=== PATIENT | male | born 1940 | race Caucasian/White ===

== ENCOUNTER 2019-09-11 11:31 | Outpatient (CLI) | payer MEDICARE, SELFPAY ==
[2019-09-11 12:34] LABS: Basophils Percent Auto 0.3 % (0.2-1.2); Eosinophils Absolute Auto 0.2 K/mm3 (0-0.3); Eosinophils Percent Auto 2.6 % (0-4.4); Hematocrit 42.4 % (42.0-52.0); Hemoglobin 13.8 g/dL (14.0-18.0); Immature Granulocyte Absolute 0.03 K/mm3 (0.00-0.031); Immature Granulocyte Percent A 0.4 % (0-0.5); Lymphocytes Absolute Auto 1.42 K/mm3 (0.9-3.2); Lymphocytes Percent Auto 18.8 % (18.3-44.2); Mean Corpuscular HGB Conc 32.5 g/dl (32-36); Mean Corpuscular Hemoglobin 29.9 pg (26-34); Mean Platelet Volume 11.1 fl (7.4-10.4); Monocytes Absolute Auto 1.2 K/mm3 (0.1-0.6); Monocytes Percent Auto 16.1 % (2.6-8.5); Neutrophils Absolute Auto 4.7 K/mm3 (1.3-6.7); Neutrophils Percent Auto 61.8 % (45.5-73.1); Platelet Count Result 278 k/mm3 (150-375); Red Blood Count 4.61 M/mm3 (4.6-6.20); Red Cell Distribution Width 13.3 % (11.5-14.5); White Blood Count 7.6 K/mm3 (4.5-10.0)
[2019-09-11 12:42] LABS: Uric Acid 7.8 mg/dL (3.5-8.5)
== END 2019-09-11 11:32 | disposition home or self-care (01) ==
PROVIDERS: PCP Family Medicine; Visit Provider Physician Assistant
DX: M25.9 Joint disorder, unspecified (principal)
CPT/HCPCS: 36415; 84550; 85025

== ENCOUNTER 2019-09-23 14:27 | Outpatient (CLI) | payer MEDICARE, SELFPAY ==
--- NOTE | ~2019-09-23 | XR_ITS ---
EXAMINATION: XR abdomen/kub 1V DATE: 09/23/2019 14:48 INDICATION: Abdominal pain and right mid flank pain TECHNIQUE: A supine view of the abdomen on 2 radiographs was obtained. COMPARISON: CT dated 11/27/2018 FINDINGS: Small bowel anastomotic suture line in the right abdomen. Phlebolith in the left hemipelvis. Atherosc lerotic calcific a cyst in the right hemipelvis. No calcifications suspicious for urolithiasis. No di lated loops of gas-filled bowel to suggest obstruction. Severe lower lumbar facet osteoarthritis. Vis ualized portions of the lung bases are clear. IMPRESSION: 1. Normal bowel gas pattern with small bowel anastomotic suture line in the right abdomen. Reviewed, dictated and finalized at location A. ICATION TECHNICIAN IMPRESSION: 1. Normal bowel gas pattern with small bowel anastomotic suture line in the rig ht abdomen.
[2019-09-23 15:36] LABS: Basophils Absolute Auto 0.1 K/mm3 (0.0-0.1); Basophils Percent Auto 0.5 % (0.2-1.2); Eosinophils Absolute Auto 0.2 K/mm3 (0-0.3); Eosinophils Percent Auto 2.2 % (0-4.4); Hematocrit 41.9 % (42.0-52.0); Hemoglobin 13.7 g/dL (14.0-18.0); Immature Granulocyte Absolute 0.03 K/mm3 (0.00-0.031); Immature Granulocyte Percent A 0.3 % (0-0.5); Lymphocytes Percent Auto 15.4 % (18.3-44.2); Mean Corpuscular HGB Conc 32.7 g/dl (32-36); Mean Corpuscular Hemoglobin 30.3 pg (26-34); Mean Corpuscular Volume 92.7 fl (80-100); Mean Platelet Volume 10.5 fl (7.4-10.4); Monocytes Absolute Auto 1.3 K/mm3 (0.1-0.6); Monocytes Percent Auto 14.4 % (2.6-8.5); Neutrophils Absolute Auto 6.1 K/mm3 (1.3-6.7); Neutrophils Percent Auto 67.2 % (45.5-73.1); Platelet Count Result 275 k/mm3 (150-375); Red Blood Count 4.52 M/mm3 (4.6-6.20); Red Cell Distribution Width 13.3 % (11.5-14.5); White Blood Count 9.1 K/mm3 (4.5-10.0)
[2019-09-23 15:49] LABS: Alanine Aminotransferase 17 U/L (4-50); Alkaline Phosphatase 59 U/L (38-126); Amylase 98 U/L (30-110); Aspartate Amino Transferase 21 U/L (17-59); Bilirubin,Total 0.5 mg/dL (0.2-1.3); Blood Urea Nitrogen 31 mg/dL (9-20); Carbon Dioxide 29 mmol/L (22-30); Chloride 98 mmol/L (98-107); Estimated Glomerular Filt Rate 49; Glucose 98 mg/dL (75-110); Lipase 71 U/L (23-300); Potassium 4.4 mmol/L (3.4-5.0); Sodium 136 mmol/L (137-145)
== END 2019-09-23 14:28 | disposition home or self-care (01) ==
LOC: ANHIMG 14:31
PROVIDERS: PCP Family Medicine; Visit Provider Physician Assistant
DX: R10.9 Unspecified abdominal pain (principal)
CPT/HCPCS: 36415; 74018; 80053; 82150; 83690; 85025

== ENCOUNTER 2019-09-24 09:19 | Outpatient (CLI) | payer MEDICARE, SELFPAY ==
--- NOTE | ~2019-09-24 | CT_ITS ---
EXAMINATION: CT abdomen pelvis wo con DATE: 09/24/2019 09:40 INDICATION: Abdominal pain. TECHNIQUE: Computed tomography (CT) of the abdomen and pelvis was performed without intravenous contr ast. Automated exposure control and iterative reconstruction technique were employed. The dose-length product was 578.32 mGy-cm. COMPARISON: CT abdomen and pelvis 11/27/2018 FINDINGS: The visualized portions of the lung bases are clear without pneumonia or pleural effusion. The heart size is normal. There are coronary artery calcifications. No pericardial effusion. There ar e cysts in the liver measuring up to 1.9 cm. The gallbladder is normal in size. Dense material in the gallbladder may be sludge or stones. The pancreas, spleen, adrenal glands, and left kidney are mar l. There is a 1.9 cm cyst in right kidney. The prostate is severely enlarged. There is diverticulosis of the colon without evidence of diverticulitis. There is a bowel anastomosis in right abdomen. Ther e is new fat stranding near the anastomosis. There are no dilated loops of bowel. The appendix is nor mal. There are no pathologically enlarged lymph nodes. There is no free intraperitoneal fluid. There is moderate lumbar spondylosis. IMPRESSION: 1. New fat stranding in right abdomen near the bowel anastomosis, likely fat necrosis. Reviewed, dictated and finalized at location A. S OFFICE ASSISTANT IMPRESSION: 1. New fat stranding in right abdomen near the bowel anastomosis, likely fat ne crosis.
== END 2019-09-24 09:20 | disposition home or self-care (01) ==
LOC: ANHIMG 09:22
PROVIDERS: PCP Family Medicine; Visit Provider Physician Assistant
DX: R10.9 Unspecified abdominal pain (principal); Z87.19 Personal history of other diseases of the digestive system
CPT/HCPCS: 74176

== ENCOUNTER 2019-09-25 09:25 | Outpatient (CLI) | payer MEDICARE, SELFPAY ==
[2019-09-25 10:04] LABS: Basophils Percent Auto 0.3 % (0.2-1.2); Eosinophils Absolute Auto 0.1 K/mm3 (0-0.3); Eosinophils Percent Auto 1.6 % (0-4.4); Immature Granulocyte Absolute 0.01 K/mm3 (0.00-0.031); Immature Granulocyte Percent A 0.1 % (0-0.5); Lymphocytes Absolute Auto 1.11 K/mm3 (0.9-3.2); Lymphocytes Percent Auto 15.7 % (18.3-44.2); Mean Corpuscular HGB Conc 32.6 g/dl (32-36); Mean Corpuscular Hemoglobin 29.6 pg (26-34); Mean Corpuscular Volume 90.9 fl (80-100); Mean Platelet Volume 10.1 fl (7.4-10.4); Monocytes Absolute Auto 1.1 K/mm3 (0.1-0.6); Monocytes Percent Auto 15.8 % (2.6-8.5); Neutrophils Absolute Auto 4.7 K/mm3 (1.3-6.7); Neutrophils Percent Auto 66.5 % (45.5-73.1); Platelet Count Result 274 k/mm3 (150-375); Red Blood Count 4.73 M/mm3 (4.6-6.20); White Blood Count 7.1 K/mm3 (4.5-10.0)
== END 2019-09-25 09:26 | disposition home or self-care (01) ==
PROVIDERS: PCP Family Medicine; Visit Provider Physician Assistant
DX: R10.9 Unspecified abdominal pain (principal)
CPT/HCPCS: 36415; 85025

== ENCOUNTER 2019-10-15 09:17 | Outpatient (CLI) | payer MEDICARE, SELFPAY ==
[2019-10-15 10:47] LABS: CRP < 0.5 mg/dL (<1.0); Uric Acid 8.3 mg/dL (3.5-8.5)
[2019-10-15 10:52] LABS: Erythrocyte Sedimentation Rate 27 mm/hr (0-20)
[2019-10-15 10:54] LABS: Rheumatoid Factor < 8.6 IU/ML (<12)
[2019-10-19 11:26] LABS: Anti Cyclic Citrullinated Pept <16 Units (<20)
== END 2019-10-15 09:18 | disposition home or self-care (01) ==
PROVIDERS: PCP Family Medicine
DX: M13.0 Polyarthritis, unspecified (principal)
CPT/HCPCS: 36415; 84550; 85652; 86140; 86200; 86430

== ENCOUNTER 2021-04-21 06:59 | Outpatient (CLI) | payer MEDICARE, SELFPAY ==
[2021-04-21 08:04] LABS: Hematocrit 42.9 % (42.0-52.0); Mean Corpuscular HGB Conc 32.6 g/dl (32-36); Mean Corpuscular Hemoglobin 31.3 pg (26-34); Mean Platelet Volume 10.8 fl (7.4-10.4); Platelet Count Result 226 k/mm3 (150-375); Red Blood Count 4.47 M/mm3 (4.6-6.20); Red Cell Distribution Width 13.2 % (11.5-14.5); White Blood Count 5.2 K/mm3 (4.5-10.0)
[2021-04-21 08:09] LABS: Alanine Aminotransferase 19 U/L (4-50); Albumin Level 4.3 g/dL (3.5-5.1); Alkaline Phosphatase 57 U/L (38-126); Anion Gap 8 mmol/L (8-16); Aspartate Amino Transferase 26 U/L (17-59); Bilirubin,Total 0.9 mg/dL (0.2-1.3); Blood Urea Nitrogen 23 mg/dL (9-20); Calcium 9.3 mg/dL (8.4-10.2); Carbon Dioxide 26 mmol/L (22-30); Chloride 104 mmol/L (98-107); Cholesterol 143 mg/dL (0-200); Estimated Glomerular Filt Rate 53; Glucose 102 mg/dL (65-110); HDL Direct 38 mg/dL; Potassium 4.4 mmol/L (3.4-5.0); Sodium 138 mmol/L (137-145); Triglycerides 241 mg/dL (<150)
[2021-04-21 08:15] LABS: Add Urine Microscopic? YES; Appearance Urine Clear (Clear); Bilirubin Urine Negative (Negative); Blood Urine Negative (Negative); Color Urine Yellow (Yellow); Glucose Urine UA Negative (Negative); Ketones Urine Negative (Negative); Leukocyte Esterase Ur Negative LEU/UL (NEGATIVE); Mucus Urine Rare /lpf; Nitrate Urine Negative (Negative); Protein Urine 1+ mg/dL (Negative); RBC Urine 0-2 /hpf (0-2); Specific Grav Ur 1.017 (1.001-1.035); Squamous Epithelial Cell Urine Rare /hpf (Few); Urobilinogen Urine Negative mg/dL (<2.0); WBC Urine 0-3 /hpf (0-3)
[2021-04-21 08:21] LABS: LDL Cholesterol Direct 50 mg/dL
== END 2021-04-21 07:00 | disposition home or self-care (01) ==
PROVIDERS: PCP Family Medicine; Visit Provider Family Medicine
DX: Z00.00 Encounter for general adult medical examination without abnormal findings (principal); I13.10 Hypertensive heart and chronic kidney disease without heart failure, with stage 1 through stage 4 chronic kidney disease, or unspecified chronic kidney disease; N18.30 Chronic kidney disease, stage 3 unspecified; I25.10 Atherosclerotic heart disease of native coronary artery without angina pectoris; E78.2 Mixed hyperlipidemia; Z87.19 Personal history of other diseases of the digestive system
CPT/HCPCS: 36415; 80053; 80061; 81001; 84443; 85027

== ENCOUNTER → 2021-08-02 09:36 | Outpatient (CLI) | payer MEDICARE, SELFPAY ==
[2021-08-03 12:30] LABS: Influenza Control Positive
[2021-08-03 19:39] LABS: SARS-CoV-2 RNA PCR Negative
== END ==
PROVIDERS: PCP Family Medicine; Visit Provider Physician Assistant
DX: R05.9 Cough, unspecified (principal); R68.89 Other general symptoms and signs; Z20.822 Contact with and (suspected) exposure to COVID-19
CPT/HCPCS: 87804; C9803; U0003; U0005

== ENCOUNTER 2021-09-02 13:14 | Outpatient (CLI) | payer MEDICARE, SELFPAY | END 2021-09-02 13:15 | disposition home or self-care (01) | PROVIDERS: PCP Family Medicine; Visit Provider Otolaryngology | DX: H90.3 Sensorineural hearing loss, bilateral (principal) | CPT/HCPCS: 92557; 92567 ==

== ENCOUNTER 2021-09-23 11:30 | Outpatient (RCR) | payer MEDICARE, SELFPAY | END 2021-09-23 23:59 | disposition home or self-care (01) | LOC: ANHAUDIO 11:30 | PROVIDERS: PCP Family Medicine; Visit Provider Family Medicine | DX: Z46.1 Encounter for fitting and adjustment of hearing aid (principal) | CPT/HCPCS: 92593; V5014 ==

== ENCOUNTER 2022-04-27 07:09 | Outpatient (CLI) | payer MEDICARE, SELFPAY ==
[2022-04-27 08:22] LABS: Hematocrit 42.2 % (42.0-52.0); Mean Corpuscular HGB Conc 33.2 g/dl (32-36); Mean Corpuscular Hemoglobin 30.8 pg (26-34); Mean Corpuscular Volume 92.7 fl (80-100); Mean Platelet Volume 10.8 fl (7.4-10.4); Platelet Count Result 264 k/mm3 (150-375); Red Blood Count 4.55 M/mm3 (4.6-6.20); Red Cell Distribution Width 13.1 % (11.5-14.5); White Blood Count 6.4 K/mm3 (4.5-10.0)
[2022-04-27 08:33] LABS: Appearance Urine Clear (Clear); Bilirubin Urine Negative (Negative); Blood Urine Negative (Negative); Color Urine Yellow (Yellow); Glucose Urine UA Negative (Negative); Ketones Urine Negative (Negative); Leukocyte Esterase Ur Negative LEU/UL (NEGATIVE); Nitrate Urine Negative (Negative); Protein Urine Negative (Negative); Urobilinogen Urine 0.2 mg/dL (<2.0); pH Urine 5.5 (5.0-9.0)
[2022-04-27 08:44] LABS: Add Urine Microscopic? NO
[2022-04-27 10:22] LABS: Alanine Aminotransferase 27 U/L (6-50); Albumin Level 4.5 g/dL (3.5-5.1); Alkaline Phosphatase 64 U/L (38-126); Anion Gap 12 mmol/L (8-16); Aspartate Amino Transferase 29 U/L (17-59); Bilirubin,Total 0.8 mg/dL (0.2-1.3); Blood Urea Nitrogen 27 mg/dL (9-20); Calcium 9.3 mg/dL (8.4-10.2); Carbon Dioxide 24 mmol/L (22-30); Chloride 104 mmol/L (98-107); Cholesterol 142 mg/dL (0-200); Estimated Glomerular Filt Rate 45; Glucose 106 mg/dL (65-110); HDL Direct 32 mg/dL; Potassium 4.5 mmol/L (3.4-5.0); Sodium 140 mmol/L (137-145); Triglycerides 321 mg/dL (<150)
[2022-04-27 10:35] LABS: LDL Cholesterol Direct 42 mg/dL
== END 2022-04-27 07:10 | disposition home or self-care (01) ==
LOC: ANHLAB 07:12
PROVIDERS: PCP Family Medicine; Visit Provider Family Medicine
DX: E78.2 Mixed hyperlipidemia (principal); Z87.19 Personal history of other diseases of the digestive system; I13.10 Hypertensive heart and chronic kidney disease without heart failure, with stage 1 through stage 4 chronic kidney disease, or unspecified chronic kidney disease; N18.30 Chronic kidney disease, stage 3 unspecified; I25.10 Atherosclerotic heart disease of native coronary artery without angina pectoris; Z00.00 Encounter for general adult medical examination without abnormal findings
CPT/HCPCS: 36415; 80053; 80061; 81003; 84443; 85027

== ENCOUNTER 2022-05-18 11:39 | Outpatient (CLI) | payer MEDICARE, SELFPAY ==
--- NOTE | ~2022-05-18 | CT_ITS ---
EXAMINATION: CT brain wo con DATE: 05/18/2022 12:00 INDICATION: Headache. Loss of balance. TECHNIQUE: Computed tomography (CT) of the head was performed without intravenous contrast. The mA wa s adjusted according to patient size. Iterative reconstruction technique was employed. The dose-lengt h product was 605.33 mGy-cm. 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 There is no intracranial hemorrhage or abno rmal intracranial mass lesion. The ventricles are normal in size. The paranasal sinuses are clear. Th e mastoid air cells are normal. The orbits are normal. IMPRESSION: 1. 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 Reviewed, dictated and finalized at location A.
== END 2022-05-18 11:40 | disposition home or self-care (01) ==
PROVIDERS: PCP Family Medicine; Visit Provider Nurse Practitioner Family
DX: R51.9 Headache, unspecified (principal); I63.9 Cerebral infarction, unspecified
CPT/HCPCS: 70450

== ENCOUNTER 2022-05-25 13:08 | Outpatient (CLI) | payer MEDICARE, SELFPAY ==
--- NOTE | ~2022-05-25 | CT_ITS ---
EXAMINATION: CT brain wo/w & sinus wo con DATE: 05/25/2022 14:12 INDICATION: Eye pain. TECHNIQUE: Computed tomography (CT) of the head was performed without and with 100 mL Omnipaque [address] of the paranasal sinuses was performed without contrast. The mA was adjusted according to patient size. Iterative reconstruction technique was employed. The dose-length product w as 1513.33 mGy-cm. COMPARISON: Head CT 05/18/2022 FINDINGS: CT HEAD: There is a small old infarct in the right parietal lobe. There is no intracranial hemorrhag e, acute infarction, or abnormal intracranial mass lesion. The ventricles are normal in size. The mas toid air cells are normal. The orbits are normal. CT SINUSES: There is mild mucosal thickening in the frontal recesses and ethmoid sinuses. The sphenoi d and maxillary sinuses are clear. The ostiomeatal units are patent. The nasal septum is at midline. IMPRESSION: 1. 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 2. Mild mucosal thickening in the paranasal sinuses. Reviewed, dictated and finalized at location A.
== END 2022-05-25 13:09 | disposition home or self-care (01) ==
PROVIDERS: PCP Family Medicine; Visit Provider Specialist
DX: H57.11 Ocular pain, right eye (principal); R93.0 Abnormal findings on diagnostic imaging of skull and head, not elsewhere classified
CPT/HCPCS: 70470; 70486

== ENCOUNTER 2022-09-04 07:53 | Outpatient (CLI) | payer MEDICARE, SELFPAY | END 2022-09-04 07:54 | disposition home or self-care (01) | LOC: ANHAUDIO 07:55 | PROVIDERS: PCP Family Medicine; Visit Provider Nurse Practitioner Family | DX: H90.3 Sensorineural hearing loss, bilateral (principal) | CPT/HCPCS: 92557; 92567 ==

== ENCOUNTER 2022-09-21 13:00 | Outpatient (RCR) | payer MEDICARE, SELFPAY | END 2022-09-21 23:59 | disposition home or self-care (01) | LOC: ANHAUDIO 13:00 | PROVIDERS: PCP Family Medicine; Visit Provider Family Medicine | DX: Z46.1 Encounter for fitting and adjustment of hearing aid (principal); H91.92 Unspecified hearing loss, left ear | CPT/HCPCS: 99199; V5261 ==

== ENCOUNTER 2022-10-31 09:08 | Outpatient (CLI) | payer MEDICARE, SELFPAY ==
[2022-10-31 10:35] LABS: Alanine Aminotransferase 24 U/L (6-50); Albumin Level 4.3 g/dL (3.5-5.1); Alkaline Phosphatase 67 U/L (38-126); Anion Gap 6 mmol/L (8-16); Aspartate Amino Transferase 26 U/L (17-59); Bilirubin,Total 0.7 mg/dL (0.2-1.3); Blood Urea Nitrogen 35 mg/dL (9-20); Calcium 8.9 mg/dL (8.4-10.2); Carbon Dioxide 29 mmol/L (22-30); Chloride 104 mmol/L (98-107); Estimated Glomerular Filt Rate 53; Glucose 91 mg/dL (65-110); Potassium 5.1 mmol/L (3.4-5.0); Sodium 139 mmol/L (137-145)
== END 2022-10-31 09:09 | disposition home or self-care (01) ==
PROVIDERS: PCP Family Medicine; Visit Provider Family Medicine
DX: I13.10 Hypertensive heart and chronic kidney disease without heart failure, with stage 1 through stage 4 chronic kidney disease, or unspecified chronic kidney disease (principal)
CPT/HCPCS: 36415; 80053

== ENCOUNTER 2023-10-31 09:10 | Outpatient (CLI) | payer MEDICARE, SELFPAY ==
--- NOTE | ~2023-10-31 | XR_ITS ---
EXAMINATION:XR_CERV2-3V_CR DATE: 10/31/2023 09:53 INDICATION: Neck pain TECHNIQUE: AP, lateral, and odontoid views of the cervical spine are provided. COMPARISON: None FINDINGS: There are 3 mm of anterolisthesis of C4 on C5. The odontoid process is intact. No fracture is identified. The vertebral body heights are maintained. There is moderate loss of intervertebral di sc space height from C4-5 through C6-7. Prevertebral soft tissues are normal. Small degenerative oste ophytes project from the anterior endplates of multiple vertebral bodies. There is multilevel moderat e facet and uncovertebral joint osteoarthritis. IMPRESSION: 1. Moderate cervical spondylosis without acute findings. Reviewed, dictated and finalized at location F.
[2023-10-31 10:07] LABS: Alanine Aminotransferase 24 U/L (6-50); Albumin Level 4.1 g/dL (3.5-5.1); Alkaline Phosphatase 62 U/L (38-126); Anion Gap 6 mmol/L (8-16); Aspartate Amino Transferase 26 U/L (17-59); Bilirubin,Total 0.7 mg/dL (0.2-1.3); Blood Urea Nitrogen 32 mg/dL (9-20); Calcium 9.1 mg/dL (8.4-10.2); Carbon Dioxide 26 mmol/L (22-30); Chloride 104 mmol/L (98-107); Estimated Glomerular Filt Rate 52; Glucose 98 mg/dL (65-110); Potassium 4.7 mmol/L (3.4-5.0); Sodium 136 mmol/L (137-145)
== END 2023-10-31 09:11 | disposition home or self-care (01) ==
PROVIDERS: PCP Family Medicine; Visit Provider Family Medicine
DX: I13.10 Hypertensive heart and chronic kidney disease without heart failure, with stage 1 through stage 4 chronic kidney disease, or unspecified chronic kidney disease (principal); M54.2 Cervicalgia; M47.892 Other spondylosis, cervical region
CPT/HCPCS: 36415; 72040; 80053

== ENCOUNTER 2024-05-01 07:13 | Outpatient (CLI) | payer MEDICARE, SELFPAY ==
[2024-05-01 08:38] LABS: Hematocrit 41.8 % (42.0-52.0); Hemoglobin 13.7 g/dL (14.0-18.0); Mean Corpuscular HGB Conc 32.8 g/dl (32-36); Mean Corpuscular Hemoglobin 30.3 pg (26-34); Mean Corpuscular Volume 92.5 fl (80-100); Mean Platelet Volume 10.9 fl (7.4-10.4); Platelet Count Result 299 k/mm3 (150-375); Red Blood Count 4.52 M/mm3 (4.6-6.20); Red Cell Distribution Width 13.6 % (11.5-14.5); White Blood Count 8.9 K/mm3 (4.5-10.0)
[2024-05-01 08:53] LABS: Carbon Dioxide 25 mmol/L (22-30); Chloride 101 mmol/L (98-107); Potassium 4.4 mmol/L (3.4-5.0); Sodium 137 mmol/L (137-145)
[2024-05-01 08:54] LABS: Alanine Aminotransferase 21 U/L (6-50); Albumin Level 4.5 g/dL (3.5-5.1); Alkaline Phosphatase 51 U/L (38-126); Anion Gap 11 mmol/L (4-12); Aspartate Amino Transferase 24 U/L (17-59); Bilirubin,Total 0.9 mg/dL (0.2-1.3); Blood Urea Nitrogen 33 mg/dL (9-20); Calcium 9.2 mg/dL (8.4-10.2); Cholesterol 112 mg/dL (0-200); Estimated Glomerular Filt Rate 48; Glucose 88 mg/dL (65-110); HDL Direct 34 mg/dL; Triglycerides 131 mg/dL (<150)
[2024-05-01 08:58] LABS: Add Urine Microscopic? YES; Appearance Urine Clear (Clear); Bacteria Urine None Seen /hpf; Bilirubin Urine Negative (Negative); Blood Urine Negative (Negative); Color Urine Yellow (Yellow); Glucose Urine UA Negative (Negative); Ketones Urine Negative (Negative); Leukocyte Esterase Ur Negative LEU/UL (Negative); Nitrate Urine Negative (Negative); Non Pathogenic Casts 0-2; Protein Urine Trace mg/dL (Negative); RBC Urine 0-2 /hpf (0-2); Specific Grav Ur 1.015 (1.001-1.035); Squamous Epithelial Cell Urine None Seen /hpf (Few); Urobilinogen Urine 0.2 mg/dL (<2.0); WBC Urine 0-5 /hpf (0-3)
[2024-05-01 09:04] LABS: LDL Cholesterol Direct 48 mg/dL
== END 2024-05-01 07:14 | disposition home or self-care (01) ==
LOC: ANHLAB 07:16
PROVIDERS: PCP Family Medicine; Visit Provider Physician Assistant Medical
DX: E78.2 Mixed hyperlipidemia (principal); I13.10 Hypertensive heart and chronic kidney disease without heart failure, with stage 1 through stage 4 chronic kidney disease, or unspecified chronic kidney disease; I25.10 Atherosclerotic heart disease of native coronary artery without angina pectoris; I48.0 Paroxysmal atrial fibrillation; N18.30 Chronic kidney disease, stage 3 unspecified; N40.1 Benign prostatic hyperplasia with lower urinary tract symptoms; R97.20 Elevated prostate specific antigen [PSA]; Z87.19 Personal history of other diseases of the digestive system
CPT/HCPCS: 36415; 80053; 80061; 81001; 84443; 85027

== ENCOUNTER 2024-05-05 10:37 | Outpatient (CLI) | payer MEDICARE, SELFPAY ==
[2024-05-05 12:19] LABS: Prostate Specific Antigen 4.6 ng/mL (< OR = 4.0)
[2024-05-05 12:24] LABS: Vitamin D 25 Hydroxy 52.8 ng/mL
[2024-05-05 13:02] LABS: Folic Acid > 20.0 ng/mL (2.76->20)
== END 2024-05-05 10:38 | disposition home or self-care (01) ==
LOC: ANHLAB 10:45
PROVIDERS: PCP Family Medicine; Visit Provider Family Medicine
DX: E55.9 Vitamin D deficiency, unspecified (principal); R53.83 Other fatigue; R97.20 Elevated prostate specific antigen [PSA]; Z12.5 Encounter for screening for malignant neoplasm of prostate
CPT/HCPCS: 36415; 82306; 82607; 82746; 84153

== ENCOUNTER 2024-05-05 11:07 | Outpatient (CLI) | payer MEDICARE, SELFPAY ==
--- NOTE | ~2024-05-05 | XR_ITS ---
Clinical Indication: Cough PA and lateral views of the chest: Comparison: 04/10/2019 Findings: The lungs are clear, without evidence of focal consolidation or pleural effusion. Cardiome diastinal silhouette is within normal limits. Bones and soft tissues are unremarkable. Impression: Normal chest. Reviewed, dictated and finalized at [facility]. Impression: Normal chest.
== END 2024-05-05 11:08 | disposition home or self-care (01) ==
PROVIDERS: PCP Family Medicine; Visit Provider Family Medicine
DX: R05.9 Cough, unspecified (principal)
CPT/HCPCS: 71046

== ENCOUNTER 2024-05-19 06:39 | Inpatient (IN) | payer MEDICARE, SELFPAY ==
[2024-05-19] VITALS (24 sets, daily range): BP systolic 113–147; BP diastolic 43–78; PULSE 72–90; RESP 14–21; TEMP 36.2–36.9; O2SAT 97–100; BMI 25.4
--- NOTE | 2024-05-19 07:11 | ECG_ITS ---
Test Date: 2024-05-19 08:34:55 Measurements Intervals Victor Rate: 80 P: 0 GA: 0 QRS: -29 QRSD: 134 T: 109 QT: 393 QTc: 456 Interpretive Statements ATRIAL FLUTTER/TACHYCARDIA LEFT BUNDLE BRANCH BLOCK [120+ ms QRS DURATION, 80+ ms Q/S IN V1/V2, 85+ ms R IN I/aVL/V5/V6] ABNORMAL ECG No previous ECG available for comparison Electronically Signed On 05-19-2024 14:33:57 CDT by Eduardo Villagomez M.D.
--- NOTE | 2024-05-19 07:26 | ED.GENADULT ---
HPI - General Adult General Chief complaint: Dizziness Stated complaint: light headed Time Seen by Provider: 05/19/24 07:01 History of Present Illness HPI narrative: 83-year-old male presenting to the emergency department for evaluation for lightheaded dizziness. Patient did have a dental extraction last Sunday. Patient has been taking penicillin but states this does bother his stomach. Patient states he has had stomach irritation since starting the penicillin. Patient is also reports associated lightheaded dizziness. Patient did have a black soft tarry stool this morning. Patient is on Xarelto. Patient denies any prior history of GI bleed. Patient had stopped his Xarelto for the to the extraction but did restart after the extraction. Related Data Home Medications Medication Instructions Recorded Confirmed ascorbic acid (vitamin C) 500 mg 500 mg PO DAILY 06/14/19 05/19/24 tablet (Vitamin C) rivaroxaban 20 mg tablet (Xarelto) 20 mg PO DAILY 06/14/19 05/19/24 mtlzxxizeqof-bqrukkjg-xceskw tablet 1 tablet PO DAILY 05/19/24 05/19/24 penicillin V potassium 500 mg 500 mg PO DAILY 05/19/24 05/19/24 tablet Allergies Allergy/AdvReac Type Severity Reaction Status Date / Time lincomycin Allergy Intermediate RASH Verified 05/19/24 06:50 Cephalosporins Allergy Unknown Unknown Verified 05/19/24 06:50 Sulfa (Sulfonamide Allergy Unknown Unknown Verified 05/19/24 06:50 Antibiotics) Tetracyclines Allergy Unknown Unknown Verified 05/19/24 06:50 Review of Systems Review of Systems: All systems reviewed & are unremarkable except as noted in HPI and below PMFSH Past Medical History Medical History Atrial fibrillation CAD (coronary artery disease) CKD (chronic kidney disease), stage III Elevated PSA Hearing loss Hiatal hernia Hypertension Surgical History Surgical History History of lumbar surgery S/P coronary artery stent placement S/P small bowel resection Family History Family History Sibling Hypertension Carcinoma of colon Family history of coronary artery disease Mother Cerebrovascular accident Father Cerebral aneurysm Social History Social History (Updated 05/19/24 @ 16:45 by Debby Huerta APRN) Social History: 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 He spent 20 of his years living in [place], [place] before returning to [place]. He has a son, Timothy. He quit drinking alcohol 1 year ago but was never a heavy drinker. He is a former smoker. He denies illicit drug use. Smoking packs per day: 1 Smoking cigarettes per day: 20.0 Years smoked: 30 Smoking pack-years: 30.00 Smoking status: Never smoker Tobacco type: cigarettes Second hand tobacco smoke exposure: No Smoking end date: 08/13/87 Alcohol intake: never Drinks per week: 7 Substance use: never Substance use type: does not use Do You Feel Safe in your Home?: Yes Lack of Transportation: No Lack of Food: Never True Current Housing: I Have Housing Concerned About Future Housing: No Difficulty Paying Gas/Electric Bills: No Difficulty Paying for Meds: No Currently Unemployed: No Education: Master's Degree or Higher Difficulty w/ Childcare or Family Care: No Living arrangements: with family Occupation/Education: retired Gender identity (if verbalized by the patient): Male Spiritual care concerns: No Exam Narrative: APPEARANCE: Well appearing, no pain, no distress, well-nourished. HEAD: normocephalic, atraumatic. EYES: PERRLA/EOMI, conjunctivae clear. NOSE: Normal no drainage EARS:TMS clear with good light reflex. THROAT: Pharynx clear, no exudate. NECK: Supple. No adenopathy, no masses. RESPIRATORY: Airway patent, respirations nonlabored. Clear to auscultation bilaterally, no r
[2024-05-19 08:11] LABS: Add Urine Microscopic? NO; Appearance Urine Clear (Clear); Bilirubin Urine Negative (Negative); Blood Urine Negative (Negative); Color Urine Yellow (Yellow); Glucose Urine UA Negative (Negative); Ketones Urine Trace mg/dL (Negative); Leukocyte Esterase Ur Negative LEU/UL (Negative); Nitrate Urine Negative (Negative); Protein Urine Negative (Negative); Specific Grav Ur 1.019 (1.001-1.035); Urobilinogen Urine 0.2 mg/dL (<2.0)
--- NOTE | 2024-05-19 08:11 | PC.NURSE ---
Pt denies h/a, syncope or chest pain. Ortho statics completed, labs drawn.
[2024-05-19 08:14] LABS: Basophils Percent Auto 0.2 % (0.2-1.2); Eosinophils Percent Auto 0.2 % (0-4.4); Hematocrit 31.1 % (42.0-52.0); Hemoglobin 9.9 g/dL (14.0-18.0); Immature Granulocyte Absolute 0.02 K/mm3 (0.00-0.031); Immature Granulocyte Percent A 0.2 % (0-0.5); Lymphocytes Absolute Auto 0.84 K/mm3 (0.9-3.2); Lymphocytes Percent Auto 10.1 % (18.3-44.2); Mean Corpuscular HGB Conc 31.8 g/dl (32-36); Mean Corpuscular Volume 94.2 fl (80-100); Mean Platelet Volume 11.2 fl (7.4-10.4); Monocytes Absolute Auto 0.7 K/mm3 (0.1-0.6); Neutrophils Absolute Auto 6.7 K/mm3 (1.3-6.7); Neutrophils Percent Auto 81.3 % (45.5-73.1); Platelet Count Result 268 k/mm3 (150-375); Red Cell Distribution Width 13.4 % (11.5-14.5); White Blood Count 8.3 K/mm3 (4.5-10.0)
[2024-05-19 08:20] LABS: Alanine Aminotransferase 18 U/L (6-50); Albumin Level 3.6 g/dL (3.5-5.1); Alkaline Phosphatase 38 U/L (38-126); Anion Gap 10 mmol/L (4-12); Aspartate Amino Transferase 20 U/L (17-59); Bilirubin,Total 0.3 mg/dL (0.2-1.3); Blood Urea Nitrogen 77 mg/dL (9-20); Calcium 8.6 mg/dL (8.4-10.2); Carbon Dioxide 20 mmol/L (22-30); Chloride 108 mmol/L (98-107); Estimated CRCL calculation 38 ml/min; Estimated Glomerular Filt Rate 52; Glucose 118 mg/dL (65-110); Potassium 4.9 mmol/L (3.4-5.0); Sodium 138 mmol/L (137-145)
[2024-05-19 08:22] LABS: INR 1.7; Prothrombin Time 20.8 Seconds (11.1-14.7)
[2024-05-19 08:23] LABS: Partial Thromboplastin Time 34.6 Seconds (22.3-36.8)
[2024-05-19] MEDS: PANTOPRAZOLE SODIUM IV 40 MG VIAL IV PUSH ×2 (08:54→20:17)
[2024-05-19] MEDS: FAMOTIDINE 20 MG/2 ML VIAL IV PUSH (08:55)
--- NOTE | 2024-05-19 09:00 | PC.NURSE ---
Pt assisted standing to void, became fair, increase dizziness & feeling of syncope. Pt assisted back to bed. Instructed to call for help when needing to get up.
[2024-05-19 10:03] LABS: Iron 89 ug/dL (49-181)
[2024-05-19 10:13] LABS: Percent Iron Saturation 32 % (20-50)
--- NOTE | 2024-05-19 11:37 | ADMGEN ---
This patient, Mian Hartman, was admitted to 3 [facility] Surg Room 307-02. Patient/family oriented to hospital policies and general routines including ID bracelet, bed and alarms, visiting hours, pain management, procedures, bathroom and other care routines, personal items, smoking policy, room service/diet, and visiting hours. Information on how to activate the Rapid Response Team has been discussed. Patient/Family are encouraged to report perceived risks to care and to ask questions if they do not understand what they are told or what they should do.
--- NOTE | 2024-05-19 12:00 | PC.NURSE ---
On 05/19/24, the student, [Sanotsh Gutierrez ], provided care and completed [facility] documentation on this patient. I have reviewed the student's documentation and agree with the findings.
[2024-05-19] MEDS: ONDANSETRON INJ 4 MG/2 ML VIAL IV PUSH (13:10)
--- NOTE | 2024-05-19 13:39 | PM.IMHP ---
H&P: HPI History of Present Illness Date/Time: 05/19/24 13:39 Chief Complaint: Dizziness Narrative: This is an 83-year-old gentleman with a past medical history significant for CKD stage 3, hypertension, atrial fibrillation on Xarelto, hiatal hernia, osteoarthritis, and CAD with coronary artery stent who presented to the emergency room with complaints of dizziness. The patient provides the following history. Last week on Sunday he had a tooth extraction and was given oral penicillin for 7 days. After taking a couple of doses he was having diarrhea and decided to take an Imodium with good result. This morning around 0400 he had a dark black and tarry bowel movement with a second black stool occurring at 0500. At this time he had significant dizziness, became pale, and diaphoretic with near fainting. He called 911 and was transported to [place] ED for evaluation. He states he has never had an episode like this before. On exam he appears comfortable resting in bed. He reports he was able to urinate at the side of the bed without recurrent dizziness. He denies headache, sore throat, runny nose, fever, chills, chest pain, shortness of breath, nausea, vomiting, diarrhea, or open wounds/sores. He did have an episode of mid-lower abdominal pain prior to his EGD which he attributed to hunger pains . This pain has since resolved. In the emergency room, labs were significant for hemoglobin 9.9 adult of 13.7, MCHC 31.8, neutrophils anxiety, PT 28 currently chloride 108, CO2 20, BUN 77, creatinine 1.30, and glucose 118. Urinalysis showed clear yellow urine with trace ketones 80s. EKG on admission showed atrial flutter with a rate of 80 and a left bundle-branch block. No previous study for comparison. Orthostatic vital signs were normal. Vitals on arrival were blood pressure 132/75 mmHg, heart rate 72, RR 20, 100% room air, and 97.6. The patient was admitted with GI consult for emergent EGD for suspected upper GI bleed. Review of Systems Review of Systems: All systems reviewed & are unremarkable except as noted in HPI and below PMFSH Past Medical History Medical History Atrial fibrillation CAD (coronary artery disease) CKD (chronic kidney disease), stage III Elevated PSA Hearing loss Hiatal hernia Hypertension Surgical History Surgical History History of lumbar surgery S/P coronary artery stent placement S/P small bowel resection Family History Family History Sibling Hypertension Carcinoma of colon Family history of coronary artery disease Mother Cerebrovascular accident Father Cerebral aneurysm Social History Social History (Updated 05/19/24 @ 16:45 by Debby Huerta APRN) Social History: 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 He spent 20 of his years living in [place], [place] before returning to [place]. He has a son, Timothy. He quit drinking alcohol 1 year ago but was never a heavy drinker. He is a former smoker. He denies illicit drug use. Smoking packs per day: 1 Smoking cigarettes per day: 20.0 Years smoked: 30 Smoking pack-years: 30.00 Smoking status: Never smoker Tobacco type: cigarettes Second hand tobacco smoke exposure: No Smoking end date: 08/13/87 Alcohol intake: never Drinks per week: 7 Substance use: never Substance use type: does not use Do You Feel Safe in your Home?: Yes Lack of Transportation: No Lack of Food: Never True Current Housing: I Have Housing Concerned About Future Housing: No Difficulty Paying Gas/Electric Bills: No Difficulty Paying for Meds: No Currently Unemployed: No Education: Master's Degree or Higher Difficulty w/ Childcare or Family Care: No Living arrangements: with family Occupation/Education: retired Gender identity (if verbal
[2024-05-19] MEDS: LACTATED RINGERS 1,000 ML 150 ML IV CONT (13:45)
--- NOTE | 2024-05-19 13:54 | WPDANESEPPF ---
Anes - Initial Pre Proc Eval Procedure: Operation Date: 05/19/24 15:00 Proposed Procedures p Esophagogastroduodenoscopy - Marvin Anguiano MD Date/Time: 05/19/24 13:54 Surgeon: India Barnes MD Pre Op Diagnosis: upper gi bleed,anemia,lightheaded Patient Data Age: 83 Gender: M Height: 1.78 m Weight: 80.6 kg Last Vital Signs Temp 36.2 C L 05/19/24 13:35 Pulse 83 05/19/24 13:35 Resp 16 05/19/24 13:35 BP 123/59 L 05/19/24 13:35 Pulse Ox 100 05/19/24 13:35 O2 Del Method Room Air 05/19/24 13:35 Allergies Allergy/AdvReac Type Severity Reaction Status Date / Time lincomycin Allergy Intermediate RASH Verified 05/19/24 06:50 Cephalosporins Allergy Unknown Unknown Verified 05/19/24 06:50 Sulfa (Sulfonamide Allergy Unknown Unknown Verified 05/19/24 06:50 Antibiotics) Tetracyclines Allergy Unknown Unknown Verified 05/19/24 06:50 Home Medications Medication Instructions Recorded Confirmed Type ascorbic acid (vitamin C) 500 mg 500 mg PO DAILY 06/14/19 05/19/24 History tablet (Vitamin C) rivaroxaban 20 mg tablet (Xarelto) 20 mg PO DAILY 06/14/19 05/19/24 History albuterol sulfate 90 mcg/actuation 1 inh inhalation Q4H PRN shortness 03/28/23 05/19/24 Rx aerosol inhaler of breath or wheezing #6.7 grams irbesartan 150 1 tablet PO DAILY #90 tabs 02/11/24 05/19/24 Rx mg-hydrochlorothiazide 12.5 mg tablet tramadol 50 mg tablet 50 mg PO BID PRN severe pain 03/25/24 05/19/24 Rx (scale score 7-10) #30 tabs silodosin 4 mg capsule See Rx Instructions .Route 03/31/24 05/19/24 Rx .COMPLEX #90 caps finasteride 5 mg tablet 5 mg PO DAILY #30 tabs 05/05/24 05/19/24 Rx simvastatin 20 mg tablet 20 mg PO DAILY #90 tabs 05/09/24 05/19/24 Rx abidlyfrkzas-holzfoqy-qrugvy tablet 1 tablet PO DAILY 05/19/24 05/19/24 History penicillin V potassium 500 mg 500 mg PO DAILY 05/19/24 05/19/24 History tablet Laboratory Tests 05/19/24 08:01 WBC 8.3 K/mm3 (4.5-10.0) RBC 3.30 L M/mm3 (4.6-6.20) Hgb 9.9 L D g/dL (14.0-18.0) Hct 31.1 L % (42.0-52.0) MCV 94.2 fl (80-100) MCH 30.0 pg (26-34) MCHC 31.8 L g/dl (32-36) RDW 13.4 % (11.5-14.5) Plt Count 268 k/mm3 (150-375) MPV 11.2 H fl (7.4-10.4) Immature Gran % (Auto) 0.2 % (0-0.5) Neut % (Auto) 81.3 H % (45.5-73.1) Lymph % (Auto) 10.1 L % (18.3-44.2) Cobb % (Auto) 8.0 % (2.6-8.5) Eos % (Auto) 0.2 % (0-4.4) Baso % (Auto) 0.2 % (0.2-1.2) Lymph # (Auto) 0.84 L K/mm3 (0.9-3.2) Cobb # (Auto) 0.7 H K/mm3 (0.1-0.6) Eos # (Auto) 0.0 K/mm3 (0-0.3) Baso # (Auto) 0.0 K/mm3 (0.0-0.1) Abs Immat Gran (auto) 0.02 K/mm3 (0.00-0.031) Absolute Neuts (auto) 6.7 K/mm3 (1.3-6.7) Absolute Nucleated RBC 0.000 K/mm3 (0.0-0.012) Nucleated RBC % 0.0 % (0.0-0.2) PT 20.8 H Seconds (11.1-14.7) INR 1.7 APTT 34.6 Seconds (22.3-36.8) Sodium 138 mmol/L (137-145) Potassium 4.9 mmol/L (3.4-5.0) Chloride 108 H mmol/L (98-107) Carbon Dioxide 20 L mmol/L (22-30) Anion Gap 10 mmol/L (4-12) BUN 77 H D mg/dL (9-20) Creatinine 1.30 mg/dL (0.7-1.3) Estim Creat Clear Calc 38 ml/min Estimated GFR 52 L (59 - ) Glucose 118 H mg/dL (65-110) Calcium 8.6 mg/dL (8.4-10.2) Iron 89 ug/dL (49-181) TIBC 282 ug/dL (265-497) % Saturation 32 % (20-50) Total Bilirubin 0.3 mg/dL (0.2-1.3) AST 20 U/L (17-59) ALT 18 U/L (6-50) Alkaline Phosphatase 38 U/L (38-126) Total Protein 6.0 L g/dL (6.3-8.2) Albumin 3.6 g/dL (3.5-5.1) Urine Color Yellow (Yellow) Urine Appearance Clear (Clear) Urine pH 5.0 (5.0-9.0) Ur Specific [place] 1.019 (1.001-1.035) Urine Protein Negative mg/dL (Negative) Urine Glucose (UA) Negative mg/dL (Negative) Urine Ketones Trace H mg/dL (Negative) U
--- NOTE | 2024-05-19 14:15 | WPDGICN ---
Assessment and Plan Assessment and plan (1) Anemia: Code(s): D64.9 - Anemia, unspecified Status: Acute (2) Light-headed: Code(s): R42 - Dizziness and giddiness Status: Acute (3) Acute upper GI bleed: Code(s): K92.2 - Gastrointestinal hemorrhage, unspecified Status: Acute (4) S/P coronary artery stent placement: Code(s): Z95.5 - Presence of coronary angioplasty implant and graft Status: Acute (5) Melena: Code(s): K92.1 - Melena Status: Acute Plan Patient is currently anticoagulated and presented with melena, presyncopal symptoms and anemia. Will proceed with EGD and will decide further management upon findings. GI Consult Note Consult date/time: 05/19/24 14:15 Reason for consult: Melena and anemia HPI: 83-year-old male presenting to the emergency department for evaluation for lightheaded dizziness. P Patient states he has had stomach irritation since starting the penicillin. Patient is also reports associated lightheaded dizziness. Patient did have a black soft tarry stool this morning. Patient is on Xarelto and has a history of coronary artery disease, status post stent placement. He denies NSAIDS. Never had GI bleeding of history of ulcers. Review of Systems Review of Systems: All systems reviewed & are unremarkable except as noted in HPI and below PMFSH Past Medical History Medical History CKD (chronic kidney disease), stage III Elevated PSA Hearing loss Hypertension Surgical History Surgical History History of lumbar surgery S/P coronary artery stent placement S/P small bowel resection Family History Family History Sibling Hypertension Carcinoma of colon Family history of coronary artery disease Mother Cerebrovascular accident Father Cerebral aneurysm Social History Social History Smoking packs per day: 1 Smoking cigarettes per day: 20.0 Years smoked: 30 Smoking pack-years: 30.00 Smoking status: Never smoker Tobacco type: cigarettes Second hand tobacco smoke exposure: No Smoking end date: 08/13/87 Alcohol intake: never Drinks per week: 7 Substance use: never Substance use type: does not use Do You Feel Safe in your Home?: Yes Lack of Transportation: No Lack of Food: Never True Current Housing: I Have Housing Concerned About Future Housing: No Difficulty Paying Gas/Electric Bills: No Difficulty Paying for Meds: No Currently Unemployed: No Education: Master's Degree or Higher Difficulty w/ Childcare or Family Care: No Living arrangements: with family Occupation/Education: retired Gender identity (if verbalized by the patient): Male Spiritual care concerns: No Meds Home Medications and Allergies Home Medications Medication Instructions Recorded Confirmed Type ascorbic acid (vitamin C) 500 mg 500 mg PO DAILY 06/14/19 05/19/24 History tablet (Vitamin C) rivaroxaban 20 mg tablet (Xarelto) 20 mg PO DAILY 06/14/19 05/19/24 History albuterol sulfate 90 mcg/actuation 1 inh inhalation Q4H PRN shortness 03/28/23 05/19/24 Rx aerosol inhaler of breath or wheezing #6.7 grams irbesartan 150 1 tablet PO DAILY #90 tabs 02/11/24 05/19/24 Rx mg-hydrochlorothiazide 12.5 mg tablet tramadol 50 mg tablet 50 mg PO BID PRN severe pain 03/25/24 05/19/24 Rx (scale score 7-10) #30 tabs silodosin 4 mg capsule See Rx Instructions .Route 03/31/24 05/19/24 Rx .COMPLEX #90 caps finasteride 5 mg tablet 5 mg PO DAILY #30 tabs 05/05/24 05/19/24 Rx simvastatin 20 mg tablet 20 mg PO DAILY #90 tabs 05/09/24 05/19/24 Rx hqkouamllebo-ygreqlxd-oxtyen tablet 1 tablet PO DAILY 05/19/24 05/19/24 History penicillin V potassium 500 mg 500 mg PO DAILY 05/19/24 05/19/24 Hist
[2024-05-19] MEDS: EPINEPHrine INJ 1 MG/10 ML SYRINGE XX (14:44)
--- NOTE | 2024-05-19 16:07 | WPDGIPROGNO ---
Progress Note: A&P Assessment and Plan (1) Melena: Code(s): K92.1 - Melena Status: Acute Plan Considering the patient's age, status of anticoagulation, and presentation with hemodynamic instability, I suggest he should be monitored in the IMU. In addition, his be kept NPO for at least 24 hours in case he needs to be re-endoscoped. Pantoprazole every 12 hours should be continued and Xarelto discontinued for now. Please check hemoglobin and hematocrit every 8 hours. Will continue to follow. Subjective Date/time seen: 05/19/24 16:07 Interval history: See EGD report. Pyloric channel ulcer active bleeding, controlled with combination of epinephrine injection and gold probe cauterization. The patient remained hemodynamically stable. Review of Systems Review of Systems: All systems reviewed & are unremarkable except as noted in HPI and below Objective Data Vital Signs Vital Signs: Vital Signs - 24 hr 05/19/24 06:39 05/19/24 06:48 05/19/24 07:26 Temperature 98.5 F Pulse Rate 84 84 85 Respiratory Rate 15 Blood Pressure 132/75 126/64 Pulse Oximetry 99 Oxygen Delivery Room Air 05/19/24 07:26 05/19/24 07:26 05/19/24 09:02 Temperature Pulse Rate 90 90 83 Respiratory Rate 16 Blood Pressure 131/64 126/63 147/66 H Pulse Oximetry 100 Oxygen Delivery 05/19/24 06:47 05/19/24 07:01 05/19/24 07:31 Temperature Pulse Rate 84 85 83 Respiratory Rate 14 19 19 Blood Pressure 132/75 131/66 136/64 Pulse Oximetry 100 98 98 Oxygen Delivery 05/19/24 07:46 05/19/24 07:52 05/19/24 08:31 Temperature 98.2 F Pulse Rate 83 84 73 Respiratory Rate 20 16 20 Blood Pressure 126/64 131/64 118/60 Pulse Oximetry 100 98 Oxygen Delivery 05/19/24 10:03 05/19/24 10:39 05/19/24 12:00 Temperature 98.2 F 97.6 F Pulse Rate 75 84 76 Respiratory Rate 16 Blood Pressure 133/68 139/61 Pulse Oximetry 99 99 Oxygen Delivery 05/19/24 13:35 05/19/24 15:05 05/19/24 15:15 Temperature 97.2 F L Pulse Rate 83 75 76 Respiratory Rate 16 20 21 H Blood Pressure 123/59 L 113/43 L 137/56 L Pulse Oximetry 100 100 97 Oxygen Delivery Room Air Room Air Room Air 05/19/24 15:25 05/19/24 16:06 Temperature 97.6 F Pulse Rate 80 72 Respiratory Rate 16 20 Blood Pressure 131/65 122/54 L Pulse Oximetry 100 100 Oxygen Delivery Room Air Intake/Output Intake/Output: Intake & Output 05/16/24 05/17/24 05/18/24 05/19/24 23:59 23:59 23:59 23:59 Intake Total 0 Output Total 400 Balance -400 Meds/Results Medications: Active Medications Generic Name Dose Route Start Last Admin Trade Name Freq PRN Reason Stop Dose Admin Albuterol 1 puff 05/19/24 12:19 Albuterol Sulfate (*Sp) Aerosol 1 Puff INHALATION Q4HRT PRN shortness of breath or wheezing Multivitamins/Minerals 1 tablet 05/19/24 12:25 Opti-Gen Tab PO DAILY [facility] Ondansetron HCl 4 mg 05/19/24 09:20 05/19/24 13:10 Ondansetron Inj 4 Mg/2 Ml Vial IV PUSH 4 mg Q4H PRN Administration Nausea Pantoprazole Sodium 40 mg 05/19/24 21:00 Pantoprazole Sodium Iv 40 Mg Vial IV PUSH Q12HR [facility] Penicillin V Potassium 500 mg 05/19/24 21:00 Penicillin V Potassium 250 Mg Tablet PO DAILY [facility] Simvastatin 20 mg 05/19/24 12:25 Simvastatin 20 Mg Tablet PO DAILY [facility] Tramadol HCl 50 mg 05/19/24 12:19 Tramadol Hcl (*Crx) 50 Mg Tablet PO BID PRN severe pain (scale score 7-10) Labs Labs: Laboratory Results - last 24 hr 05/19/24 08:01 WBC 8.3 RBC 3.30 L Hgb 9.9 L D Hct 31.1 L MCV 94.2 MCH 30.0 MCHC 31.8 L RDW 13.4 Plt Count 268 MPV 11.2 H Immature Gran % (Auto) 0.2 Neut % (Auto) 81.3 H Lymph % (Auto) 10.1 L [place] % (Auto) 8.0 Eos % (Auto) 0.2 Baso % (Auto) 0.2 Lymph # (Auto) 0.84 L [place] # (Auto) 0.7 H Eos # (Auto) 0.0 Baso # (Auto) 0.0 Abs Immat Gran (auto) 0.02 Absolute Neuts (auto) 6.7 Absolute Nuc
--- NOTE | 2024-05-19 16:10 | WPDGIPROGNO ---
Subjective Date/time seen: 05/19/24 16:10 Objective Data Vital Signs Vital Signs: Vital Signs - 24 hr 05/19/24 06:39 05/19/24 06:48 05/19/24 07:26 Temperature 98.5 F Pulse Rate 84 84 85 Respiratory Rate 15 Blood Pressure 132/75 126/64 Pulse Oximetry 99 Oxygen Delivery Room Air 05/19/24 07:26 05/19/24 07:26 05/19/24 09:02 Temperature Pulse Rate 90 90 83 Respiratory Rate 16 Blood Pressure 131/64 126/63 147/66 H Pulse Oximetry 100 Oxygen Delivery 05/19/24 06:47 05/19/24 07:01 05/19/24 07:31 Temperature Pulse Rate 84 85 83 Respiratory Rate 14 19 19 Blood Pressure 132/75 131/66 136/64 Pulse Oximetry 100 98 98 Oxygen Delivery 05/19/24 07:46 05/19/24 07:52 05/19/24 08:31 Temperature 98.2 F Pulse Rate 83 84 73 Respiratory Rate 20 16 20 Blood Pressure 126/64 131/64 118/60 Pulse Oximetry 100 98 Oxygen Delivery 05/19/24 10:03 05/19/24 10:39 05/19/24 12:00 Temperature 98.2 F 97.6 F Pulse Rate 75 84 76 Respiratory Rate 16 Blood Pressure 133/68 139/61 Pulse Oximetry 99 99 Oxygen Delivery 05/19/24 13:35 05/19/24 15:05 05/19/24 15:15 Temperature 97.2 F L Pulse Rate 83 75 76 Respiratory Rate 16 20 21 H Blood Pressure 123/59 L 113/43 L 137/56 L Pulse Oximetry 100 100 97 Oxygen Delivery Room Air Room Air Room Air 05/19/24 15:25 05/19/24 16:06 Temperature 97.6 F Pulse Rate 80 72 Respiratory Rate 16 20 Blood Pressure 131/65 122/54 L Pulse Oximetry 100 100 Oxygen Delivery Room Air Intake/Output Intake/Output: Intake & Output 05/16/24 05/17/24 05/18/24 05/19/24 23:59 23:59 23:59 23:59 Intake Total 0 Output Total 400 Balance -400 Meds/Results Medications: Active Medications Generic Name Dose Route Start Last Admin Trade Name Freq PRN Reason Stop Dose Admin Albuterol 1 puff 05/19/24 12:19 Albuterol Sulfate (*Sp) Aerosol 1 Puff INHALATION Q4HRT PRN shortness of breath or wheezing Multivitamins/Minerals 1 tablet 05/19/24 12:25 Opti-Gen Tab PO DAILY [facility] Ondansetron HCl 4 mg 05/19/24 09:20 05/19/24 13:10 Ondansetron Inj 4 Mg/2 Ml Vial IV PUSH 4 mg Q4H PRN Administration Nausea Pantoprazole Sodium 40 mg 05/19/24 21:00 Pantoprazole Sodium Iv 40 Mg Vial IV PUSH Q12HR [facility] Penicillin V Potassium 500 mg 05/19/24 21:00 Penicillin V Potassium 250 Mg Tablet PO DAILY [facility] Simvastatin 20 mg 05/19/24 12:25 Simvastatin 20 Mg Tablet PO DAILY [facility] Tramadol HCl 50 mg 05/19/24 12:19 Tramadol Hcl (*Crx) 50 Mg Tablet PO BID PRN severe pain (scale score 7-10) Labs Labs: Laboratory Results - last 24 hr 05/19/24 08:01 WBC 8.3 RBC 3.30 L Hgb 9.9 L D Hct 31.1 L MCV 94.2 MCH 30.0 MCHC 31.8 L RDW 13.4 Plt Count 268 MPV 11.2 H Immature Gran % (Auto) 0.2 Neut % (Auto) 81.3 H Lymph % (Auto) 10.1 L [place] % (Auto) 8.0 Eos % (Auto) 0.2 Baso % (Auto) 0.2 Lymph # (Auto) 0.84 L [place] # (Auto) 0.7 H Eos # (Auto) 0.0 Baso # (Auto) 0.0 Abs Immat Gran (auto) 0.02 Absolute Neuts (auto) 6.7 Absolute Nucleated RBC 0.000 Nucleated RBC % 0.0 PT 20.8 H INR 1.7 APTT 34.6 Sodium 138 Potassium 4.9 Chloride 108 H Carbon Dioxide 20 L Anion Gap 10 BUN 77 H D Creatinine 1.30 Estim Creat Clear Calc 38 Estimated GFR 52 L Glucose 118 H Calcium 8.6 Iron 89 TIBC 282 % Saturation 32 Total Bilirubin 0.3 AST 20 ALT 18 Alkaline Phosphatase 38 Total Protein 6.0 L Albumin 3.6 Urine Color Yellow Urine Appearance Clear Urine pH 5.0 Ur Specific [place] 1.019 Urine Protein Negative Urine Glucose (UA) Negative Urine Ketones Trace H Ur Blood (Man) Negative Urine Nitrate Negative Urine Bilirubin Negative Urine Urobilinogen 0.2 Leukocyte Esterase Rfl Negative Blood Type A Positive Antibody Screen Negative
--- NOTE | 2024-05-19 16:14 | PC.NURSE ---
This patient, Mian Hartman, was transferred to IMU on 05/19/24 at 1600. Personal belongings sent with patient. Report given to MICK Knott. Appropriate documentation sent with patient.
[2024-05-19 17:16] LABS: Hematocrit 28.9 % (42.0-52.0); Hemoglobin 9.5 g/dL (14.0-18.0)
[2024-05-19 17:38] LABS: Troponin I < 0.012 ng/mL (0.000-0.034)
--- NOTE | 2024-05-19 20:59 | WPDGIPROGNO ---
Subjective Date/time seen: 05/19/24 20:59 Objective Data Vital Signs Vital Signs: Vital Signs - 24 hr 05/19/24 06:39 05/19/24 06:48 05/19/24 07:26 Temperature 98.5 F Pulse Rate 84 84 85 Respiratory Rate 15 Blood Pressure 132/75 126/64 Pulse Oximetry 99 Oxygen Delivery Room Air 05/19/24 07:26 05/19/24 07:26 05/19/24 09:02 Temperature Pulse Rate 90 90 83 Respiratory Rate 16 Blood Pressure 131/64 126/63 147/66 H Pulse Oximetry 100 Oxygen Delivery 05/19/24 06:47 05/19/24 07:01 05/19/24 07:31 Temperature Pulse Rate 84 85 83 Respiratory Rate 14 19 19 Blood Pressure 132/75 131/66 136/64 Pulse Oximetry 100 98 98 Oxygen Delivery 05/19/24 07:46 05/19/24 07:52 05/19/24 08:31 Temperature 98.2 F Pulse Rate 83 84 73 Respiratory Rate 20 16 20 Blood Pressure 126/64 131/64 118/60 Pulse Oximetry 100 98 Oxygen Delivery 05/19/24 10:03 05/19/24 10:39 05/19/24 12:00 Temperature 98.2 F 97.6 F Pulse Rate 75 84 76 Respiratory Rate 16 Blood Pressure 133/68 139/61 Pulse Oximetry 99 99 Oxygen Delivery 05/19/24 13:35 05/19/24 15:05 05/19/24 15:15 Temperature 97.2 F L Pulse Rate 83 75 76 Respiratory Rate 16 20 21 H Blood Pressure 123/59 L 113/43 L 137/56 L Pulse Oximetry 100 100 97 Oxygen Delivery Room Air Room Air Room Air 05/19/24 15:25 05/19/24 16:06 05/19/24 16:00 Temperature 97.6 F Pulse Rate 80 72 81 Respiratory Rate 16 20 Blood Pressure 131/65 122/54 L Pulse Oximetry 100 100 Oxygen Delivery Room Air 05/19/24 17:58 05/19/24 20:14 Temperature 98.4 F Pulse Rate 78 85 Respiratory Rate 20 Blood Pressure 129/60 Pulse Oximetry 100 Oxygen Delivery Intake/Output Intake/Output: Intake & Output 05/16/24 05/17/24 05/18/24 05/19/24 23:59 23:59 23:59 23:59 Intake Total 0 Output Total 400 Balance -400 Meds/Results Medications: Active Medications Generic Name Dose Route Start Last Admin Trade Name Freq PRN Reason Stop Dose Admin Albuterol 1 puff 05/19/24 12:19 Albuterol Sulfate (*Sp) Aerosol 1 Puff INHALATION Q4HRT PRN shortness of breath or wheezing Multivitamins/Minerals 1 tablet 05/19/24 12:25 05/19/24 16:34 Opti-Gen Tab PO Not Given DAILY [facility] Ondansetron HCl 4 mg 05/19/24 09:20 05/19/24 13:10 Ondansetron Inj 4 Mg/2 Ml Vial IV PUSH 4 mg Q4H PRN Administration Nausea Pantoprazole Sodium 40 mg 05/19/24 21:00 05/19/24 20:17 Pantoprazole Sodium Iv 40 Mg Vial IV PUSH 40 mg Q12HR [facility] Administration Simvastatin 20 mg 05/19/24 12:25 05/19/24 16:34 Simvastatin 20 Mg Tablet PO Not Given DAILY [facility] Tramadol HCl 50 mg 05/19/24 12:19 Tramadol Hcl (*Crx) 50 Mg Tablet PO BID PRN severe pain (scale score 7-10) Labs Labs: Laboratory Results - last 24 hr 05/19/24 05/19/24 08:01 17:09 WBC 8.3 RBC 3.30 L Hgb 9.9 L D 9.5 L Hct 31.1 L 28.9 L MCV 94.2 MCH 30.0 MCHC 31.8 L RDW 13.4 Plt Count 268 MPV 11.2 H Immature Gran % (Auto) 0.2 Neut % (Auto) 81.3 H Lymph % (Auto) 10.1 L [place] % (Auto) 8.0 Eos % (Auto) 0.2 Baso % (Auto) 0.2 Lymph # (Auto) 0.84 L [place] # (Auto) 0.7 H Eos # (Auto) 0.0 Baso # (Auto) 0.0 Abs Immat Gran (auto) 0.02 Absolute Neuts (auto) 6.7 Absolute Nucleated RBC 0.000 Nucleated RBC % 0.0 PT 20.8 H INR 1.7 APTT 34.6 Sodium 138 Potassium 4.9 Chloride 108 H Carbon Dioxide 20 L Anion Gap 10 BUN 77 H D Creatinine 1.30 Estim Creat Clear Calc 38 Estimated GFR 52 L Glucose 118 H Calcium 8.6 Iron 89 TIBC 282 % Saturation 32 Total Bilirubin 0.3 AST 20 ALT 18 Alkaline Phosphatase 38 Troponin I < 0.012 Total Protein 6.0 L Albumin 3.6 Urine Color Yellow Urine Appearance Clear Urine pH 5.0 Ur Specific [place] 1.019 Urine Protein Negative Urine Glucose (UA) Negative Urine Ketones Trace H Ur Blood
[2024-05-19 22:50] LABS: Hematocrit 26.3 % (42.0-52.0); Hemoglobin 8.7 g/dL (14.0-18.0)
[2024-05-20] VITALS (16 sets, daily range): BP systolic 110–123; BP diastolic 46–59; PULSE 63–90; RESP 18–20; TEMP 36.7–37.1; O2SAT 97–100
[2024-05-20] MEDS: traMADol HCL (*CRX) 50 MG TABLET PO (00:41)
[2024-05-20 05:34] LABS: Basophils Percent Auto 0.2 % (0.2-1.2); Eosinophils Percent Auto 0.5 % (0-4.4); Hematocrit 26.1 % (42.0-52.0); Hematocrit 26.2 % (42.0-52.0); Hemoglobin 8.3 g/dL (14.0-18.0); Hemoglobin 8.4 g/dL (14.0-18.0); Immature Granulocyte Absolute 0.01 K/mm3 (0.00-0.031); Immature Granulocyte Percent A 0.1 % (0-0.5); Lymphocytes Absolute Auto 1.22 K/mm3 (0.9-3.2); Lymphocytes Percent Auto 13.8 % (18.3-44.2); Mean Corpuscular HGB Conc 31.8 g/dl (32-36); Mean Corpuscular Hemoglobin 29.6 pg (26-34); Mean Corpuscular Volume 93.2 fl (80-100); Mean Platelet Volume 11.2 fl (7.4-10.4); Monocytes Absolute Auto 0.9 K/mm3 (0.1-0.6); Monocytes Percent Auto 9.9 % (2.6-8.5); Neutrophils Absolute Auto 6.7 K/mm3 (1.3-6.7); Neutrophils Percent Auto 75.5 % (45.5-73.1); Platelet Count Result 262 k/mm3 (150-375); Red Cell Distribution Width 13.8 % (11.5-14.5); White Blood Count 8.9 K/mm3 (4.5-10.0)
[2024-05-20 05:42] LABS: Alanine Aminotransferase 16 U/L (6-50); Albumin Level 3.3 g/dL (3.5-5.1); Alkaline Phosphatase 37 U/L (38-126); Anion Gap 7 mmol/L (4-12); Aspartate Amino Transferase 19 U/L (17-59); Bilirubin,Total 0.4 mg/dL (0.2-1.3); Blood Urea Nitrogen 74 mg/dL (9-20); Calcium 8.5 mg/dL (8.4-10.2); Carbon Dioxide 22 mmol/L (22-30); Chloride 111 mmol/L (98-107); Estimated CRCL calculation 36 ml/min; Estimated Glomerular Filt Rate 48; Glucose 112 mg/dL (65-110); Potassium 4.3 mmol/L (3.4-5.0); Sodium 140 mmol/L (137-145)
[2024-05-20] MEDS: OPTI-GEN TAB 1 TABLET PO (07:59)
[2024-05-20] MEDS: PANTOPRAZOLE SODIUM IV 40 MG VIAL IV PUSH ×2 (07:59→20:43)
[2024-05-20] MEDS: SIMVASTATIN 20 MG TABLET PO (07:59)
[2024-05-20 10:16] LABS: Hematocrit 26.3 % (42.0-52.0); Hemoglobin 8.3 g/dL (14.0-18.0)
--- NOTE | 2024-05-20 18:02 | PM.IMPN ---
Progress Note: A&P Assessment and Plan (1) Acute upper GI bleed: Code(s): K92.2 - Gastrointestinal hemorrhage, unspecified Status: Acute Assessment and Plan: Patient reports dizziness and episode of dark black stool. S/P EGD with active bleeding gastric ulcer. Hemoglobin 9.9 g/dl with delta 13.7 g/dl Protonix 40 mg IVP BID Transfuse less than 7.0 g/dl Hold Xarelto. No NSAIDs NPO for 24 hours. Tolerated clear liquids today. Hemoglobin has been stable. Advanced to regular diet. GI consulted, recs appreciated (2) Light-headed: Code(s): R42 - Dizziness and giddiness Status: Acute Assessment and Plan: Likely secondary to 1 Hold blood pressure medications fall precautions PT, OT ? (3) CKD (chronic kidney disease), stage III: Code(s): N18.30 - Chronic kidney disease, stage 3 unspecified Status: Acute Assessment and Plan: Stage III chronic kidney disease Cr 1.30 at baseline renally dose medications avoid nephrotoxic agents Keep MAP greater than 65 mmHg (4) S/P coronary artery stent placement: Code(s): Z95.5 - Presence of coronary angioplasty implant and graft Status: Acute Assessment and Plan: History of CAD with stent. Patient has no chest pain or shortness of breath. EKG in ED showed LBBB, a-flutter rate of 80. No previous EKG to compare. Troponin normal (5) Paroxysmal atrial fibrillation: Code(s): I48.0 - Paroxysmal atrial fibrillation Status: Acute Assessment and Plan: EKG showed a-flutter, rate controlled. Does not appear to be on rate control agent. On Xarelto. Hold Xarelto given active GI bleed Telemetry monitoring Plan Patient did not want to continue his PCN antibiotic. He received a total of 5 days. Subjective Date/time seen: 05/20/24 18:02 Interval history: No acute events overnight. His dizziness has resolved. He is tolerating a clear liquid diet without nausea vomiting or abdominal pain. He has been having bowel movements, still with dark stools. Review of Systems Review of Systems: All systems reviewed & are unremarkable except as noted in HPI and below Exam Narrative: General: appears comfortable, in no acute distress Respiratory: breathing is unlabored with even chest rise/fall, lungs are clear without wheezing, rhonchi, and crackles Cardiovascular: Rate and rhythm irregular, normal s1s2, no murmur Abdomen: Soft, round, non-tender, active bowel sounds Extremities: No cyanosis, edema, clubbing. Pulses 2/2 Neuro: A&O x 4 Skin: Warm, dry, intact. Flushed. Objective Data Vital Signs Vital Signs: Vital Signs - 24 hr 05/19/24 20:14 05/19/24 23:54 05/19/24 20:00 Temperature 98.4 F 97.8 F Pulse Rate 85 77 85 Respiratory Rate 20 20 Blood Pressure 129/60 132/78 Pulse Oximetry 100 100 Oxygen Delivery 05/19/24 22:00 05/20/24 00:00 05/20/24 02:00 Temperature Pulse Rate 86 83 79 Respiratory Rate Blood Pressure Pulse Oximetry Oxygen Delivery 05/20/24 04:34 05/20/24 04:00 05/20/24 05:59 Temperature 98.2 F Pulse Rate 71 68 65 Respiratory Rate 20 Blood Pressure 118/46 L Pulse Oximetry 99 Oxygen Delivery 05/20/24 08:49 05/20/24 08:00 05/20/24 09:40 Temperature 98.0 F Pulse Rate 67 67 71 Respiratory Rate 20 Blood Pressure 120/59 L Pulse Oximetry 100 Oxygen Delivery 05/20/24 09:42 05/20/24 08:00 05/20/24 11:46 Temperature 98.7 F Pulse Rate 83 Respiratory Rate 18 Blood Pressure 110/50 L Pulse Oximetry 97 100 Oxygen Delivery Room Air Room Air 05/20/24 12:00 05/20/24 12:00 05/20/24 13:58 Temperature Pulse Rate 84 74 Respiratory Rate Blood Pressure Pulse Oximetry Oxygen Delivery Room Air 05/20/24 16:00 05/20/24 16:00 Temperature 98.1 F Pulse Rate 76 63 Respiratory Rate 20 Blood Pressure 123/53 L Pulse Oximetry 98 Oxygen Delivery Intake
--- NOTE | 2024-05-20 21:11 | WPDGIPROGNO ---
Subjective Date/time seen: 05/20/24 21:11 Interval history: patient is hemodynamically stable, tolerating oral intake. Residual melena as expected for a significant UGI bleed. Exam Narrative: No changes from baseline Objective Data Vital Signs Vital Signs: Vital Signs - 24 hr 05/19/24 23:54 05/19/24 22:00 05/20/24 00:00 Temperature 97.8 F Pulse Rate 77 86 83 Respiratory Rate 20 Blood Pressure 132/78 Pulse Oximetry 100 Oxygen Delivery 05/20/24 02:00 05/20/24 04:34 05/20/24 04:00 Temperature 98.2 F Pulse Rate 79 71 68 Respiratory Rate 20 Blood Pressure 118/46 L Pulse Oximetry 99 Oxygen Delivery 05/20/24 05:59 05/20/24 08:49 05/20/24 08:00 Temperature 98.0 F Pulse Rate 65 67 67 Respiratory Rate 20 Blood Pressure 120/59 L Pulse Oximetry 100 Oxygen Delivery 05/20/24 09:40 05/20/24 09:42 05/20/24 08:00 Temperature Pulse Rate 71 Respiratory Rate Blood Pressure Pulse Oximetry 97 Oxygen Delivery Room Air Room Air 05/20/24 11:46 05/20/24 12:00 05/20/24 12:00 Temperature 98.7 F Pulse Rate 83 84 Respiratory Rate 18 Blood Pressure 110/50 L Pulse Oximetry 100 Oxygen Delivery Room Air 05/20/24 13:58 05/20/24 16:00 05/20/24 16:00 Temperature 98.1 F Pulse Rate 74 76 63 Respiratory Rate 20 Blood Pressure 123/53 L Pulse Oximetry 98 Oxygen Delivery 05/20/24 19:54 Temperature Pulse Rate 63 Respiratory Rate Blood Pressure Pulse Oximetry Oxygen Delivery Intake/Output Intake/Output: Intake & Output 05/17/24 05/18/24 05/19/24 05/20/24 23:59 23:59 23:59 23:59 Intake Total 0 1120 Output Total 400 200 Balance -400 920 Meds/Results Medications: Active Medications Generic Name Dose Route Start Last Admin Trade Name Freq PRN Reason Stop Dose Admin Albuterol 1 puff 05/19/24 12:19 Albuterol Sulfate (*Sp) Aerosol 1 Puff INHALATION Q4HRT PRN shortness of breath or wheezing Multivitamins/Minerals 1 tablet 05/19/24 12:25 05/20/24 07:59 Opti-Gen Tab PO 1 tablet DAILY [facility] Administration Ondansetron HCl 4 mg 05/19/24 09:20 05/19/24 13:10 Ondansetron Inj 4 Mg/2 Ml Vial IV PUSH 4 mg Q4H PRN Administration Nausea Pantoprazole Sodium 40 mg 05/19/24 21:00 05/20/24 20:43 Pantoprazole Sodium Iv 40 Mg Vial IV PUSH 40 mg Q12HR [facility] Administration Simvastatin 20 mg 05/19/24 12:25 05/20/24 07:59 Simvastatin 20 Mg Tablet PO 20 mg DAILY [facility] Administration Tramadol HCl 50 mg 05/19/24 12:19 05/20/24 00:41 Tramadol Hcl (*Crx) 50 Mg Tablet PO 50 mg BID PRN Administration severe pain (scale score 7-10) Labs Labs: Laboratory Results - last 24 hr 05/19/24 05/20/24 05/20/24 22:41 05:02 05:02 WBC 8.9 RBC 2.80 L Hgb 8.7 L 8.4 L 8.3 L Hct 26.3 L 26.2 L MCV MCH MCHC RDW Plt Count MPV Immature Gran % (Auto) Neut % (Auto) Lymph % (Auto) [place] % (Auto) Eos % (Auto) Baso % (Auto) Lymph # (Auto) [place] # (Auto) Eos # (Auto) Baso # (Auto) Abs Immat Gran (auto) Absolute Neuts (auto) Absolute Nucleated RBC Nucleated RBC % Sodium Potassium Chloride Carbon Dioxide Anion Gap BUN Creatinine Estim Creat Clear Calc Estimated GFR Glucose Calcium Magnesium Total Bilirubin AST ALT Alkaline Phosphatase Total Protein Albumin 05/20/24 05/20/24 05:02 10:06 WBC RBC Hgb 8.3 L Hct 26.1 L 26.3 L MCV 93.2 MCH 29.6 MCHC 31.8 L RDW 13.8 Plt Count 262 MPV 11.2 H Immature Gran % (Auto) 0.1 Neut % (Auto) 75.5 H Lymph % (Auto) 13.8 L [place] % (Auto) 9.9 H Eos % (Auto) 0.5 Baso % (Auto) 0.2 Lymph # (Auto) 1.22 [place] # (Auto) 0.9 H Eos # (Auto) 0.0 Baso # (Auto) 0.0 Abs Immat Gran (auto) 0.01 Absolute Neuts (auto) 6.7 Absolute Nucleated RBC 0.00
--- NOTE | 2024-05-20 21:15 | WPDGIPROGNO ---
Progress Note: A&P Assessment and Plan (1) Melena: Code(s): K92.1 - Melena Status: Acute (2) Acute upper GI bleed: Code(s): K92.2 - Gastrointestinal hemorrhage, unspecified Status: Acute (3) Pyloric channel ulcer: Code(s): K25.9 - Gastric ulcer, unspecified as acute or chronic, without hemorrhage or perforation Status: Acute Plan patient recovering successfully from a pyloric channel ulcer bleeding, status post endoscopic hemostasis with epinephrine + bipolar cautery (gold probe). Currently on Pantoprazole 40 mg IV biD which should continue one more day, it can be switched to 40 mg PO biD tomorrow . Bx for H pylori taken during EGD still pending. Consider IV iron therapy for rapid replacement of iron stores lost during bleeding. Hold Xarelto until day 5 post EGD (notice his INR when he arrived was high, consider consulting cardiology. Will get back to you for anti H pylori regimen if positive. Subjective Date/time seen: 05/20/24 21:15 Interval history: Patient remains hemodynamically stable. Residual melena as expected for UGI bleeding. Objective Data Vital Signs Vital Signs: Vital Signs - 24 hr 05/19/24 23:54 05/19/24 22:00 05/20/24 00:00 Temperature 97.8 F Pulse Rate 77 86 83 Respiratory Rate 20 Blood Pressure 132/78 Pulse Oximetry 100 Oxygen Delivery 05/20/24 02:00 05/20/24 04:34 05/20/24 04:00 Temperature 98.2 F Pulse Rate 79 71 68 Respiratory Rate 20 Blood Pressure 118/46 L Pulse Oximetry 99 Oxygen Delivery 05/20/24 05:59 05/20/24 08:49 05/20/24 08:00 Temperature 98.0 F Pulse Rate 65 67 67 Respiratory Rate 20 Blood Pressure 120/59 L Pulse Oximetry 100 Oxygen Delivery 05/20/24 09:40 05/20/24 09:42 05/20/24 08:00 Temperature Pulse Rate 71 Respiratory Rate Blood Pressure Pulse Oximetry 97 Oxygen Delivery Room Air Room Air 05/20/24 11:46 05/20/24 12:00 05/20/24 12:00 Temperature 98.7 F Pulse Rate 83 84 Respiratory Rate 18 Blood Pressure 110/50 L Pulse Oximetry 100 Oxygen Delivery Room Air 05/20/24 13:58 05/20/24 16:00 05/20/24 16:00 Temperature 98.1 F Pulse Rate 74 76 63 Respiratory Rate 20 Blood Pressure 123/53 L Pulse Oximetry 98 Oxygen Delivery 05/20/24 19:54 Temperature Pulse Rate 63 Respiratory Rate Blood Pressure Pulse Oximetry Oxygen Delivery Intake/Output Intake/Output: Intake & Output 05/17/24 05/18/24 05/19/24 05/20/24 23:59 23:59 23:59 23:59 Intake Total 0 1120 Output Total 400 200 Balance -400 920 Meds/Results Medications: Active Medications Generic Name Dose Route Start Last Admin Trade Name Freq PRN Reason Stop Dose Admin Albuterol 1 puff 05/19/24 12:19 Albuterol Sulfate (*Sp) Aerosol 1 Puff INHALATION Q4HRT PRN shortness of breath or wheezing Multivitamins/Minerals 1 tablet 05/19/24 12:25 05/20/24 07:59 Opti-Gen Tab PO 1 tablet DAILY [facility] Administration Ondansetron HCl 4 mg 05/19/24 09:20 05/19/24 13:10 Ondansetron Inj 4 Mg/2 Ml Vial IV PUSH 4 mg Q4H PRN Administration Nausea Pantoprazole Sodium 40 mg 05/19/24 21:00 05/20/24 20:43 Pantoprazole Sodium Iv 40 Mg Vial IV PUSH 40 mg Q12HR [facility] Administration Simvastatin 20 mg 05/19/24 12:25 05/20/24 07:59 Simvastatin 20 Mg Tablet PO 20 mg DAILY [facility] Administration Tramadol HCl 50 mg 05/19/24 12:19 05/20/24 00:41 Tramadol Hcl (*Crx) 50 Mg Tablet PO 50 mg BID PRN Administration severe pain (scale score 7-10) Labs Labs: Laboratory Results - last 24 hr 05/19/24 05/20/24 05/20/24 22:41 05:02 05:02 WBC 8.9 RBC 2.80 L Hgb 8.7 L 8.4 L 8.3 L Hct 26.3 L 26.2 L MCV MCH MCHC RDW Plt Count MPV Immature Gran % (Auto) Neut % (Auto) Lymph % (Auto) [place] % (Auto) Eos % (Auto) Baso % (Auto) Lymph # (Auto) [place] # (Auto)
[2024-05-21] VITALS (11 sets, daily range): BP systolic 110–141; BP diastolic 47–58; PULSE 53–86; RESP 16–18; TEMP 36.4–36.8; O2SAT 71–100
[2024-05-21 05:23] LABS: Basophils Percent Auto 0.1 % (0.2-1.2); Eosinophils Percent Auto 0.3 % (0-4.4); Hematocrit 24.7 % (42.0-52.0); Immature Granulocyte Absolute 0.05 K/mm3 (0.00-0.031); Immature Granulocyte Percent A 0.6 % (0-0.5); Lymphocytes Absolute Auto 0.67 K/mm3 (0.9-3.2); Lymphocytes Percent Auto 7.4 % (18.3-44.2); Mean Corpuscular HGB Conc 32.4 g/dl (32-36); Mean Corpuscular Hemoglobin 30.5 pg (26-34); Mean Corpuscular Volume 94.3 fl (80-100); Mean Platelet Volume 11.3 fl (7.4-10.4); Monocytes Absolute Auto 0.8 K/mm3 (0.1-0.6); Monocytes Percent Auto 8.8 % (2.6-8.5); Neutrophils Absolute Auto 7.5 K/mm3 (1.3-6.7); Neutrophils Percent Auto 82.8 % (45.5-73.1); Platelet Count Result 261 k/mm3 (150-375); Red Blood Count 2.62 M/mm3 (4.6-6.20); Red Cell Distribution Width 14.2 % (11.5-14.5); White Blood Count 9.1 K/mm3 (4.5-10.0)
[2024-05-21 05:31] LABS: Alanine Aminotransferase 17 U/L (6-50); Albumin Level 3.4 g/dL (3.5-5.1); Alkaline Phosphatase 40 U/L (38-126); Anion Gap 8 mmol/L (4-12); Aspartate Amino Transferase 20 U/L (17-59); Bilirubin,Total 0.5 mg/dL (0.2-1.3); Blood Urea Nitrogen 60 mg/dL (9-20); Calcium 8.7 mg/dL (8.4-10.2); Carbon Dioxide 23 mmol/L (22-30); Chloride 110 mmol/L (98-107); Estimated CRCL calculation 34 ml/min; Estimated Glomerular Filt Rate 44; Glucose 123 mg/dL (65-110); Magnesium 2.1 mg/dL (1.6-2.3); Potassium 4.7 mmol/L (3.4-5.0); Sodium 141 mmol/L (137-145)
[2024-05-21] MEDS: PANTOPRAZOLE SODIUM IV 40 MG VIAL IV PUSH (08:49)
[2024-05-21] MEDS: SIMVASTATIN 20 MG TABLET PO (10:44)
--- NOTE | 2024-05-21 12:18 | PM.IMPN ---
Progress Note: A&P Assessment and Plan (1) Acute upper GI bleed: Code(s): K92.2 - Gastrointestinal hemorrhage, unspecified Status: Acute Assessment and Plan: Patient reports dizziness and episode of dark black stool. S/P EGD with active bleeding gastric ulcer. Hemoglobin 8.0 g/dl with hematocrit 24.7 g/dl Protonix 40 mg BID changed to PO. GI ordered IV Venofer 500 mg ivpb x1. Transfuse less than 7.0 g/dl Hold Xarelto. No NSAIDs Tolerated regular diet today. Hemoglobin has been stable. Advanced to regular diet. GI consulted, recs appreciated Cardiology consulted, recs appreciated. (2) Light-headed: Code(s): R42 - Dizziness and giddiness Status: Acute Assessment and Plan: Likely secondary to 1 Hold blood pressure medications fall precautions PT, OT ? (3) CKD (chronic kidney disease), stage III: Code(s): N18.30 - Chronic kidney disease, stage 3 unspecified Status: Acute Assessment and Plan: Stage III chronic kidney disease Cr 1.30 at baseline, Creatinine 1.50 today. renally dose medications avoid nephrotoxic agents Keep MAP greater than 65 mmHg (4) S/P coronary artery stent placement: Code(s): Z95.5 - Presence of coronary angioplasty implant and graft Status: Acute Assessment and Plan: History of CAD with stent. Patient has no chest pain or shortness of breath. EKG in ED showed LBBB, a-flutter rate of 80. No previous EKG to compare. Troponin normal (5) Paroxysmal atrial fibrillation: Code(s): I48.0 - Paroxysmal atrial fibrillation Status: Acute Assessment and Plan: EKG showed a-flutter, rate controlled. Does not appear to be on rate control agent. On Xarelto. Hold Xarelto given active GI bleed, must hold for 5 days after EGD. Telemetry monitoring Plan Patient did not want to continue his PCN antibiotic. He received a total of 5 days. Subjective Date/time seen: 05/21/24 12:18 Interval history: Patient reports episode of dark stool yesterday evening. Patient reports having nausea with vomiting due to taking in his clear liquids too quickly. Patient reports tolerating a regular diet this morning and eating it slowly. Denies nausea or vomiting at the present. Denies pain. Review of Systems Review of Systems: All systems reviewed & are unremarkable except as noted in HPI and below Exam Const: General: comfortable and no acute distress Eyes: Sclera: sclerae normal Neck: Neck: supple Resp: Effort & Inspection: normal respiratory effort Auscultation: clear to auscultation bilaterally Cardio: Rate: regular rate Rhythm: abnormal rhythm irregularly irregular GI: GI Palp: Yes Soft to palpation Auscultation: normal bowel sounds Skin: General skin exam: no rashes or lesions noted Neuro: Speech: normal speech Other: A&Ox4 Extrem: General: normal to inspection Objective Data Vital Signs Vital Signs: Vital Signs - 24 hr 05/20/24 13:58 05/20/24 16:00 05/20/24 16:00 Temperature 98.1 F Pulse Rate 74 76 63 Respiratory Rate 20 Blood Pressure 123/53 L Pulse Oximetry 98 Oxygen Delivery 05/20/24 19:54 05/20/24 20:00 05/20/24 23:52 Temperature Pulse Rate 63 83 90 Respiratory Rate 20 Blood Pressure Pulse Oximetry 98 Oxygen Delivery Room Air 05/21/24 00:00 05/21/24 03:46 05/21/24 07:49 Temperature 97.6 F 98 F Pulse Rate 84 72 81 Respiratory Rate 18 16 Blood Pressure 141/57 H 133/58 L Pulse Oximetry 100 100 Oxygen Delivery 05/21/24 08:00 05/21/24 08:00 Temperature Pulse Rate 81 Respiratory Rate Blood Pressure Pulse Oximetry Oxygen Delivery Room Air Intake/Output Intake/Output: Intake & Output 05/18/24 05/19/24 05/20/24 05/21/24 23:59 23:59 23:59 23:59 Intake Total 0 1120 660 Output Total 400 200 Balance -400 920 660 Meds/Results Medications: Active Medications Generic Name
--- NOTE | 2024-05-21 14:22 | WPDGIPROGNO ---
Progress Note: A&P Assessment and Plan (1) Pyloric channel ulcer: Code(s): K25.9 - Gastric ulcer, unspecified as acute or chronic, without hemorrhage or perforation Status: Acute (2) Anemia: Code(s): D64.9 - Anemia, unspecified Status: Acute (3) Acute upper GI bleed: Code(s): K92.2 - Gastrointestinal hemorrhage, unspecified Status: Acute Plan The patient had an acute upper GI bleeding from a pyloric channel ulcer 48 hours ago, successfully treated as described in the endoscopy report. We will give him a loading dose of intravenous iron 500 mg x1, will switch pantoprazole to 40 mg p.o. b.i.d. and discontinue intravenous form. We will get a CBC tomorrow morning and if all stable he can be discharged. Xarelto can be resumed in 5 days. Biopsies for H pylori still pending, if positive we will contact patient and prescribed appropriate antibiotics. Time Spent With Patient Time with patient: less than 15 minutes Subjective Date/time seen: 05/21/24 14:22 Interval history: The patient is doing very well, had a residual melena last night, no stool output today. Tolerating food well. No hemodynamic instability. Review of Systems Review of Systems: All systems reviewed & are unremarkable except as noted in HPI and below Objective Data Vital Signs Vital Signs: Vital Signs - 24 hr 05/20/24 16:00 05/20/24 16:00 05/20/24 19:54 Temperature 98.1 F Pulse Rate 76 63 63 Respiratory Rate 20 Blood Pressure 123/53 L Pulse Oximetry 98 Oxygen Delivery 05/20/24 20:00 05/20/24 23:52 05/21/24 00:00 Temperature 97.6 F Pulse Rate 83 90 84 Respiratory Rate 20 18 Blood Pressure 141/57 H Pulse Oximetry 98 100 Oxygen Delivery Room Air 05/21/24 03:46 05/21/24 07:49 05/21/24 08:00 Temperature 98 F Pulse Rate 72 81 81 Respiratory Rate 16 Blood Pressure 133/58 L Pulse Oximetry 100 Oxygen Delivery 05/21/24 08:00 Temperature Pulse Rate Respiratory Rate Blood Pressure Pulse Oximetry Oxygen Delivery Room Air Intake/Output Intake/Output: Intake & Output 05/18/24 05/19/24 05/20/24 05/21/24 23:59 23:59 23:59 23:59 Intake Total 0 1120 660 Output Total 400 200 Balance -400 920 660 Meds/Results Medications: Active Medications Generic Name Dose Route Start Last Admin Trade Name Freq PRN Reason Stop Dose Admin Albuterol 1 puff 05/19/24 12:19 Albuterol Sulfate (*Sp) Aerosol 1 Puff INHALATION Q4HRT PRN shortness of breath or wheezing Iron Sucrose 400 mg/ Iron 275 mls @ 78.571 mls/hr 05/21/24 14:00 Sucrose 100 mg/ Sodium IVPB 05/21/24 17:29 Chloride ONCE ONE Multivitamins/Minerals 1 tablet 05/19/24 12:25 05/21/24 10:47 Opti-Gen Tab PO Not Given DAILY ESTHER Ondansetron HCl 4 mg 05/19/24 09:20 05/19/24 13:10 Ondansetron Inj 4 Mg/2 Ml Vial IV PUSH 4 mg Q4H PRN Administration Nausea Pantoprazole Sodium 40 mg 05/21/24 21:00 Pantoprazole 40 Mg Tablet PO Q12HR ESTHER Simvastatin 20 mg 05/19/24 12:25 05/21/24 10:44 Simvastatin 20 Mg Tablet PO 20 mg DAILY ESTHER Administration Tramadol HCl 50 mg 05/19/24 12:19 05/20/24 00:41 Tramadol Hcl (*Crx) 50 Mg Tablet PO 50 mg BID PRN Administration severe pain (scale score 7-10) Labs Labs: Laboratory Results - last 24 hr 05/21/24 04:39 WBC 9.1 RBC 2.62 L Hgb 8.0 L Hct 24.7 L MCV 94.3 MCH 30.5 MCHC 32.4 RDW 14.2 Plt Count 261 MPV 11.3 H Immature Gran % (Auto) 0.6 H Neut % (Auto) 82.8 H Lymph % (Auto) 7.4 L [place] % (Auto) 8.8 H Eos % (Auto) 0.3 Baso % (Auto) 0.1 L Lymph # (Auto) 0.67 L [place] # (Auto) 0.8 H Eos # (Auto) 0.0 Baso # (Auto) 0.0 Abs Immat Gran (auto) 0.05 H Absolute Neuts (auto) 7.5 H Absolute Nucleated RBC 0.000 Nucleated RBC % 0.0 Sodium 141 Potassium 4.7 Chloride 110 H Carbon Dioxide 23 Anion Gap 8 BUN 60 H D Creatinine 1.50 H Estim Cr
[2024-05-21] MEDS: IRON SUCROSE COMPLEX 400 MG, IRON SUCROSE COMPLEX 100 MG in SODIUM CHLORIDE 0.9% IV 250 ML 78.57 MG IVPB (14:51)
--- NOTE | 2024-05-21 15:33 | PM.CNCAR ---
Assessment and Plan Assessment and plan (1) Atrial fibrillation: Code(s): I48.91 - Unspecified atrial fibrillation Status: Acute (2) Atherosclerotic heart disease of [place] coronary artery without angina pectoris: Code(s): I25.10 - Atherosclerotic heart disease of [place] coronary artery without angina pectoris Status: Acute Plan 1. CAD with remote hx of PCI in 1999 Stable, no angina 2. PAF/Flutter CHADSVASC 4 3. UGI Bleeding - Currently sinus - Will start him on low dose BB; metoprolol 25 mg BID - Xarelto to be restarted after 5 days as per GI recommendations. We consider switching him to Apixaban as an outpatient (depends on his insurance) if there is any recurrence of GI bleed. he has been tolerating Xarleto since the last 7-8 years - Consider starting ASA 81 mg once daily if okay with GI - Will need a repeat CBC a week after restarting anticoagulation - Continue statin at current dose History of Present Illness History of Present Illness Consult date/time: 05/21/24 15:33 Consult reason: atrial fibrillation Reason For Visit: upper gi bleed,anemia,lightheaded Narrative: This is an 83-year-old gentleman with a past medical history significant for CKD stage 3, hypertension, atrial fibrillation on Xarelto, hiatal hernia, osteoarthritis, and CAD with PCI in 1999 who was admitted with UGI bleeding secondary to an ulcer. Cardiology consulted for Afib RVR which happened yesterday. Today he is doing well. No chest pain, dyspnea or dizziness EGD shows a pyloric channel ulcer which was taken care of by GI Not on ASA or Xarelto currently. Review of Systems Review of Systems: All systems reviewed & are unremarkable except as noted in HPI and below [facility] Past Medical History Medical History Atrial fibrillation CAD (coronary artery disease) CKD (chronic kidney disease), stage III Elevated PSA Hearing loss Hiatal hernia Hypertension Surgical History Surgical History History of lumbar surgery S/P coronary artery stent placement S/P small bowel resection Family History Family History Sibling Hypertension Carcinoma of colon Family history of coronary artery disease Mother Cerebrovascular accident Father Cerebral aneurysm Social History Social History (Updated 05/19/24 @ 16:45 by Debby Huerta, WAGNER) Social History: 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 He spent 20 of his years living in [place], [place] before returning to [place]. He has a son, Timothy. He quit drinking alcohol 1 year ago but was never a heavy drinker. He is a former smoker. He denies illicit drug use. Smoking packs per day: 1 Smoking cigarettes per day: 20.0 Years smoked: 30 Smoking pack-years: 30.00 Smoking status: Never smoker Tobacco type: cigarettes Second hand tobacco smoke exposure: No Smoking end date: 08/13/87 Alcohol intake: never Drinks per week: 7 Substance use: never Substance use type: does not use Do You Feel Safe in your Home?: Yes Lack of Transportation: No Lack of Food: Never True Current Housing: I Have Housing Concerned About Future Housing: No Difficulty Paying Gas/Electric Bills: No Difficulty Paying for Meds: No Currently Unemployed: No Education: Master's Degree or Higher Difficulty w/ Childcare or Family Care: No Living arrangements: with family Occupation/Education: retired Gender identity (if verbalized by the patient): Male Spiritual care concerns: No Meds Home Medications and Allergies Home Medications Medication Instructions Recorded Confirmed Type ascorbic acid (vitamin C) 500 mg 500 mg PO DAILY 06/14/19 05/19/24 History tablet (Vitamin C) rivaroxaban 20 mg tablet (Xarelto) 20 mg PO DAILY 06/14/19 05/19/24
[2024-05-21] MEDS: METOPROLOL TARTRATE 25 MG TABLET PO (20:28)
[2024-05-21] MEDS: PANTOPRAZOLE 40 MG TABLET PO (20:29)
[2024-05-22] VITALS (12 sets, daily range): BP systolic 112–128; BP diastolic 51–84; PULSE 56–87; RESP 16; TEMP 36.4–36.8; O2SAT 100
[2024-05-22 05:26] LABS: Basophils Percent Auto 0.3 % (0.2-1.2); Eosinophils Absolute Auto 0.1 K/mm3 (0-0.3); Eosinophils Percent Auto 1.3 % (0-4.4); Hematocrit 23.4 % (42.0-52.0); Hemoglobin 7.4 g/dL (14.0-18.0); Immature Granulocyte Absolute 0.03 K/mm3 (0.00-0.031); Immature Granulocyte Percent A 0.4 % (0-0.5); Lymphocytes Absolute Auto 1.19 K/mm3 (0.9-3.2); Lymphocytes Percent Auto 14.9 % (18.3-44.2); Mean Corpuscular HGB Conc 31.6 g/dl (32-36); Mean Corpuscular Hemoglobin 30.3 pg (26-34); Mean Corpuscular Volume 95.9 fl (80-100); Mean Platelet Volume 11.5 fl (7.4-10.4); Monocytes Absolute Auto 1.2 K/mm3 (0.1-0.6); Monocytes Percent Auto 14.7 % (2.6-8.5); Neutrophils Absolute Auto 5.5 K/mm3 (1.3-6.7); Neutrophils Percent Auto 68.4 % (45.5-73.1); Platelet Count Result 258 k/mm3 (150-375); Red Blood Count 2.44 M/mm3 (4.6-6.20); Red Cell Distribution Width 14.4 % (11.5-14.5)
[2024-05-22 05:39] LABS: Alanine Aminotransferase 19 U/L (6-50); Albumin Level 3.3 g/dL (3.5-5.1); Alkaline Phosphatase 30 U/L (38-126); Anion Gap 6 mmol/L (4-12); Aspartate Amino Transferase 40 U/L (17-59); Bilirubin,Total 0.6 mg/dL (0.2-1.3); Blood Urea Nitrogen 56 mg/dL (9-20); Calcium 8.3 mg/dL (8.4-10.2); Carbon Dioxide 23 mmol/L (22-30); Chloride 112 mmol/L (98-107); Estimated CRCL calculation 38 ml/min; Estimated Glomerular Filt Rate 52; Glucose 104 mg/dL (65-110); Magnesium 2.2 mg/dL (1.6-2.3); Potassium 4.3 mmol/L (3.4-5.0); Sodium 141 mmol/L (137-145)
[2024-05-22] MEDS: OPTI-GEN TAB 1 TABLET PO (09:06)
[2024-05-22] MEDS: SIMVASTATIN 20 MG TABLET PO (09:06)
[2024-05-22] MEDS: PANTOPRAZOLE 40 MG TABLET PO ×2 (09:06→23:09)
[2024-05-22] MEDS: METOPROLOL TARTRATE 25 MG TABLET PO ×2 (09:06→21:03)
--- NOTE | 2024-05-22 10:14 | PC.NURSE ---
Alert and oriented at this time. Sitting up in bed. Denies pain or discomfort. States last BM was 05/21/24, and was a more normal BM, than it had been . Vital signs stable at this time. Discussed plan of care, including medications, and lab results. Verbalizes understanding related to current medications, stating I am familiar with them, although the Metoprolol is a new medication for me. We further discussed Metoprolol and what it is used for and side affects of the medications. Verbalizes understanding and this time and denies questions or concerns. No acute distress noted at this time. Verbalizes an understanding that I am hoping to get discharged home today .
--- NOTE | 2024-05-22 11:18 | PM.PNCARD ---
Progress Note: A&P Assessment and Plan (1) Atrial fibrillation: Code(s): I48.91 - Unspecified atrial fibrillation Status: Acute Plan 83-year-old man with: Chronic atrial fib/flutter. Admitted to the hospital with upper GI bleeding, problematic anemia requiring red cell transfusion. Xarelto has appropriately been discontinued. He is stable from my perspective for discharge. Note from yesterday indicates plan to resume Xarelto in 5 days. I told the patient that is my preference to keep him off of anticoagulation longer than that as his ulcer will not be healed in 5 days. I will see him in the office for follow-up and determine when it is desirable/prudent to resume systemic anticoagulation. Obviously while this is interrupted he does have risk for cardioembolic event however admission with bleeding ulcer requiring red cell transfusion is also not a benign event. I would not recommend aspirin given his ulcer disease and lack of evidence this is beneficial for the AFib Eduardo Villagomez MD [facility] Subjective Date/time seen: Date of service: 05/22/24 11:18 Interval history: Follow-up visit in this 83-year-old man with chronic atrial fib/flutter. Patient entered the hospital with symptomatic anemia, upper GI bleeding related to peptic ulcer disease. Endoscopy demonstrated fresh, deep ulcer with stigmata of recent bleeding. Systemic anticoagulation with Xarelto has obviously been stopped. He feels well this morning and is asymptomatic patient is hopeful of and expecting to be discharged. Exam Const: General: comfortable and no acute distress Other: Pleasant elderly man no distress HENMT: Mouth: Yes moist mucous membranes Eyes: Sclera: sclerae normal Neck: Neck: supple and no JVD Resp: Effort & Inspection: normal respiratory effort Auscultation: clear to auscultation bilaterally Cardio: Rate: regular rate Rhythm: abnormal rhythm irregularly irregular GI: GI Palp: Yes Soft to palpation Auscultation: normal bowel sounds Skin: General skin exam: normal color Neuro: Other: Alert and oriented x3 Extrem: General: normal to inspection Objective Data Vital Signs Vital Signs: Vital Signs - 24 hr 05/21/24 15:33 05/21/24 16:00 05/21/24 19:26 Temperature 36.8 C Pulse Rate 71 78 86 Respiratory Rate 18 Blood Pressure 114/47 L Pulse Oximetry 71 L Oxygen Delivery 05/21/24 19:29 05/21/24 20:28 05/21/24 21:00 Temperature Pulse Rate 86 69 58 L Respiratory Rate 18 Blood Pressure Pulse Oximetry 96 Oxygen Delivery Room Air 05/21/24 23:31 05/22/24 00:00 05/22/24 03:53 Temperature 36.6 C Pulse Rate 53 L 56 L 58 L Respiratory Rate 18 Blood Pressure 110/53 L Pulse Oximetry 99 Oxygen Delivery 05/22/24 07:51 05/22/24 09:06 05/22/24 08:00 Temperature 36.8 C Pulse Rate 79 86 79 Respiratory Rate 16 Blood Pressure 112/84 Pulse Oximetry 100 Oxygen Delivery 05/22/24 08:00 Temperature Pulse Rate 86 Respiratory Rate 16 Blood Pressure Pulse Oximetry 100 Oxygen Delivery Room Air Intake/Output Intake/Output: Intake & Output 05/19/24 05/20/24 05/21/24 05/22/24 23:59 23:59 23:59 23:59 Intake Total 0 1120 1725 570 Output Total 400 200 150 Balance -559 620 0629 420 Meds/Results Medications: Active Medications Generic Name Dose Route Start Last Admin Trade Name Freq PRN Reason Stop Dose Admin Albuterol 1 puff 05/19/24 12:19 Albuterol Sulfate (*Sp) Aerosol 1 Puff INHALATION Q4HRT PRN shortness of breath or wheezing Metoprolol Tartrate 25 mg 05/21/24 21:00 05/22/24 09:06 Metoprolol Tartrate 25 Mg Tablet PO 25 mg Q12HR ESTHER Administration Multivitamins/Minerals 1 tablet 05/19/24 12:25 05/22/24 09:06 Opti-Gen Tab PO 1 tablet DAILY ESTHER Administration Ondansetron HCl 4 mg 05/19/24 09:20 05/19/24 13:10 Ondansetron Inj 4 Mg/2 Ml Vial IV PUSH 4 mg Q4H PRN Admini
--- NOTE | 2024-05-22 11:53 | P.PNIM_ITS ---
Progress Note: A&P Assessment and Plan (1) Acute upper GI bleed: Code(s): K92.2 - Gastrointestinal hemorrhage, unspecified Status: Acute Assessment and Plan: Patient reports dizziness and episode of dark black stool. S/P EGD with active bleeding gastric ulcer. * Hemoglobin 7.4 g/dl with hematocrit 23.4 g/dl * Protonix 40 mg PO BID. * GI ordered IV Venofer 500 mg ivpb x1 yesterday. * Transfuse less than 7.0 g/dl * Hold Xarelto. No NSAIDs * Tolerated regular diet today. * Hemoglobin has been stable. Advanced to regular diet. * GI consulted, recs appreciated * Cardiology consulted, recs appreciated. * Monitor labs. (2) CKD (chronic kidney disease), stage III: Code(s): N18.30 - Chronic kidney disease, stage 3 unspecified Status: Acute Assessment and Plan: Stage III chronic kidney disease * Cr 1.30 at baseline, Creatinine 1.30 today, improved * renally dose medications * avoid nephrotoxic agents * Keep MAP greater than 65 mmHg (3) S/P coronary artery stent placement: Code(s): Z95.5 - Presence of coronary angioplasty implant and graft Status: Acute Assessment and Plan: History of CAD with stent. Patient has no chest pain or shortness of breath. * EKG in ED showed LBBB, a-flutter rate of 80. No previous EKG to compare. * Troponin normal (4) Paroxysmal atrial fibrillation: Code(s): I48.0 - Paroxysmal atrial fibrillation Status: Acute Assessment and Plan: * EKG showed a-flutter, rate controlled. SR- 85 today. * Hold Xarelto given active GI bleed, must hold for 5 days after EGD. * Started on Metoprolol 25 mg PO BID yesterday and tolerating well. * Telemetry monitoring Plan Patient did not want to continue his PCN antibiotic. He received a total of 5 days. Subjective Date/time seen: 05/22/24 11:53 Interval history: Patient denies nausea, vomiting, or shortness of breath. Patient reports tolerating food well. Patient reports a formed dark bowel movement this morning. Review of Systems Review of Systems: All systems reviewed & are unremarkable except as noted in HPI and below Exam Const: General: comfortable and no acute distress Neck: Neck: supple Cardio: Rate: regular rate Rhythm: regular rhythm Other: SR- 85 GI: GI Palp: Yes Soft to palpation Auscultation: normal bowel sounds Skin: General skin exam: no rashes or lesions noted Neuro: Speech: normal speech Other: A&Ox4. Extrem: General: normal to inspection Psych: Affect: normal affect Objective Data Vital Signs Vital Signs: Vital Signs - 24 hr 05/21/24 15:33 05/21/24 16:00 05/21/24 19:26 Temperature 98.3 F Pulse Rate 71 78 86 Respiratory Rate 18 Blood Pressure 114/47 L Pulse Oximetry 71 L Oxygen Delivery 05/21/24 19:29 05/21/24 20:28 05/21/24 21:00 Temperature Pulse Rate 86 69 58 L Respiratory Rate 18 Blood Pressure Pulse Oximetry 96 Oxygen Delivery Room Air 05/21/24 23:31 05/22/24 00:00 05/22/24 03:53 Temperature 97.8 F Pulse Rate 53 L 56 L 58 L Respiratory Rate 18 Blood Pressure 110/53 L Pulse Oximetry 99 Oxygen Delivery
--- NOTE | 2024-05-22 11:53 | PM.IMPN ---
Progress Note: A&P Assessment and Plan (1) Acute upper GI bleed: Code(s): K92.2 - Gastrointestinal hemorrhage, unspecified Status: Acute Assessment and Plan: Patient reports dizziness and episode of dark black stool. S/P EGD with active bleeding gastric ulcer. Hemoglobin 7.4 g/dl with hematocrit 23.4 g/dl Protonix 40 mg PO BID. GI ordered IV Venofer 500 mg ivpb x1 yesterday. Transfuse less than 7.0 g/dl Hold Xarelto. No NSAIDs Tolerated regular diet today. Hemoglobin has been stable. Advanced to regular diet. GI consulted, recs appreciated Cardiology consulted, recs appreciated. Monitor labs. (2) CKD (chronic kidney disease), stage III: Code(s): N18.30 - Chronic kidney disease, stage 3 unspecified Status: Acute Assessment and Plan: Stage III chronic kidney disease Cr 1.30 at baseline, Creatinine 1.30 today, improved renally dose medications avoid nephrotoxic agents Keep MAP greater than 65 mmHg (3) S/P coronary artery stent placement: Code(s): Z95.5 - Presence of coronary angioplasty implant and graft Status: Acute Assessment and Plan: History of CAD with stent. Patient has no chest pain or shortness of breath. EKG in ED showed LBBB, a-flutter rate of 80. No previous EKG to compare. Troponin normal (4) Paroxysmal atrial fibrillation: Code(s): I48.0 - Paroxysmal atrial fibrillation Status: Acute Assessment and Plan: EKG showed a-flutter, rate controlled. SR- 85 today. Hold Xarelto given active GI bleed, must hold for 5 days after EGD. Started on Metoprolol 25 mg PO BID yesterday and tolerating well. Telemetry monitoring Plan Patient did not want to continue his PCN antibiotic. He received a total of 5 days. Subjective Date/time seen: 05/22/24 11:53 Interval history: Patient denies nausea, vomiting, or shortness of breath. Patient reports tolerating food well. Patient reports a formed dark bowel movement this morning. Review of Systems Review of Systems: All systems reviewed & are unremarkable except as noted in HPI and below Exam Const: General: comfortable and no acute distress Neck: Neck: supple Cardio: Rate: regular rate Rhythm: regular rhythm Other: SR- 85 GI: GI Palp: Yes Soft to palpation Auscultation: normal bowel sounds Skin: General skin exam: no rashes or lesions noted Neuro: Speech: normal speech Other: A&Ox4. Extrem: General: normal to inspection Psych: Affect: normal affect Objective Data Vital Signs Vital Signs: Vital Signs - 24 hr 05/21/24 15:33 05/21/24 16:00 05/21/24 19:26 Temperature 98.3 F Pulse Rate 71 78 86 Respiratory Rate 18 Blood Pressure 114/47 L Pulse Oximetry 71 L Oxygen Delivery 05/21/24 19:29 05/21/24 20:28 05/21/24 21:00 Temperature Pulse Rate 86 69 58 L Respiratory Rate 18 Blood Pressure Pulse Oximetry 96 Oxygen Delivery Room Air 05/21/24 23:31 05/22/24 00:00 05/22/24 03:53 Temperature 97.8 F Pulse Rate 53 L 56 L 58 L Respiratory Rate 18 Blood Pressure 110/53 L Pulse Oximetry 99 Oxygen Delivery 05/22/24 07:51 05/22/24 09:06 05/22/24 08:00 Temperature 98.3 F Pulse Rate 79 86 79 Respiratory Rate 16 Blood Pressure 112/84 Pulse Oximetry 100 Oxygen Delivery 05/22/24 08:00 Temperature Pulse Rate 86 Respiratory Rate 16 Blood Pressure Pulse Oximetry 100 Oxygen Delivery Room Air Intake/Output Intake/Output: Intake & Output 05/19/24 05/20/24 05/21/24 05/22/24 23:59 23:59 23:59 23:59 Intake Total 0 1120 1725 570 Output Total 400 200 150 Balance -739 696 6525 420 Meds/Results Medications: Active Medications Generic Name Dose Route Start Last Admin Trade Name Freq PRN Reason Stop Dose Admin Albuterol 1 puff 05/19/24 12:19 Albuterol Sulfate (*Sp) Aerosol 1 Puff INHALATION Q4HRT PRN shortness of breath or wheezing
--- NOTE | 2024-05-22 12:21 | PC.NURSE ---
Updated pt. on plan to stay at least one more night in the hospital related to lab values. Verbalizes understanding at this time and denies further questions or concerns at this time.
[2024-05-23 04:00] VITALS: PULSE 61
[2024-05-23 06:14] LABS: Basophils Percent Auto 0.2 % (0.2-1.2); Eosinophils Absolute Auto 0.1 K/mm3 (0-0.3); Eosinophils Percent Auto 1.2 % (0-4.4); Hematocrit 25.7 % (42.0-52.0); Hemoglobin 8.1 g/dL (14.0-18.0); Immature Granulocyte Absolute 0.05 K/mm3 (0.00-0.031); Immature Granulocyte Percent A 0.4 % (0-0.5); Lymphocytes Absolute Auto 1.51 K/mm3 (0.9-3.2); Lymphocytes Percent Auto 13.4 % (18.3-44.2); Mean Corpuscular HGB Conc 31.5 g/dl (32-36); Mean Corpuscular Hemoglobin 30.3 pg (26-34); Mean Corpuscular Volume 96.3 fl (80-100); Monocytes Absolute Auto 1.3 K/mm3 (0.1-0.6); Monocytes Percent Auto 11.1 % (2.6-8.5); Neutrophils Absolute Auto 8.3 K/mm3 (1.3-6.7); Neutrophils Percent Auto 73.7 % (45.5-73.1); Platelet Count Result 320 k/mm3 (150-375); Red Blood Count 2.67 M/mm3 (4.6-6.20); Red Cell Distribution Width 14.6 % (11.5-14.5); White Blood Count 11.3 K/mm3 (4.5-10.0)
[2024-05-23 06:23] LABS: Alanine Aminotransferase 21 U/L (6-50); Albumin Level 3.8 g/dL (3.5-5.1); Alkaline Phosphatase 43 U/L (38-126); Anion Gap 9 mmol/L (4-12); Aspartate Amino Transferase 24 U/L (17-59); Bilirubin,Total 0.5 mg/dL (0.2-1.3); Blood Urea Nitrogen 47 mg/dL (9-20); Calcium 8.7 mg/dL (8.4-10.2); Carbon Dioxide 25 mmol/L (22-30); Chloride 111 mmol/L (98-107); Estimated CRCL calculation 36 ml/min; Estimated Glomerular Filt Rate 48; Glucose 109 mg/dL (65-110); Magnesium 2.2 mg/dL (1.6-2.3); Potassium 4.3 mmol/L (3.4-5.0); Sodium 145 mmol/L (137-145)
[2024-05-23 08:00] VITALS: BP 144/51; PULSE 85; RESP 18; TEMP 36.5; O2SAT 100
[2024-05-23 08:07] VITALS: PULSE 86
[2024-05-23] MEDS: OPTI-GEN TAB 1 TABLET PO (08:07)
[2024-05-23] MEDS: PANTOPRAZOLE 40 MG TABLET PO (08:07)
[2024-05-23] MEDS: SIMVASTATIN 20 MG TABLET PO (08:07)
[2024-05-23] MEDS: METOPROLOL TARTRATE 25 MG TABLET PO (08:07)
--- NOTE | 2024-05-23 09:22 | PC.NURSE ---
Alert and oriented, sitting up on the side of the bed in good spirits. Discussed plan of care including medications and lab results. Verbalizes understanding related to medications and current lab results. No acute distress noted at t this time. Denies pain or discomfort at this time. classroom monitor remains on and functioning at this time.
--- NOTE | 2024-05-23 11:19 | PM.DS ---
DS: Admitting Diagnosis Discharge Date 05/23/24 Admitting Diagnosis Dizziness DS: Discharge Diagnosis Discharge Diagnosis (1) Pyloric channel ulcer: Code(s): K25.9 - Gastric ulcer, unspecified as acute or chronic, without hemorrhage or perforation Status: Acute (2) Atrial fibrillation: Code(s): I48.91 - Unspecified atrial fibrillation Status: Acute (3) CKD (chronic kidney disease), stage III: Code(s): N18.30 - Chronic kidney disease, stage 3 unspecified Status: Acute DS: Summary Hospital Course Hospital Course: EGD showed active bleeding gastric ulcer. Patient was given IV Protonix 40 mg ivpb q 12. Patient received Venofer 500 mg ivpb x1. Xarelto held. Patient bowel movements returned to normal. Blood counts improving with H&H of 8.09/06.7. Cardiology seen patient and added Metoprolol 25 mg PO BID. Patient will hold Xarelto at discharge then start a baby aspirin tomorrow. Will follow with GI and Cardiology after discharge. Status at Discharge Functional status at discharge: independent ambulation Overall status at discharge: patient is progressing back to baseline Time Spent with Patient Time attestation: Total time spent providing and/or coordinating discharge services: Time spent: Greater than 30 minutes Exam Const: General: comfortable and no acute distress Resp: Effort & Inspection: normal respiratory effort Auscultation: clear to auscultation bilaterally Cardio: Rhythm: abnormal rhythm irregularly irregular Other: Afib 63 GI: GI Palp: Yes Soft to palpation Auscultation: normal bowel sounds Extrem: General: normal to inspection Psych: Affect: normal affect DS: Data Data Completed and Pending Completed studies during hospitalization: Pending at discharge 05/19/24 14:56 Surgical [PTH] Routine Labs on day of discharge: Labs from last 24 hours 05/23/24 05:56 WBC 11.3 H RBC 2.67 L Hgb 8.1 L Hct 25.7 L MCV 96.3 MCH 30.3 MCHC 31.5 L RDW 14.6 H Plt Count 320 MPV 11.0 H Immature Gran % (Auto) 0.4 Neut % (Auto) 73.7 H Lymph % (Auto) 13.4 L Gonzales % (Auto) 11.1 H Eos % (Auto) 1.2 Baso % (Auto) 0.2 Lymph # (Auto) 1.51 Gonzales # (Auto) 1.3 H Eos # (Auto) 0.1 Baso # (Auto) 0.0 Abs Immat Gran (auto) 0.05 H Absolute Neuts (auto) 8.3 H Absolute Nucleated RBC 0.000 Nucleated RBC % 0.0 Sodium 145 Potassium 4.3 Chloride 111 H Carbon Dioxide 25 Anion Gap 9 BUN 47 H Creatinine 1.40 H Estim Creat Clear Calc 36 Estimated GFR 48 L Glucose 109 Calcium 8.7 Magnesium 2.2 Total Bilirubin 0.5 AST 24 ALT 21 Alkaline Phosphatase 43 Total Protein 7.0 Albumin 3.8 Discharge Plan Discharge Attending physician on discharge: Michel Lugo Consulting providers: Marvin Anguiano; Shlomo Burgess Discharging Clinician: Carly Sterling Anticipated Discharge Date/Time: 05/23/24 12:00 Patient Disposition: Home, Self-Care Activity: may shower Diet: heart healthy Discharge Instructions: Please make follow up appointments once discharged. Report to provider any dark stools or vomiting with blood. Take medications as prescribed. CBC in one week. Patient Instructions: Antibiotic Form, Rivaroxaban (By mouth), A-fib (Atrial Fibrillation) (DC), Peptic Ulcer (DC), Upper Endoscopy (DC) Stand Alone Forms: General Discharge Information Follow-up/Referrals: Patrick Gonzalez MD [Primary Care Provider] - 1 Week Eduardo Villagomez MD [Physician] - 1 Week Marvin Anguiano MD [Physician] - 1 Week Discharge Medications: New pantoprazole 40 mg Tablet,Delayed Release (Dr/Ec) 40 mg PO Q12HR Qty: 60 0RF metoprolol tartrate 25 mg Tablet 25 mg PO Q12HR Qty: 60 0RF aspirin [Enteric Coated Aspirin] 81 mg tablet,delayed release (DR/EC) 81 mg PO DAILY Qty: 30 0RF Rx Instructions: start on 05/24/24 Continued finasteride 5 mg tablet
[2024-05-23 12:00] VITALS: BP 126/49; PULSE 66; RESP 24; TEMP 36.6; O2SAT 100
--- NOTE | 2024-05-23 12:06 | PC.NURSE ---
Reviewed all discharge instructions with patient. Highlighted copies provided, including current medication list as well as last dose of medication given. Patient verbalized understanding and denies further questions at this time. Getting dressed and will call when family arrives for ride home.
== END 2024-05-23 12:13 | disposition home or self-care (01) | DRG 378 ==
LOC: ANHED 08:51 → ANH3MEDSUR 10:10 → ANHIMU 15:56
PROVIDERS: Internal Medicine Gastroenterology; Nurse Practitioner; Nurse Practitioner Acute Care; Admitting Provider Internal Medicine; Emergency Provider Emergency Medicine; PCP Family Medicine; Visit Provider Nurse Practitioner Family
PROC: 0DJ08ZZ Inspection of Upper Intestinal Tract, Via Natural or Artificial Opening Endoscopic (ICD-10-PCS; CPT 43235; principal; 2024-05-19 15:00)
DX: K25.0 Acute gastric ulcer with hemorrhage (principal); I48.92 Unspecified atrial flutter; R42 Dizziness and giddiness; I12.9 Hypertensive chronic kidney disease with stage 1 through stage 4 chronic kidney disease, or unspecified chronic kidney disease; N18.30 Chronic kidney disease, stage 3 unspecified; I48.0 Paroxysmal atrial fibrillation; K44.9 Diaphragmatic hernia without obstruction or gangrene; D64.9 Anemia, unspecified; M19.90 Unspecified osteoarthritis, unspecified site; I25.10 Atherosclerotic heart disease of native coronary artery without angina pectoris; Z95.5 Presence of coronary angioplasty implant and graft; Z79.01 Long term (current) use of anticoagulants
CPT/HCPCS: 36415; 80053; 81003; 83540; 83550; 83735; 84484; 85014; 85018; 85025; 85610; 85730; 86850; 86900; 86901; 88305; 93005; 96374; 96375; 99285; A9270; G0378; J0171; J1756; J2003; J2371; J2405; J2470; J2704; J7050; J7120

== ENCOUNTER 2024-05-26 10:18 | Outpatient (CLI) | payer MEDICARE, SELFPAY ==
[2024-05-26 10:45] LABS: Basophils Percent Auto 0.1 % (0.2-1.2); Eosinophils Absolute Auto 0.1 K/mm3 (0-0.3); Hematocrit 24.2 % (42.0-52.0); Hemoglobin 7.8 g/dL (14.0-18.0); Immature Granulocyte Absolute 0.05 K/mm3 (0.00-0.031); Immature Granulocyte Percent A 0.5 % (0-0.5); Lymphocytes Absolute Auto 1.03 K/mm3 (0.9-3.2); Lymphocytes Percent Auto 10.1 % (18.3-44.2); Mean Corpuscular HGB Conc 32.2 g/dl (32-36); Mean Platelet Volume 10.8 fl (7.4-10.4); Monocytes Absolute Auto 1.1 K/mm3 (0.1-0.6); Monocytes Percent Auto 11.1 % (2.6-8.5); Neutrophils Absolute Auto 7.9 K/mm3 (1.3-6.7); Neutrophils Percent Auto 77.2 % (45.5-73.1); Platelet Count Result 318 k/mm3 (150-375); Red Blood Count 2.52 M/mm3 (4.6-6.20); Red Cell Distribution Width 15.2 % (11.5-14.5); White Blood Count 10.2 K/mm3 (4.5-10.0)
== END 2024-05-26 10:19 | disposition home or self-care (01) ==
LOC: ANHLAB 10:24
PROVIDERS: PCP Family Medicine; Visit Provider Nurse Practitioner Family
DX: K25.9 Gastric ulcer, unspecified as acute or chronic, without hemorrhage or perforation (principal)
CPT/HCPCS: 36415; 85025

== ENCOUNTER 2024-06-02 09:00 | Outpatient (CLI) | payer MEDICARE, SELFPAY ==
[2024-06-02 09:30] LABS: Basophils Percent Auto 0.3 % (0.2-1.2); Eosinophils Absolute Auto 0.1 K/mm3 (0-0.3); Eosinophils Percent Auto 1.5 % (0-4.4); Hematocrit 25.7 % (42.0-52.0); Immature Granulocyte Absolute 0.02 K/mm3 (0.00-0.031); Immature Granulocyte Percent A 0.3 % (0-0.5); Lymphocytes Absolute Auto 0.76 K/mm3 (0.9-3.2); Lymphocytes Percent Auto 11.7 % (18.3-44.2); Mean Corpuscular HGB Conc 31.1 g/dl (32-36); Mean Corpuscular Volume 96.3 fl (80-100); Mean Platelet Volume 10.6 fl (7.4-10.4); Monocytes Absolute Auto 0.8 K/mm3 (0.1-0.6); Monocytes Percent Auto 12.1 % (2.6-8.5); Neutrophils Absolute Auto 4.8 K/mm3 (1.3-6.7); Neutrophils Percent Auto 74.1 % (45.5-73.1); Platelet Count Result 382 k/mm3 (150-375); Red Blood Count 2.67 M/mm3 (4.6-6.20); Red Cell Distribution Width 15.3 % (11.5-14.5); White Blood Count 6.5 K/mm3 (4.5-10.0)
== END 2024-06-02 09:01 | disposition home or self-care (01) ==
LOC: ANHLAB 09:04
PROVIDERS: PCP Family Medicine; Visit Provider Physician Assistant Medical
DX: K92.2 Gastrointestinal hemorrhage, unspecified (principal)
CPT/HCPCS: 36415; 85025

== ENCOUNTER 2024-06-23 09:54 | Outpatient (CLI) | payer MEDICARE, SELFPAY ==
[2024-06-23 10:22] LABS: Basophils Percent Auto 0.2 % (0.2-1.2); Eosinophils Absolute Auto 0.2 K/mm3 (0-0.3); Eosinophils Percent Auto 1.8 % (0-4.4); Hematocrit 31.7 % (42.0-52.0); Hemoglobin 9.7 g/dL (14.0-18.0); Immature Granulocyte Absolute 0.02 K/mm3 (0.00-0.031); Immature Granulocyte Percent A 0.2 % (0-0.5); Lymphocytes Absolute Auto 1.27 K/mm3 (0.9-3.2); Lymphocytes Percent Auto 14.3 % (18.3-44.2); Mean Corpuscular HGB Conc 30.6 g/dl (32-36); Mean Corpuscular Volume 94.6 fl (80-100); Mean Platelet Volume 11.1 fl (7.4-10.4); Monocytes Absolute Auto 1.1 K/mm3 (0.1-0.6); Monocytes Percent Auto 12.6 % (2.6-8.5); Neutrophils Absolute Auto 6.3 K/mm3 (1.3-6.7); Neutrophils Percent Auto 70.9 % (45.5-73.1); Platelet Count Result 278 k/mm3 (150-375); Red Blood Count 3.35 M/mm3 (4.6-6.20); Red Cell Distribution Width 14.2 % (11.5-14.5); White Blood Count 8.9 K/mm3 (4.5-10.0)
[2024-06-23 11:43] LABS: Iron 23 ug/dL (49-181)
[2024-06-23 11:52] LABS: Percent Iron Saturation 7 % (20-50)
== END 2024-06-23 09:55 | disposition home or self-care (01) ==
LOC: ANHLAB 09:58
PROVIDERS: PCP Family Medicine; Visit Provider Physician Assistant
DX: K25.9 Gastric ulcer, unspecified as acute or chronic, without hemorrhage or perforation (principal); D64.9 Anemia, unspecified
CPT/HCPCS: 36415; 82728; 83540; 83550; 85025

== ENCOUNTER 2024-07-02 10:21 | Outpatient (CLI) | payer MEDICARE, SELFPAY ==
--- NOTE | 2024-07-02 13:33 | WPDPFTINT ---
PFT Procedure Performed PFT Procedure Performed Spirometry with Pre/Post Bronchodilator Plethysmography (Lung Vol) Diffusing Cap (DLCO) Flow Vol Loop PFT Interpretation This is a pulmonary function test with pre and post-bronchodilator spirometry, plethysmography and diffusing capacity. The test was performed and results interpreted in accordance with the 2019 and 2005 ATS/ERS Task Force guidelines respectively using the Global Lung Function Initiative-2012 reference equations. Patient demonstrated good effort and cooperation. Reproducibility criteria were met. The quality of the pre bronchodilator spirometry maneuver was Grade A and post bronchodilator spirometry maneuver was Grade A. Findings: Spirometry: There is decreased maximal expiratory airflow at all lung volumes with concave expiratory flow tracing. The contour the inspiratory flow tracing is normal. The pre bronchodilator FVC is 3.37 L, 94% predicted. The pre bronchodilator FEV1 is 2.05 L, 78% predicted. The pre bronchodilator FEV1: FVC ratio is 61%. The post bronchodilator FVC is 3.41 L, representing an 1% increase. The post bronchodilator FEV1 is 2.27 L, representing an 11% increase. The post bronchodilator FEV1: FVC ratio 66%. Plethysmography: The total lung capacity is 7.73 L, 113% predicted. The functional residual capacity is 4.57 L, 122% predicted. The residual volume is 4.36 L, 160% predicted. The residual volume: Total lung capacity ratio is 56%. Diffusing capacity: The diffusing capacity unadjusted for hemoglobin and carboxyhemoglobin is 19.2, 82% predicted. The diffusing capacity adjusted for alveolar volume is 3.52, 101% predicted. Impression: There is a mild obstructive abnormality with a normal FEV1. There is no significant improvement after inhaling a single dose of albuterol. The increase in residual volume to total lung volume ratio is consistent with hyperinflation from an obstructive abnormality. The diffusing capacity is normal. There are no prior studies for comparison
== END 2024-07-02 10:22 | disposition home or self-care (01) ==
LOC: ANHPFT 10:23
PROVIDERS: PCP Family Medicine; Visit Provider Physician Assistant
DX: R05.3 Chronic cough (principal); J45.20 Mild intermittent asthma, uncomplicated; J34.2 Deviated nasal septum
CPT/HCPCS: 94060; 94726; 94729

== ENCOUNTER 2024-07-04 10:36 | Outpatient (CLI) | payer MEDICARE, SELFPAY ==
[2024-07-04 11:19] LABS: Basophils Percent Auto 0.2 % (0.2-1.2); Eosinophils Absolute Auto 0.1 K/mm3 (0-0.3); Eosinophils Percent Auto 0.8 % (0-4.4); Hematocrit 32.7 % (42.0-52.0); Hemoglobin 10.2 g/dL (14.0-18.0); Immature Granulocyte Absolute 0.03 K/mm3 (0.00-0.031); Immature Granulocyte Percent A 0.3 % (0-0.5); Lymphocytes Absolute Auto 1.01 K/mm3 (0.9-3.2); Lymphocytes Percent Auto 10.3 % (18.3-44.2); Mean Corpuscular HGB Conc 31.2 g/dl (32-36); Mean Corpuscular Hemoglobin 28.9 pg (26-34); Mean Corpuscular Volume 92.6 fl (80-100); Mean Platelet Volume 11.2 fl (7.4-10.4); Monocytes Absolute Auto 1.1 K/mm3 (0.1-0.6); Monocytes Percent Auto 11.6 % (2.6-8.5); Neutrophils Absolute Auto 7.5 K/mm3 (1.3-6.7); Neutrophils Percent Auto 76.8 % (45.5-73.1); Platelet Count Result 335 k/mm3 (150-375); Red Blood Count 3.53 M/mm3 (4.6-6.20); White Blood Count 9.8 K/mm3 (4.5-10.0)
[2024-07-04 11:32] LABS: Alanine Aminotransferase 16 U/L (6-50); Albumin Level 4.1 g/dL (3.5-5.1); Alkaline Phosphatase 62 U/L (38-126); Amylase 70 U/L (30-110); Anion Gap 8 mmol/L (4-12); Aspartate Amino Transferase 20 U/L (17-59); Bilirubin,Total 1.1 mg/dL (0.2-1.3); Blood Urea Nitrogen 30 mg/dL (9-20); Calcium 9.1 mg/dL (8.4-10.2); Carbon Dioxide 24 mmol/L (22-30); Chloride 107 mmol/L (98-107); Estimated Glomerular Filt Rate 48; Glucose 87 mg/dL (65-110); Lipase 30 U/L (23-300); Potassium 3.9 mmol/L (3.4-5.0); Sodium 139 mmol/L (137-145)
== END 2024-07-04 10:37 | disposition home or self-care (01) ==
LOC: ANHLAB 10:37
PROVIDERS: PCP Family Medicine; Visit Provider Physician Assistant
DX: R19.7 Diarrhea, unspecified (principal); R53.1 Weakness; Z87.19 Personal history of other diseases of the digestive system
CPT/HCPCS: 36415; 80053; 82150; 83690; 85025

== ENCOUNTER 2024-07-16 15:29 | Outpatient (NON) | payer MEDICARE, SELFPAY | END 2024-07-16 15:30 | disposition home or self-care (01) | LOC: ANHLAB 15:30 | PROVIDERS: PCP Family Medicine; Visit Provider Physician Assistant | DX: R19.7 Diarrhea, unspecified (principal) | CPT/HCPCS: 87045; 87177; 87209; 87427; 87449 ==

== ENCOUNTER 2024-09-21 10:25 | Emergency (ER) | payer MEDICARE, SELFPAY ==
[2024-09-21 11:21] VITALS: BP 138/70; PULSE 75; RESP 16; TEMP 36.8; O2SAT 99
--- NOTE | 2024-09-21 11:48 | ED_ITS ---
HPI - General Adult General Chief complaint: Upper Respiratory Infection Stated complaint: FEVER/COUGH/SORE THROAT/CONGESTION/TAKING TAMIFLU Time Seen by Provider: 09/21/24 11:48 Source: patient Mode of arrival: ambulatory Limitations: no limitations History of Present Illness HPI narrative: 84-year-old male patient presents to the [facility] with complaints of sore throat and sputum production with cough. Patient was diagnosed with influenza a 3 days ago was placed on Tamiflu. Patient has not finished his Tamiflu yet but states he was concerned because his sore throat got significantly worse and when he is coughing he now has sputum production. Related Data Home Medications ?Medication ?Instructions ?Recorded ?Confirmed ?Last Taken ?Type ascorbic acid (vitamin C) 500 mg 500 mg PO DAILY 06/14/19 07/04/24 Unknown History tablet (Vitamin C) ltqzzrbhbkqr-ensffzds-wfwskg tablet 1 tablet PO DAILY 05/19/24 07/04/24 Unknown History rivaroxaban 20 mg tablet (Xarelto) 20 mg PO DAILY 07/04/24 07/04/24 Unknown History Allergies Allergy/AdvReac Type Severity Reaction Status Date / Time lincomycin Allergy Intermediate RASH Verified 09/21/24 11:21 Cephalosporins Allergy Unknown Unknown Verified 09/21/24 11:21 Sulfa (Sulfonamide Allergy Unknown Unknown Verified 09/21/24 11:21 Antibiotics) Tetracyclines Allergy Unknown Unknown Verified 09/21/24 11:21 Review of Systems Review of Systems: CONSTITUTIONAL: Denies fever, chills, or sweats. EYES: Denies visual changes, redness, or discharge. ENT: Denies rhinorrhea, congestion, Positive sore throat, denies otalgia. CARDIOVASCULAR: Denies chest pain, palpitations, or edema. RESPIRATORY: positive cough with sputum production, denies dyspnea. GASTROINTESTINAL: Denies abdominal pain, nausea, vomiting, or diarrhea. GENITOURINARY: Denies dysuria or hematuria. SKIN: Denies rash or itching. MUSCULOSKELETAL: Denies back pain, joint pain, or myalgia. NEUROLOGIC: Denies headache, numbness, or weakness. PSYCHIATRIC: Denies anxiety or depression. 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 He spent 20 of his years living in [place], [place] before returning to [place]. He has a son, Timothy. He quit drinking alcohol 1 year ago but was never a heavy drinker. He is a former smoker. He denies illicit drug use. Smoking packs per day: 1 Smoking cigarettes per day: 20.0 Years smoked: 30 Smoking pack-years: 30.00 Smoking status: Never smoker Tobacco type: cigarettes Second hand tobacco smoke exposure: No Smoking end date: 08/13/87 Alcohol intake: never Drinks per week: 7 Substance use: never Substance use type: does not use Do You Feel Safe in your Home?: Yes Lack of Transportation: No Lack of Food: Never True Current Housing: I Have Housing Concerned About Future Housing: No Difficulty Paying Gas/Electric Bills: No Difficulty Paying for Meds: No Currently Unemployed: No Education: Master's Degree or Higher Difficulty w/ Childcare or Family Care: No Living arrangements: with family Occupation/Education: retired Gender identity (if verbalized by the patient): Male Spiritual care concerns: No Comments at the time of my signature I agree with nursing past medical history, surgical, social, and family history. There is no relevant family history pertinent to the presenting complaint. Exam Narrative: GENERAL: Well-appearing, well-nourished, and in no acute distress. HEAD: Normocephalic, atraumatic. EYES: PERRLA and EOMI. ENT: Nares With erythema edema noted bilaterally, no rhinorrhea or epistaxis. Mucous membranes moist. posterior pharynx with no erythema, tonsillar enlargem ent, exudates or lesions present. Bilateral TMs are clear no erythema or foreign bodies the canal. NECK: Supple. No lymphadenopathy CHEST: Clear to auscultation. No respiratory distress. HEART: Regular rate and rhythm. No murmur heard. Normal peripheral pulses. ABDOMEN: Soft, nontender, nondistended, normal active bowel sounds. EXTREMITIES: Normal range of motion. No edema. SKIN: Warm, dry, no rash. NEURO: No focal deficits. Alert and oriented x3. Course Course Level of Care: Express Care Visit Vital Signs Vital signs: Vital Signs Temperature 36.8 C 09/21/24 11:21 Pulse Rate 75 09/21/24 11:21 Respiratory Rate 16 09/21/24 11:21 Blood Pressure 138/70 09/21/24 11:21 Pulse Oximetry 99 09/21/24 11:21 Temperature 36.8 C 09/21/24 11:21 Pulse Rate 75 09/21/24 11:21 Respiratory Rate 16 09/21/24 11:21 Blood Pressure 138/70 09/21/24 11:21 Pulse Oximetry 99 09/21/24 11:21 vital signs reviewed. The patient has been informed that they may have pre-hypertension or Hypertension based on a BP reading in the department. I recommend that the patient call the primary care provider listed on their discharge instructions or a physician of their choice this week to arrange follow up for further evaluation of possible pre-hypertension or Hypertension Medical Decision Making MDM Narrative Medical decision making narrative: Notified patient that we did do a strep swab on him today which was negative. We will send to lab for culture just to be on the safe side but this is most likely symptoms of the influenza a virus. At recommended that he continue taking his Tamiflu as prescribed and he may also want to try some warm salt water gargles, hot tea and honey to help with the sore throat symptoms. Patient can also take Tylenol and Motrin as needed for pain. Patient verbalized understanding denies any other questions or concerns at this time. Differential Diagnosis Differential Diagnosis: Differential diagnosis: Allergic rhinitis, chronic sinusitis, tonsillitis, acute sinusitis, infectious mononucleosis, seasonal influenza, pertussis, diphtheria, meningococcal disease, viral syndrome, viral bronchitis, RSV, COVID- 19 Vital Signs Vital Signs: Vital Signs Temperature 36.8 C 09/21/24 11:21 Pulse Rate 75 09/21/24 11:21 Respiratory Rate 16 09/21/24 11:21 Blood Pressure 138/70 09/21/24 11:21 Pulse Oximetry 99 09/21/24 11:21 Temperature 36.8 C 09/21/24 11:21 Pulse Rate 75 09/21/24 11:21 Respiratory Rate 16 09/21/24 11:21 Blood Pressure 138/70 09/21/24 11:21 Pulse Oximetry 99 09/21/24 11:21 Lab Data Labs: Lab Results 09/21/24 Range/Units 11:51 POC Grp A Strep Screen Negative (Negative) Critical Care Time Critical Care Time Critical Care Time: No Discharge Plan Discharge Clinical Impression: Influenza A Patient Disposition: Home, Self-Care Condition: Stable Instructions: Antibiotic Form, Influenza (ED) Additional Instructions: A sore throat can be caused by an infection from a virus or bacteria. Sore throat can also be caused by postnasal drip, allergies, and exposure to smoke. A viral sore throat last 3-4 days and cannot be treated with antibiotics. One type of sore throat virus, infectious mononucleosis ( mono ), can last for 3 weeks and older children. The germs that cause these infections are contagious and can be spread by coughing or sharing drinks or utensils. Contact her primary care physician or go to the ER if: Your trouble breathing or swallowing because her throat is swollen or sore. You're drooling because it hurts too much to swallow. You're painful lump in your throat go away after 5 days. You're fever is higher than 10 2??F or last longer than 3 days. You have confusion. You are blood in your throat. You're sore throat should feel better within 3-5 days without treatment if it is caused by virus. You may need the following: Ibuprofen or Tylenol as needed for pain or fever Gargle warm salt water Drink more liquids, cold or warm drinks may help soothe her throat. Humidifier in your room. Cough drops, ice, soft foods, or popsicles may help soothe her throat. A spoonful of honey could help with inflammation and soothe her throat. Wash her hands with soap and water, do not share food or drinks, throat away her toothbrush after 72 hours. Patient Language: Indonesian Prescriptions: No Action Xarelto 20 mg tablet 20 mg PO DAILY Rx Instructions: must administer with evening meal pantoprazole 40 mg tablet,delayed release (DR/EC) 40 mg PO QAM Qty: 90 1RF ascorbic acid (vitamin C) [Vitamin C] 500 mg Tablet 500 mg PO DAILY taxllrfaoaaj-griellvq-hqjyjj Tablet 1 tablet PO DAILY albuterol sulfate 90 mcg/actuation HFA aerosol inhaler 1 inh INHALATION Q4H PRN (Reason: shortness of breath or wheezing) Qty: 6.7 2RF silodosin 4 mg capsule See Rx Instructions .ROUTE .COMPLEX Qty: 90 2RF Dose Instruction: TAKE 1 CAPSULE BY MOUTH DAILY Rx Instructions: TAKE 1 CAPSULE BY MOUTH DAILY simvastatin 20 mg tablet 20 mg PO DAILY Qty: 90 2RF metoprolol tartrate 25 mg tablet 25 mg PO Q12HR Qty: 180 1RF ferrous sulfate 325 mg (65 mg iron) tablet,delayed release (DR/EC) 325 mg PO .every other day Qty: 45 1RF irbesartan-hydrochlorothiazide 150-12.5 mg tablet 1 tablet PO DAILY Qty: 90 2RF tramadol 50 mg tablet 50 mg PO BID PRN (Reason: severe pain (scale score 7-10)) Qty: 30 0RF oseltamivir [Tamiflu] 30 mg capsule 30 mg PO BID 5 Days Qty: 10 0RF Follow-up/Referrals: Patrick Gonzalez MD [Primary Care Provider] - Time of Disposition: 11:59
[2024-09-21 11:53] LABS: EDSTREPNEGPOS1 Negative (Negative)
== END 2024-09-21 12:01 | disposition home or self-care (01) ==
PROVIDERS: Emergency Provider Nurse Practitioner Family; PCP Family Medicine
DX: J10.1 Influenza due to other identified influenza virus with other respiratory manifestations (principal); Z20.822 Contact with and (suspected) exposure to COVID-19; I25.10 Atherosclerotic heart disease of native coronary artery without angina pectoris; I48.91 Unspecified atrial fibrillation; I12.9 Hypertensive chronic kidney disease with stage 1 through stage 4 chronic kidney disease, or unspecified chronic kidney disease; N18.30 Chronic kidney disease, stage 3 unspecified; H91.90 Unspecified hearing loss, unspecified ear; K44.9 Diaphragmatic hernia without obstruction or gangrene
CPT/HCPCS: 87081; 87880; 99213; G0463

== ENCOUNTER 2024-10-08 01:08 | Day surgery (SDC) | payer MEDICARE, SELFPAY ==
[2024-09-26 09:55] VITALS: BMI 25.4
--- NOTE | 2024-09-26 10:14 | SUR.PREOP ---
Spoke with patient regarding medication Xarelto. Patient verbalizes understanding that the last dose is to be taken on 10/04/2024 and the Endoscopist will instruct them when to restart after the procedure.
--- OUTSIDE RECORDS SUMMARY | 2024-10-08 01:29 | XMS_ITS | Encounter Summary ---
Author Organization [facility] Address [address] [place] [address] Phone Care Team Providers Care Writer Editor Name Role Phone Patrick Gonzalez MD Primary Care Provider Encounter Details Date Type Department Care Team (Late st Contact Info) Description 09/11/2019 Orders Only [facility] Scanning, Provider Social History Tobacco Use Types Packs/Day Years Used Date Smoking Tobacco: Never Smokeless Tobacco: Never Alcohol Use Standard Drinks/Week Comments Yes 1 (1 standard drink = 0.6 oz pur e alcohol) 3 oz daily Sex and Gender Information Value Date Recorded Sex Assigned at Not on file Legal 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 Gender Identity Male 10/31/2019 10:08 AM CDT Sexual Orientation Not on file documented as of this encounter Plan of Treatment Not on file documented as of this encounter Procedures Procedure Name Priority Date/Time Associated Diagnosis Comments SCAN - LABS 09/11/2019 documented in this encounter Results * SCAN - LABS (09/11/2019) us Provider Scanning Final Result documented in this encounter Visit Diagnoses Not on filedocumented in this encounter Care Teams Writer Editor Relationship Specialty Start Date End Date Patrick Gonzalez MD [address] [place] [address] PCP - General Family Medicine 08/26/18 documented as of this encounter
--- OUTSIDE RECORDS SUMMARY | 2024-10-08 01:29 | XMS_ITS | Clinical Summary ---
Author Organization [facility] [address] Address [address] [place] [address] Care Team Providers Care Deflash And Wash Operator Name Role Phone Patrick Gonzalez MD Primary Care Provider Allergies Active Allergy Reactions Criticality Noted Date Comments Cephalosporins Rash Medium 10/24/2018 Penicillin Other (See comments) Low 06/05/2024 Bleeding ulcer Sulfa (Sulfonamide Antibiotics) Rash Medium 10/24/2018 Medications irbesartan-hydr ochlorothiazide (AVALIDE) 150-12.5 mg per tablet Take 1 tablet by mouth daily 1 07/30/2018 Active simvastatin (ZOCOR) 20 mg tablet 1 tablet (20 mg total) daily 5 09/18/2018 Active multivitamin capsule Take 1 capsule by mouth daily Active ascorbic acid (VITAMIN C) 500 mg tablet,chewable 1 tablet/chew tab (500 mg total) daily Active b complex vitamins capsule Take 1 capsule by mouth daily Active PROAIR HFA 90 mcg/actuation inhaler as needed 09/11/2019 Active traMADol (ULTRAM) 50 mg tablet Take 1 tablet (50 mg total) by mouth every 6 (six) hours as needed for pain Active silodosin (RAPAFLO) 4 mg capsule 1 capsule (4 mg total) Active Xarelto 20 mg tablet TAKE 1 TABLET(20 MG) BY MOUTH DAILY 90 tablet 06/23/[address] (PROTONIX) 40 mg EC tablet TAKE 1 TABLET BY MOUTH EVERY 12 HOURS 180 tablet 1 06/23/2024 Active metoprolol tartrate (LOPRESSOR) 25 mg immediate release tablet TAKE 1 TABLET BY MOUTH EVERY 12 HOURS 180 tablet 1 06/23/2024 Active Active Problems Problem Noted Date Diagnosed Date Chronic atrial fibrillation 10/24/2018 Coronary artery disease invo lving wiyot coronary artery of wiyot heart without angina pectoris 10/24/2018 Encounters Date Type Department Care Team Description 09/26/2024 Telephone [facility] Card[facility] [address] [place] [address] Eduardo Villagomez MD from Last 3 Months Surgical History Surgery Date Site/Laterality Comments CARDIAC STENT PLACEMENT ANGIOPLASTY 12/12/1999 - 01/11/2000 COLON SURGERY 11/11/2018 - 12/10/2018 Medical History Medical History Date Comments Difficulty hearing Cough Irregular heartbeat Joint pain Back pain Hypertension Hyperlipidemia Rosacea Hearing aid worn H/O heart artery stent GERD (gastroesophageal reflux disease) 6 months ago Family History Medical History Relation Name Comments cerebral clot Father Arthritis Mother Jaki Stroke Mother Jaki Relation Name Status Comments Brother Alive 74 and 84 yr ol d brother Father (Age 50) aneurism Mother Jaki (Age 91) stroke Social History Tobacco Use Types Packs/Day Years Used Date Smoking Tobacco: Former Cigarettes 1 956 - 1985 Smokeless Tobacco: Never Tobacco Cessation:Counseling Given: Not Answered Alcohol Use Standard Drinks/Week Comments Yes 2 (1 standard drink = 0.6 oz pur e alcohol) 3 oz daily Personal Safety Answer Date Recorded Getting School Help Needed Not on file 07/24 Sex and Gender Information Value Date Recorded Sex Assigned at Not on file Legal Sex Male 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 Gender Identity Male 10/31/2019 10:08 AM CDT Sexual Orientation Not on file Obstetrics History Last Filed Vital Signs Vital Sign Reading Time Taken Comments Blood Pressure 116/42 06/05/2024 10:04 AM CDT Pulse 69 06/05/2024 10:04 AM CDT Temperature 36.8 C (98.2 F) 09/22/2019 2:30 PM RESIN REMOVER Respiratory Rate - - Oxygen Saturation 99% 06/05/2024 10:04 AM CDT Inhaled Oxygen Concentration - - Weight 83.5 kg (184 lb) 06/05/2024 10:04 AM CDT Height 177.8 cm (5' 10 ) 06/05/2024 10:04 AM CDT Body Mass Index 26.4 06/05/2024 10:04 AM CDT Plan of Treatment Health Maintenance Due Date Last Done Comments Depression Screening 1938 Fall Risk Assessment 1938 DTaP/Tdap/Td Vaccine (1 - Tdap) 1949 Hepatitis B Screening 1956 Pneumococcal vaccine 65+ (1 of 2 - PCV) 1957 Zoster Vaccine (1 of 2) 1988 Well Visit 65+ 2003 Influenza Vaccine (#1) 2024 9, 04/23/2016, 05/17/2015 [place] [address] [facility] MEDICARE [facility] [address] MEDICARE [facility] Care Teams Deflash And Wash Operator Relationship Specialty Start Date End Date Patrick Gonzalez MD [address] [facility] [address] [place] [address] PCP - General Family Medicine 08/26/18
--- OUTSIDE RECORDS SUMMARY | 2024-10-08 01:29 | XMS_ITS | Encounter Summary ---
Author Organization [facility] Address [address] [place] [address] Care Team Providers Care Signal Technician Name Role Phone Unavailable Primary Care Provider Unavailabl e Encounter Details Date Type Department Care Team (Late st Contact Info) Description 03/10/[address] [facility] [address] [facility] [place] [id number] Herve Umanzor MD [address] [place] [address] Social History Tobacco Use Types Packs/Day Years Used Date Smoking Tobacco: Never Assessed Sex and Gender Information Value Date Recorded Sex Assigned at Not on file Gender Identity Not on file Sexual Orientation Not on file documented as of this encounter Plan of Treatment Not on file documented as of this encounter Procedures Procedure Name Priority Date/Time Associated Diagnosis Comments DERMATOPATHOLOGY Routine 03/09/2020 12:0 0 AM CDT documented in this encounter Results * DERMATOPATHOLOGY (03/09/2020 12:00 AM CDT) Case Report Dermatopathology Report Case: [id number] Authorizing Provider: Herve Umanzor MD Collected: 03/09/2020 12:00 AM Ordering Location: [facility] Received: 03/10/2020 01:14 PM Pathologist: Shala Yanez MD Specimens: A) - Skin, right lower medial leg above ankle B) - Skin, left lateral lower leg C) - Skin, midline upper abdomen 0 6:32 PM CDT DERMATOPATHOLOGY LABORATORY Final Diagnosis Specimen A. SKIN, right lower medial leg above ankle: BASAL CELL CARCINOMA, SUPERFICIAL MULTIFOCAL (C44.712) Specimen B. SKIN, left lateral lower leg: BASAL CELL CARCINOMA, SUPERFICIAL MULTIFOCAL (C44.719) Specimen C. SKIN, midline upper abdomen: HEALING SKIN CHANGES (L90.5) CHRONIC PERIFOLLICULITIS (L73.8) (see microscopic description) 0 6:32 PM [facility] DERMAT[facility]OLOGY [facility]ORATORY Clinical History A-B: R/O BCC, ISK, Verde's. C: R/O BCC. 0 6:32 PM [facility] DERMATOPATHOLOGY LABORATORY Gross Description Specimen A: Received is one formalin filled container labeled with the patient's name and designated right lower medial leg above ankle. The specimen consists of a shave biopsy measuring [id number]. Jar 0. Specimen B: Received is one formalin filled container labeled with the patient's name and designated left lateral lower leg. The specimen consists of a shave biopsy measuring [id number]. Jar 0. Specimen C: Received is one formalin filled container labeled with the patient's name and designated midline upper abdomen. The specimen consists of a shave biopsy measuring [id number]. Jar 0. 0 6:32 PM [facility] DERMATOPATHOLOGY LABORATORY Microscopic Description Specimen A. SKIN, right lower medial leg above ankle: Attached to the undersurface of the epidermis, there are small aggregates of basaloid cells with a high nuclear to cytoplasmic ratio and peripheral palisading. Specimen B. SKIN, left lateral lower leg: Attached to the undersurface of the epidermis, there are small aggregates of basaloid cells with a high nuclear to cytoplasmic ratio and peripheral palisading. Specimen C. SKIN, midline upper abdomen: There is epidermal hyperplasia beneath which there are vascular proliferation, fibroblasts, and an edematous stroma. Sections also show a perifollicular lymphohistiocytic infiltrate. There is no evidence of epithelial dysplasia or malignancy in the sections examined. 0 6:32 PM [facility] DERMATOPATHOLOGY LABORATORY Disclaimer An external and internal positive and negative controls are appropriate for the histochemical, immunohistochemical and immunofluorescence stain(s) in this case (if any), except where stated explicitly. The performance characteristics of the stain(s) cited in this report were developed and its performance characteristic determined by the Dermatopathology Laboratory at [facility], directed by Dr. Jermaine Yanez. These tests need not be, and therefore are not, approved by the [place] Food and Drug Administration. The tests are used for clinical purposes. Billing Codes Specimen Charges Stain Charges 14848 50156 67590 1 1 1 0 6:32 PM CDT DERMATOPATHOLOGY LABORATORY Embedded Images 0 6:32 PM CDT DERMATOPATHOLOGY LABORATORY Pathology/Cytology TISSUE SPECIMEN FROM SKIN / Unknown 03/09/2020 03/10/2020 1:14 PM CDT Miscellaneous samples (specimen) TISSUE SPECIMEN FROM SKIN / Unknown 03/09/2020 03/10/2020 1:14 PM CDT Miscellaneous samples (specimen) TISSUE SPECIMEN FROM SKIN / Unknown 03/09/2020 03/10/2020 1:14 PM CDT Herve Umanzor MD LAB - PATHOLOGY/CYTO LOGY ORDERABLES DERMATOPATHOLOGY LABORATORY [facility] - Department of Dermatology Nursing Director Center/[address] [phone] documented in this encounter Visit Diagnoses Not on filedocumented in this encounter
--- OUTSIDE RECORDS SUMMARY | 2024-10-08 01:29 | XMS_ITS | Clinical Summary ---
Author Organization [facility] Address [address] [place] [address] Care Team Providers Care Consumer Marketing Analyst Name Role Phone Unavailable Primary Care Provider Unavailabl e Source Comments [facility],non-owned Affiliates and Associated Physician Practices is amultiple site organization consisting of ambulatory clinics and hospital sitesin [place], [place], [place] and [place]. This disclosure is being madepursuant to the Care Everywhere program and may not contain all information available regarding this patient. Last updated 18.[facility] [employer] Social History Tobacco Use Types Packs/Day Years Used Date Smoking Tobacco: Never Assessed Sex and Gender Information Value Date Recorded Sex Assigned at Not on file Gender Identity Not on file Sexual Orientation Not on file Plan of Treatment Health Maintenance Due Date Last Done Comments MEDICARE AWV 12 MONTHS 1938 DTAP/TDAP/TD VACCINES (1 - Tdap) 1957 PNEUMOCOCCAL VACCINE 50+ (1 of 1 - PCV) 1988 ZOSTER VACCINE (1 of 2) 1988 Respiratory Syncytial Virus (RSV) Vaccine Pt: or over 60 yrs (1 - 1-dose 75+ series) 2013 COVID-19 VACCINE ( - 2023-2 5 season) 2024 INFLUENZA VACCINE (#1) 2024 DEPRESSION SCREENING 08/13/2024 HEPATITIS B VACCINE Aged Out No longe r eligible based on patient's age to complete this topic HIB VACCINE Aged Out No longer eligi ble based on patient's age to complete this topic HPV VACCINE Aged Out No longer eligi ble based on patient's age to complete this topic MENINGOCOCCAL (Group B) VACCINE Aged Out No longer eligible based on patient's age to complete this topic MENINGOCOCCAL VACCINE Aged Out No kinza carmela eligible based on patient's age to complete this topic
--- OUTSIDE RECORDS SUMMARY | 2024-10-08 01:29 | XMS_ITS | Referral Summary ---
Author Organization [facility] [address] Address [address] [place] [address] Care Team Providers Care Manager Commodities Name Role Phone Patrick Gonzalez MD Primary Care Provider Encounters Date Type Department Care Team Description 09/26/[address] 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 Gender Identity Male 10/31/2019 10:08 AM CDT Sexual Orientation Not on file Last Filed Vital Signs Vital Sign Reading Time Taken Comments Blood Pressure 116/42 06/05/2024 10:04 AM CDT Pulse 69 06/05/2024 10:04 AM CDT Temperature 36.8 C (98.2 F) 09/22/2019 2:30 PM PRODUCTION SUPPORT ENGINEER Respiratory Rate - - Oxygen Saturation 99% 06/05/2024 10:04 AM CDT Inhaled Oxygen Concentration - - Weight 83.5 kg (184 lb) 06/05/2024 10:04 AM CDT Height 177.8 cm (5' 10 ) 06/05/2024 10:04 AM CDT Body Mass Index 26.4 06/05/2024 10:04 AM CDT Plan of Treatment Not [place] [address] MEDICARE [facility] MEDICARE [facility] MEDICARE AARP Care Teams Manager Commodities Relationship Specialty Start Date End Date Patrick Gonzalez MD [address] [place] [address] PCP - General Family Medicine 08/26/18
--- OUTSIDE RECORDS SUMMARY | 2024-10-08 01:29 | XMS_ITS | Encounter Summary ---
Author Organization [facility] Address [address] [place] [address] Care Team Providers Care Ripsaw Matcher Name Role Phone Unavailable Primary Care Provider Unavailabl e Encounter Details Date Type Department Care Team (Late st Contact Info) Description 03/31/2020 Lab Requisition [facility] [address] [place] [id number] Herve Umanzor MD [address] [place] [address] Social History Tobacco Use Types Packs/Day Years Used Date Smoking Tobacco: Never Assessed Sex and Gender Information Value Date Recorded Sex Assigned at Not on file Gender Identity Not on file Sexual Orientation Not on file documented as of this encounter Plan of Treatment Not on file documented as of this encounter Procedures Procedure Name Priority Date/Time Associated Diagnosis Comments DERMATOPATHOLOGY Routine 03/30/2020 12:0 0 AM CDT documented in this encounter Results * DERMATOPATHOLOGY (03/30/2020 12:00 AM CDT) Case Report Dermatopathology Report Case: [id number] Authorizing Provider: Herve Umanzor MD Collected: 03/30/2020 12:00 AM Ordering Location: [facility] Received: 03/31/2020 12:38 PM Pathologist: Sri Dawkins MD Specimens: A) - Skin, right medial ankle B) - Skin, left lateral ankle 0 3:28 PM CDT DERMATOPATHOLOGY LABORATORY Final Diagnosis Specimen A. SKIN, right medial ankle: DERMAL SCAR RESIDUAL BASAL CELL CARCINOMA NOT IDENTIFIED (L90.5) Specimen B. SKIN, left lateral ankle: ULCER AND DERMAL SCAR RESIDUAL BASAL CELL CARCINOMA NOT IDENTIFIED (L90.5) (see microscopic description) 0 3:28 PM CDT DERMATOPATHOLOGY LABORATORY Clinical History A-B: BCC - bx proven. Previous Bx: [id number]. 0 3:28 PM CDT DERMATOPATHOLOGY LABORATORY Gross Description Specimen A: Received is one formalin filled container labeled with the patient's name and designated right medial ankle. The specimen consists of a curettage and desiccation biopsy measuring [id number]. Jar 0. Specimen B: Received is one formalin filled container labeled with the patient's name and designated left lateral ankle. The specimen consists of a curettage and desiccation biopsy measuring [id number]. Jar 0. 0 3:28 PM CDT DERMATOPATHOLOGY LABORATORY Microscopic Description Specimen A. SKIN, right medial ankle: There are fibroblasts and collagen bundles oriented parallel to the skin surface. There are elongated blood vessels, some of which are oriented perpendicular to the skin surface. No basal cell carcinoma is identified. Specimen B. SKIN, left lateral ankle: There is an ulcer, beneath which there are vascular proliferation, fibroblasts, and an edematous stroma, consistent with prior biopsy site. There are fibroblasts and collagen bundles oriented parallel to the skin surface. There are elongated blood vessels, some of which are oriented perpendicular to the skin surface. No basal cell carcinoma is identified. 0 3:28 PM CDT DERMATOPATHOLOGY LABORATORY Disclaimer An external and internal positive and negative controls are appropriate for the histochemical, immunohistochemical and immunofluorescence stain(s) in this case (if any), except where stated explicitly. The performance characteristics of the stain(s) cited in this report were developed and its performance characteristic determined by the Dermatopathology Laboratory at [facility], directed by Dr. Jermaine Yanez. These tests need not be, and therefore are not, approved by the [place] Food and Drug Administration. The tests are used for clinical purposes. Billing Codes Specimen Charges Stain Charges 33293 22398 1 1 0 3:28 PM CDT DERMATOPATHOLOGY LABORATORY Embedded Images 0 3:28 PM CDT DERMATOPATHOLOGY LABORATORY Pathology/Cytology TISSUE SPECIMEN FROM SKIN / Unknown 03/30/2020 03/31/2020 12:38 PM CDT Miscellaneous samples (specimen) TISSUE SPECIMEN FROM SKIN / Unknown 03/30/2020 03/31/2020 12:38 PM CDT Herve Umanzor MD LAB - PATHOLOGY/CYTO LOGY ORDERABLES Performing Organization Address City/State/[facility] Co de Phone Number DERMATOPATHOLOGY LABORATORY [facility] - Department of Dermatology Pharmaceutical Representative Center/[address] [phone] documented in this encounter Visit Diagnoses Not on filedocumented in this encounter
--- OUTSIDE RECORDS SUMMARY | 2024-10-08 01:29 | XMS_ITS | Patient Health Summary ---
Author Organization [facility] Address [address] [place] [address] Care Team Providers Care Fishery Division Chief Name Role Phone Unavailable Primary Care Provider Unavailabl e Note from [facility],non-owned Affiliates and Associated Physician Practices is amultiple site organization consisting of ambulatory clinics and hospital sitesin [place], [place], [place] and [place]. This disclosure is being madepursuant to the Care Everywhere program and may not contain all information available regarding this patient. Last updated 18.[facility] Social History Tobacco Use Types Packs/Day Years Used Date Smoking Tobacco: Never Assessed Sex and Gender Information Value Date Recorded Sex Assigned at Not on file Gender Identity Not on file Sexual Orientation Not on file Procedures * DERMATOPATHOLOGY(Performed 05/10/2021) * DERMATOPATHOLOGY(Performed 03/30/2020) * DERMATOPATHOLOGY(Performed 03/09/2020) * DERMATOPATHOLOGY(Performed 03/07/2017) Results * DERMATOPATHOLOGY (05/10/2021 12:00 AM CDT) Only the most recent of4 resultswithin the time period is included. Case Report Dermatopathology Report Case: [id number] Authorizing Provider: Herve Umanzor MD Collected: 05/10/2021 12:00 AM Ordering Location: [facility] Received: 05/11/2021 01:50 PM Pathologist: Sri Dawkins MD Specimen: Skin, post vertex scalp midline 3:56 PM CDT DERMATOPATHOLOGY LABORATORY Final Diagnosis Specimen A. SKIN, post vertex scalp midline: ACTINIC KERATOSIS, PIGMENTED (L57.0) PRESENT AT MARGIN (see microscopic description and comment) 3:56 PM CDT DERMATOPATHOLOGY LABORATORY Clinical History R/O dys nevus vs lentigo. Check margins. 3:56 PM [facility] DERMATOPATHOLOGY LABORATORY Gross Description Specimen A: Received is one formalin filled container labeled with the patients name and designated post vertex scalp midline. The specimen consists of a shave removal measuring [id number]. The margin is inked green. Jar 0. 3:56 PM [facility] DERMATOPATHOLOGY LABORATORY Microscopic Description Specimen A. SKIN, post vertex scalp midline: There is hyperkeratosis. Along the undersurface of the epidermis, there are buds of atypical keratinocytes in a disorderly arrangement. There is prominent pigmentation in some of the keratinocytes. MART-1/Melan-A staining highlights regular periodicity of melanocytes along the dermoepidermal junction. In addition, there are rare MART-1/Vgfsw-O-pjms tive cells in the superficial dermis that are not appreciated on routine sections. This lesion is present at the margin of the specimen. COMMENT: The dermal MART-1/Melan-A positive cells have been termed MART-1/Melan-A positive cells of undetermined significance and are thought to represent either non-specific staining with MART-1/Melan-A or benign, reactive dermal melanocytes. References: 1. Magdalena ME, Roxane R, Monse J. Melan-A positive dermal cells in malignant melanoma in situ. Journal of Cutaneous Pathology 2015;42: 388-393. 2. Tate Ma, Geraldine BARROW, Roberth ZARAGOZA. Melanocytes in long-standing sun-exposed skin: quantitative analysis using the MART-1 immunostain. Archives of Dermatology 2006;142(7):871-6. 3:56 PM [facility] DERMATOPATHOLOGY LABORATORY Disclaimer An external and internal positive and negative controls are appropriate for the histochemical, immunohistochemical and immunofluorescence stain(s) in this case (if any), except where stated explicitly. The performance characteristics of the stain(s) cited in this report were developed and its performance characteristic determined by the Dermatopathology Laboratory at [facility], directed by Dr. Jermaine Yanez. These tests need not be, and therefore are not, approved by the [place] Food and Drug Administration. The tests are used for clinical purposes. Billing Codes Specimen Charges Stain Charges 06675 1 [id number] 1 3:56 PM CDT DERMATOPATHOLOGY LABORATORY Embedded Images 3:56 PM CDT DERMATOPATHOLOGY LABORATORY Pathology/Cytolog y TISSUE SPECIMEN FROM SKIN / Unknown 05/10/2021 05/11/2021 1:50 PM CDT eHrve Umanzor MD LAB - PATHOLOGY/CYTO LOGY ORDERABLES DERMATOPATHOLOGY LABORATORY [facility] - Department of Dermatology [facility] [address] [place] [address], [address] [phone]
--- OUTSIDE RECORDS SUMMARY | 2024-10-08 01:29 | XMS_ITS | Encounter Summary ---
Author Organization [facility] Address [address] [place] [address] Phone Care Team Providers Care Pipe Threader Name Role Phone Patrick Gonzalez MD Primary Care Provider Encounter Details Date Type Department Care Team (Late st Contact Info) Description 09/25/2019 Orders Only [facility] Scanning, Provider Social History Tobacco Use Types Packs/Day Years Used Date Smoking Tobacco: Former Cigarettes 1 956 - 1985 Smokeless Tobacco: Never Alcohol Use Standard Drinks/Week Comments Yes 1 (1 standard drink = 0.6 oz pur e alcohol) 3 oz daily Sex and Gender Information Value Date Recorded Sex Assigned at Not on file Legal Sex Male 1:31 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 Gender Identity Male 10/31/2019 10:08 AM CDT Sexual Orientation Not on file documented as of this encounter Plan of Treatment Not on file documented as of this encounter Procedures Procedure Name Priority Date/Time Associated Diagnosis Comments SCAN - LABS 09/25/2019 documented in this encounter Results * SCAN - LABS (09/25/2019) us Provider Scanning Final Result documented in this encounter Visit Diagnoses Not on filedocumented in this encounter Care Teams Pipe Threader Relationship Specialty Start Date End Date Patrick Gonzalez MD [address] [place] [address] PCP - General Family Medicine 08/26/18 documented as of this encounter
--- OUTSIDE RECORDS SUMMARY | 2024-10-08 01:29 | XMS_ITS | Encounter Summary ---
Author Organization [facility] Address [address] [place] [address] Care Team Providers Care Garnishment Specialist Name Role Phone Patrick Gonzalez MD Primary Care Provider Encounter Details Date Type Department Care Team (Late st Contact Info) Description 09/26/2024 Telephone [facility] Cardiology [address] [facility] [facility] [address] [facility] [address] [place] [address] Eduardo Villagomez MD [address] [facility] [address] [place] [address] Social History Tobacco Use Types Packs/Day Years Used Date Smoking Tobacco: Former Cigarettes 956 1985 Smokeless Tobacco: Never Alcohol Use Standard Drinks/Week Comments Yes 2 (1 standard drink = 0.6 oz pur e alcohol) 3 oz daily Personal Safety Answer Date Recorded Getting School Help Needed Not on file 07/24 Sex and Gender Information Value Date Recorded Sex Assigned at Not on file 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 His last dosewill be 10/04. Contact: E HEATER documented in this encounter Plan of Treatment Not on file documented as of this encounter Visit Diagnoses Not on filedocumented in this encounter Care Teams Garnishment Specialist Relationship Specialty Start Date End Date Patrick Gonzalez MD [address] [facility] [address] [place] [address] PCP - General Family Medicine 08/26/18 documented as of this encounter
--- OUTSIDE RECORDS SUMMARY | 2024-10-08 01:29 | XMS_ITS | Encounter Summary ---
Author Organization [facility] Address [address] [place] [address] Care Team Providers Care Sociology Adjunct Instructor Name Role Phone Unavailable Primary Care Provider Unavailabl e Encounter Details Date Type Department Care Team (Late st Contact Info) Description 05/11/2021 Lab Requisition [facility] DermPath Lab [address] [facility] [place] [address] Herve Umanzor MD [address] [place] [address] Social History Tobacco Use Types Packs/Day Years Used Date Smoking Tobacco: Never Assessed Sex and Gender Information Value Date Recorded Sex Assigned at Not on file Gender Identity Not on file Sexual Orientation Not on file documented as of this encounter Plan of Treatment Not on file documented as of this encounter Procedures Procedure Name Priority Date/Time Associated Diagnosis Comments DERMATOPATHOLOGY Routine 05/10/2021 12:0 0 AM CDT documented in this encounter Results * DERMATOPATHOLOGY (05/10/2021 12:00 AM CDT) Case Report Dermatopathology Report Case: [id number] Authorizing Provider: Herve Umanzor MD Collected: 05/10/2021 12:00 AM Ordering Location: [facility] DermPath Lab Received: 05/11/2021 01:50 PM Pathologist: Sri Dawkins MD Specimen: Skin, post vertex scalp midline 3:56 PM CDT DERMATOPATHOLOGY LABORATORY Final Diagnosis Specimen A. SKIN, post vertex scalp midline: ACTINIC KERATOSIS, PIGMENTED (L57.0) PRESENT AT MARGIN (see microscopic description and comment) 3:56 PM CDT DERMATOPATHOLOGY LABORATORY Clinical History R/O dys nevus vs lentigo. Check margins. 3:56 PM [facility] DERMATOPATHOLOGY LABORATORY Gross Description Specimen A: Received is one formalin filled container labeled with the patients name and designated post vertex scalp midline. The specimen consists of a shave removal measuring [id number]. The margin is inked green. Jar 0. 3:56 PM [facility] DERMATOPATHOLOGY LABORATORY Microscopic Description Specimen A. SKIN, post vertex scalp midline: There is hyperkeratosis. Along the undersurface of the epidermis, there are buds of atypical keratinocytes in a disorderly arrangement. There is prominent pigmentation in some of the keratinocytes. MART-1/Melan-A staining highlights regular periodicity of melanocytes along the dermoepidermal junction. In addition, there are rare MART-1/Nuuvu-Y-wncs tive cells in the superficial dermis that [...] immunostain. Archives of Dermatology 2006;142(7):871-6. 3:56 PM T DERMATOPATHOLOGY LABORATORY Disclaimer An external and internal positive and negative controls are appropriate for the histochemical, immunohistochemical and immunofluorescence stain(s) in this case (if any), except where stated explicitly. The performance characteristics of the stain(s) cited in this report were developed and its performance characteristic determined by the Dermatopathology Laboratory at [facility], directed by Dr. Jermaine Yanez. These tests need not be, and therefore are not, approved by the [place] Food and Drug Administration. The tests are used for clinical purposes. Billing Codes Specimen Charges Stain Charges 73984 1 29809 1 3:56 PM CDT DERMATOPATHOLOGY LABORATORY Embedded Images 3:56 PM CDT DERMATOPATHOLOGY LABORATORY Pathology/Cytolog y TISSUE SPECIMEN FROM SKIN / Unknown 05/10/2021 05/11/2021 1:50 PM CDT Herve Umanzor MD LAB - PATHOLOGY/CYTO LOGY ORDERABLES DERMATOPATHOLOGY LABORATORY [facility] - Department of Dermatology [facility] Medicine [address] [place] [address], [address] [phone] documented in this encounter Visit Diagnoses Not on filedocumented in this encounter
--- OUTSIDE RECORDS SUMMARY | 2024-10-08 01:29 | XMS_ITS | Referral Summary ---
Author Organization [facility] Address [address] [place] [address] Care Team Providers Care Electrical Equipment Assembler Name Role Phone Unavailable Primary Care Provider Unavailabl e Source Comments [facility],non-owned Affiliates and Associated Physician Practices is amultiple site organization consisting of ambulatory clinics and hospital sitesin [place], [place], [place] and [place]. This disclosure is being madepursuant to the Care Everywhere program and may not contain all information available regarding this patient. Last updated 18.[facility] Social History Tobacco Use Types Packs/Day Years Used Date Smoking Tobacco: Never Assessed Sex and Gender Information Value Date Recorded Sex Assigned at Not on file Gender Identity Not on file Sexual Orientation Not on file Plan of Treatment [place] [address] [address] Mian Hartman Personal/Family Self [address] [place] [address] [place] [address]
[2024-10-08 08:14] VITALS: BP 153/71; PULSE 69; RESP 16; TEMP 35.9; O2SAT 100; BMI 25.6
[2024-10-08] MEDS: LACTATED RINGERS 1,000 ML 150 ML IV CONT (08:26)
--- NOTE | 2024-10-08 08:50 | P.PNAN_ITS ---
Anes - Initial Pre Proc Eval Procedure: Operation Date: 10/08/24 09:30 Proposed Procedures p Esophagogastroduodenoscopy - Arsh Kamara MD Date/Time: 10/08/24 08:50 Surgeon: Arsh Kamara MD Pre Op Diagnosis: Gastric ulcer Patient Data Age: 84 Gender: M Height: 1.78 m Weight: 81.1 kg Last Vital Signs Temp 96.7 F L 10/08/24 08:14 Pulse 69 10/08/24 08:14 Resp 16 10/08/24 08:14 BP 153/71 H 10/08/24 08:14 Pulse Ox 100 10/08/24 08:14 O2 Del Method Room Air 10/08/24 08:14 Allergies Allergy/AdvReac Type Severity Reaction Status Date / Time lincomycin Allergy Intermediate RASH Verified 10/08/24 08:13 Cephalosporins Allergy Unknown Unknown Verified 10/08/24 08:13 Sulfa (Sulfonamide Allergy Unknown Unknown Verified 10/08/24 08:13 Antibiotics) Tetracyclines Allergy Unknown Unknown Verified 10/08/24 08:13 Home Medications ?Medication ?Instructions ?Recorded ?Confirmed ?Type ascorbic acid (vitamin C) 500 mg 500 mg PO DAILY 06/14/19 10/08/24 History tablet (Vitamin C) albuterol sulfate 90 mcg/actuation 1 inh inhalation Q4H PRN shortness 03/28/23 10/08/24 Rx aerosol inhaler of breath or wheezing #6.7 grams silodosin 4 mg capsule See Rx Instructions .Route 03/31/24 10/08/24 Rx .COMPLEX #90 caps simvastatin 20 mg tablet 20 mg PO DAILY #90 tabs 05/09/24 10/08/24 Rx wxtjdvagwtpf-nsjiiwkr-sshojv tablet 1 tablet PO DAILY 05/19/24 09/26/24 History metoprolol tartrate 25 mg tablet 25 mg PO Q12HR #180 tabs 06/23/24 10/08/24 Rx pantoprazole 40 mg tablet,delayed 40 mg PO QAM #90 tabs 06/23/24 10/08/24 Rx release rivaroxaban 20 mg tablet (Xarelto) 20 mg PO DAILY 07/04/24 10/08/24 History irbesartan 150 1 tablet PO DAILY #90 tabs 08/12/24 10/08/24 Rx mg-hydrochlorothiazide 12.5 mg tablet tramadol 50 mg tablet 50 mg PO BID PRN severe pain 08/20/24 09/26/24 Rx (scale score 7-10) #30 tabs fluticasone fur. 100 mcg-umeclid 1 inh inhalation DAILY #28 ea 09/23/24 10/08/24 Rx 62.5 mcg-vilant 25 mcg inhalat.powder (Trelegy Ellipta) Patient hx anesthesia problems: none Family hx anesthesia problems: none Results Review: All pre-operative results and documents have been reviewed as part of the pre- operative evaluation. 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 He spent 20 of his years living in [place], [place] before returning to [place]. He has a son, Timothy. He quit drinking alcohol 1 year ago but was never a heavy drinker. He is a former smoker. He denies illicit drug use. Smoking packs per day: 1 Smoking cigarettes per day: 20.0 Years smoked: 30 Smoking pack-years: 30.00 Smoking status: Never smoker Tobacco type: cigarettes Second hand tobacco smoke exposure: No Smoking end date: 08/13/87 Alcohol intake: never Drinks per week: 7 Substance use: never Substance use type: does not use Do You Feel Safe in your Home?: Yes Lack of Transportation: No Lack of Food: Never True Current Housing: I Have Housing Concerned About Future Housing: No Difficulty Paying Gas/Electric Bills: No Difficulty Paying for Meds: No Currently Unemployed: No Education: Master's Degree or Higher Difficulty w/ Childcare or Family Care: No Living arrangements: with family Occupation/Education: retired Gender identity (if verbalized by the patient): Male Spiritual care concerns: No Anes - Eval Final PreProcedure Day of Procedure 10/08/24 08:50 Patient weight: normal Lungs: normal air movement Airway: Mallampati scale class II Neurological: alert and oriented Last oral intake: >/= 8 hours ASA classification: III Emergent: no Anesthetic plan: proceed Anesthesia type and monitoring: general GIVS and standard monitoring Results Review: All pre-operative results and documents have been reviewed as part of the pre- operative evaluation. HTN, hyperlipidemia, GILMA mild, afib AC on hold, hx of bleeding ulcer, now for reeval. Informed Consent: The patient's anesthetic plan and its attendant risks and benefits were discussed with the patient/family/POA. Questions were solicited and answers provided to the satisfaction of the patient/family/POA.
--- NOTE | 2024-10-08 09:36 | P.HP_ITS ---
H&P: HPI History of Present Illness Date/Time: 10/08/24 09:36 Chief Complaint: History of peptic ulcer. Narrative: The patient was admitted in May for an upper GI bleed. A pyloric channel ulcer with active bleeding was found and successfully treated with injection of epinephrine and gold probe application. He has been doing well, and is here today for a follow-up EGD to document ulcer healing. Review of Systems Review of Systems: All systems reviewed & are unremarkable except as noted in HPI and below PMFSH Past Medical History Medical History CAD (coronary artery disease) Hiatal hernia Atrial fibrillation Elevated PSA CKD (chronic kidney disease), stage III Hearing loss Hypertension Surgical History Surgical History S/P coronary artery stent placement History of lumbar surgery S/P small bowel resection Family History Family History Sibling Hypertension Carcinoma of colon Family history of coronary artery disease Mother Cerebrovascular accident Father Cerebral aneurysm Social History Social History Social History: 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 He spent 20 of his years living in [place], [place] before returning to [place]. He has a son, Timothy. He quit drinking alcohol 1 year ago but was never a heavy drinker. He is a former smoker. He denies illicit drug use. Smoking packs per day: 1 Smoking cigarettes per day: 20.0 Years smoked: 30 Smoking pack-years: 30.00 Smoking status: Never smoker Tobacco type: cigarettes Second hand tobacco smoke exposure: No Smoking end date: 08/13/87 Alcohol intake: never Drinks per week: 7 Substance use: never Substance use type: does not use Do You Feel Safe in your Home?: Yes Lack of Transportation: No Lack of Food: Never True Current Housing: I Have Housing Concerned About Future Housing: No Difficulty Paying Gas/Electric Bills: No Difficulty Paying for Meds: No Currently Unemployed: No Education: Master's Degree or Higher Difficulty w/ Childcare or Family Care: No Living arrangements: with family Occupation/Education: retired Gender identity (if verbalized by the patient): Male Spiritual care concerns: No Meds Home Medications and Allergies Home Medications ?Medication ?Instructions ?Recorded ?Confirmed ?Type ascorbic acid (vitamin C) 500 mg 500 mg PO DAILY 06/14/19 10/08/24 History tablet (Vitamin C) albuterol sulfate 90 mcg/actuation 1 inh inhalation Q4H PRN shortness 03/28/23 10/08/24 Rx aerosol inhaler of breath or wheezing #6.7 grams silodosin 4 mg capsule See Rx Instructions .Route 03/31/24 10/08/24 Rx .COMPLEX #90 caps simvastatin 20 mg tablet 20 mg PO DAILY #90 tabs 05/09/24 10/08/24 Rx vrmtrkdbiyqn-jnfdyzhb-isanbc tablet 1 tablet PO DAILY 05/19/24 09/26/24 History metoprolol tartrate 25 mg tablet 25 mg PO Q12HR #180 tabs 06/23/24 10/08/24 Rx pantoprazole 40 mg tablet,delayed 40 mg PO QAM #90 tabs 06/23/24 10/08/24 Rx release rivaroxaban 20 mg tablet (Xarelto) 20 mg PO DAILY 07/04/24 10/08/24 History irbesartan 150 1 tablet PO DAILY #90 tabs 08/12/24 10/08/24 Rx mg-hydrochlorothiazide 12.5 mg tablet tramadol 50 mg tablet 50 mg PO BID PRN severe pain 08/20/24 09/26/24 Rx (scale score 7-10) #30 tabs fluticasone fur. 100 mcg-umeclid 1 inh inhalation DAILY #28 ea 09/23/24 10/08/24 Rx 62.5 mcg-vilant 25 mcg inhalat.powder (Trelegy Ellipta) Allergies Allergy/AdvReac Type Severity Reaction Status Date / Time lincomycin Allergy Intermediate RASH Verified 10/08/24 08:13 Cephalosporins Allergy Unknown Unknown Verified 10/08/24 08:13 Sulfa (Sulfonamide Allergy Unknown Unknown Verified 10/08/24 08:13 Antibiotics) Tetracyclines Allergy Unknown Unknown Verified 10/08/24 08:13 Vital Signs Vital Signs - 24 hr 10/08/24 08:14 Temperature 96.7 F L Pulse Rate 69 Respiratory Rate 16 Blood Pressure 153/71 H Pulse Oximetry 100 Oxygen Delivery Room Air Exam Const: General: cooperative and healthy appearing Resp: Effort & Inspection: normal respiratory effort and able to speak in complete sentences Auscultation: clear to auscultation bilaterally Cardio: Rate: regular rate Rhythm: regular rhythm GI: Inspection: normal to inspection GI Palp: No No hepatosplenomegaly present Auscultation: normal bowel sounds Rectal Exam: deferred Skin: General skin exam: normal color Psych: Appearance: grossly normal Mental Status: mental status grossly normal Assessment and Plan Assessment and plan (1) Pyloric channel ulcer: Code(s): K25.9 - Gastric ulcer, unspecified as acute or chronic, without hemorrhage or perforation Status: Acute Assessment and Plan: The patient is deemed a good candidate for the procedure. Consent signed. Will proceed.
[2024-10-08 10:02] VITALS: BP 119/53; PULSE 72; RESP 16; O2SAT 98
[2024-10-08 10:12] VITALS: BP 122/61; PULSE 72; RESP 18; O2SAT 98
[2024-10-08 10:22] VITALS: BP 139/62; PULSE 59; RESP 13; O2SAT 100
== END 2024-10-08 10:35 | disposition home or self-care (01) ==
PROVIDERS: PCP Family Medicine; Visit Provider Internal Medicine Gastroenterology
PROC: 0DJ08ZZ Inspection of Upper Intestinal Tract, Via Natural or Artificial Opening Endoscopic (ICD-10-PCS; CPT 43239; principal; 2024-10-08 09:30)
DX: K29.30 Chronic superficial gastritis without bleeding (principal); K21.9 Gastro-esophageal reflux disease without esophagitis; I25.10 Atherosclerotic heart disease of native coronary artery without angina pectoris; I48.91 Unspecified atrial fibrillation; I12.9 Hypertensive chronic kidney disease with stage 1 through stage 4 chronic kidney disease, or unspecified chronic kidney disease; N18.30 Chronic kidney disease, stage 3 unspecified; Z79.51 Long term (current) use of inhaled steroids; Z79.01 Long term (current) use of anticoagulants; Z79.891 Long term (current) use of opiate analgesic; Z98.890 Other specified postprocedural states; Z90.49 Acquired absence of other specified parts of digestive tract; Z98.1 Arthrodesis status; Z95.5 Presence of coronary angioplasty implant and graft; Z87.891 Personal history of nicotine dependence; Z80.0 Family history of malignant neoplasm of digestive organs; Z82.49 Family history of ischemic heart disease and other diseases of the circulatory system
CPT/HCPCS: 43239; 88305; J2704; J7120

== ENCOUNTER 2024-10-29 16:39 | Outpatient (CLI) | payer MEDICARE, SELFPAY ==
--- OUTSIDE RECORDS SUMMARY | 2024-10-29 17:17 | XMS_ITS | Continuity of Care Document ---
Author Organization [facility] Address [id number] [place] [address] [address] [place] [address] Phone Care Team Providers Care Chemical Processor Name Role Phone Doisy, Edward Unavailable Unavailable Advance Directives Directive Yes / No Effective Date File Name No Information Encounters Encounter Description Practice Location Reason(s) For Visit Diagnoses Date Provider Providers Copied on Encounter [facility], [address], [place], [place], [id number], [place] tel:[phone] [facility] No Information Sep-2 1200 5 Doisy Edward. [address] , [address], [place], [address], [place]. tel:[phone] Referring Provider: Kal Rivero MD B, [address], [place], [address]. tel:[phone] Family History Family Member Type Diagnosis Age At Onset No Information Payers Payer name Insurance type Covered alliance party ID Authoriza tion(s) Medicare [facility] [id number] [facility] Medicare Supp [place] [id number] Social History Type Description Quantity Date Captured Comments Sex Male Smoking Status No Information Chief Complaint And Reason For Visit No Information Reason For Referral Reason For Referral No Information History Of Present Illness Encounter Date Complaint History Of Prese nt Illness No Information Functional Status Date Functional Assessmen t No Information Instructions Date Instruction Additional Infor mation No Information Assessments Type Assessment Date No Information Patient Care Teams Name Effective Dates (start - stop) Status Members No Information
[2024-10-29 17:38] LABS: Uric Acid 7.6 mg/dL (3.5-8.5)
== END 2024-10-29 16:40 | disposition home or self-care (01) ==
PROVIDERS: PCP Family Medicine; Visit Provider Family Medicine
DX: M79.671 Pain in right foot (principal)
CPT/HCPCS: 36415; 84550

== ENCOUNTER 2025-01-06 07:15 | Outpatient (CLI) | payer MEDICARE, SELFPAY ==
--- OUTSIDE RECORDS SUMMARY | 2025-01-06 07:19 | XMS_ITS | Encounter Summary ---
Author Organization [facility] Address [address] [place] [address] Care Team Providers Care Supervisor Roller Printing Name Role Phone Unavailable Primary Care Provider Unavailabl e Encounter Details Date Type Department Care Team (Late st Contact Info) Description 05/11/2021 Lab Requisition [facility] DermPath Lab [address] [place] [address] Herve Umanzor MD [address] [place] [address] Social History Tobacco Use Types Packs/Day Years Used Date Smoking Tobacco: Never Assessed Sex and Gender Information Value Date Recorded Sex Assigned at Not on file 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 Gender Identity Not on file Sexual Orientation Not on file documented as of this encounter Plan of Treatment Not on file documented as of this encounter Procedures Procedure Name Priority Date/Time Associated Diagnosis Comments DERMATOPATHOLOGY Routine 05/10/2021 12:0 0 AM CDT documented in this encounter Results * DERMATOPATHOLOGY (05/10/2021 12:00 AM CDT) Case Report Dermatopathology Report Case: [id number] Authorizing Provider: Herve Umanzor MD Collected: 05/10/2021 12:00 AM Ordering Location: [facility] DermPath Lab Received: 05/11/2021 01:50 PM Pathologist: Sri Dawkins MD Specimen: Skin, post vertex scalp midline 3:56 PM CDT DERMATOPATHOLOGY LABORATORY Final Diagnosis Specimen A. 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 Check margins. 3:56 PM T DERMATOPATHOLOGY LABORATORY Gross Description Specimen A: Received is one formalin filled container labeled with the patients name and designated post vertex scalp midline. The specimen consists of a shave removal measuring [id number]. The margin is inked green. Jar 0. 3:56 PM T DERMATOPATHOLOGY LABORATORY Microscopic Description Specimen A. SKIN, post vertex scalp midline: There is hyperkeratosis. Along the undersurface of the epidermis, there are buds of atypical keratinocytes in a disorderly arrangement. There is prominent pigmentation in some of the keratinocytes. MART-1/Melan-A staining highlights regular periodicity of melanocytes along the dermoepidermal junction. In addition, there are rare MART-1/Qdmls-R-qshv tive cells in the superficial dermis that are not appreciated on routine sections. This lesion is present at the margin of the specimen. COMMENT: The dermal MART-1/Melan-A positive cells have been termed MART-1/Melan-A positive cells of undetermined significance and are thought to represent either non-specific staining with MART-1/Melan-A or benign, reactive dermal melanocytes. References: 1. Magdalena MANDEL, Roxane R, Monse J. Melan-A positive dermal cells in malignant melanoma in situ. Journal of Cutaneous Pathology 2015;42: 388-393. 2. Tate A, Geraldine BARROW, Roberth JA. Melanocytes in long-standing sun-exposed skin: quantitative analysis using the MART-1 immunostain. Archives of Dermatology 2006;142(7):871-6. 3:56 PM CDT DERMATOPATHOLOGY LABORATORY Disclaimer An external and internal positive and negative controls are appropriate for the histochemical, immunohistochemical and immunofluorescence stain(s) in this case (if any), except where stated explicitly. The performance characteristics of the stain(s) cited in this report were developed and its performance characteristic determined by the Dermatopathology Laboratory at [facility], directed by Dr. Jermaine Yanez. These tests need not be, and therefore are not, approved by the [place] Food and Drug Administration. The tests are used for clinical purposes. Billing Codes Specimen Charges Stain Charges 13278 1 92247 1 1 3:56 PM CDT DERMATOPATHOLOGY LABORATORY Embedded Images 3:56 PM CDT DERMATOPATHOLOGY LABORATORY Pathology/Cytolog y TISSUE SPECIMEN FROM SKIN / Unknown 05/10/2021 05/11/2021 1:50 PM CDT us Herve Umanzor MD LAB - PATHOLOGY/CYTOLOGY ORD ERABLES Final Result DERMATOPATHOLOGY LABORATORY [facility] - Department of Dermatology [facility] Medicine [address] [place] [address], [address] [phone] documented in this encounter Visit Diagnoses Not on filedocumented in this encounter
--- OUTSIDE RECORDS SUMMARY | 2025-01-06 07:19 | XMS_ITS | Encounter Summary ---
Author Organization [facility] Address [address] [facility] [place] [address] Care Team Providers Care Mold Burner Name Role Phone Unavailable Primary Care Provider Unavailabl e Encounter Details Date Type Department Care Team (Late st Contact Info) Description 03/31/2020 Lab Requisition [facility] DermPath Lab [address] [facility] [place] [address] Herve Umanzor MD [address] [place] [address] Social History Tobacco Use Types Packs/Day Years Used Date Smoking Tobacco: Never Assessed Sex and Gender Information Value Date Recorded Sex Assigned at Not on file 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..] description) 0 3:28 PM CDT DERMATOPATHOLOGY LABORATORY at 1528 CDT Clinical History A-B: BCC - bx proven. Previous Bx: [id number]. 0 3:28 PM CDT DERMATOPATHOLOGY LABORATORY Gross Description Specimen A: Received is one formalin filled container labeled with the patient's name and designated right medial ankle. The specimen consists of a curettage and desiccation biopsy measuring [id number]. Jar 0. Specimen B: Received is one formalin filled container labeled with the patient's name and designated left lateral ankle. The specimen consists of a curettage and desiccation biopsy measuring [id number]. Jar 0. 0 3:28 PM CDT DERMATOPATHOLOGY [...] characteristic determined by the Dermatopathology Laboratory at [facility], directed by Dr. Jermaine Yanez. These tests need not be, and therefore are not, approved by the [place] Food and Drug Administration. The tests are used for clinical purposes. Billing Codes Specimen Charges Stain Charges 48625 94962 1 1 0 3:28 PM CDT DERMATOPATHOLOGY LABORATORY Embedded Images 0 3:28 PM CDT DERMATOPATHOLOGY LABORATORY Pathology/Cytology TISSUE SPECIMEN FROM SKIN / Unknown 03/30/2020 03/31/2020 12:38 PM CDT Miscellaneous samples (specimen) TISSUE SPECIMEN FROM SKIN / Unknown 03/30/2020 03/31/2020 12:38 PM CDT us Herve Umanzor MD LAB - PATHOLOGY/CYTOLOGY ORD ERABLES Final Result DERMATOPATHOLOGY LABORATORY [facility] - Department of Dermatology [facility]/[address] [phone] documented in this encounter Visit Diagnoses Not on filedocumented in this encounter
--- OUTSIDE RECORDS SUMMARY | 2025-01-06 07:19 | XMS_ITS | Clinical Summary ---
Author Organization [facility] [address] Address [address] [place] [address] Care Team Providers Care Supply Chain Development Manager Name Role Phone Patrick Gonzalez MD Primary Care Provider Allergies Active Allergy Reactions Criticality Noted Date Comments Cephalosporins Rash Medium 10/24/2018 Penicillin Other (See comments) Low 06/05/2024 Bleeding ulcer Sulfa (Sulfonamide Antibiotics) Rash Medium 10/24/2018 Medications irbesartan-hyd rochlorothiazi de (AVALIDE) 150-12.5 mg per tablet Take 1 tablet by mouth daily 1 8 Active simvastatin (ZOCOR) 20 mg tablet 1 tablet (20 mg total) daily 5 9 Active multivitamin capsule Take 1 capsule by mouth daily Active ascorbic acid (VITAMIN C) 500 mg tablet,chewabl e 1 tablet/chew tab (500 mg total) daily Active b complex vitamins capsule Take 1 capsule by mouth daily Active PROAIR HFA 90 mcg/actuation inhaler as needed 0 Active traMADol (ULTRAM) 50 mg tablet Take 1 tablet (50 mg total) by mouth every 6 (six) hours as needed for pain Active silodosin (RAPAFLO) 4 mg capsule 1 capsule (4 mg total) Active pantoprazole DR (PROTONIX) 40 mg EC tablet TAKE 1 TABLET BY MOUTH EVERY 12 HOURS 180 tablet 1 4 Active fluticasone/um eclidin/vilant er (TRELEGY ELLIPTA INHAL) Inhale Activ e rivaroxaban (Xarelto) 20 mg tablet TAKE 1 TABLET(20 MG) BY MOUTH DAILY 90 tablet 3 5 Active metoprolol tartrate (LOPRESSOR) 25 mg immediate release tablet TAKE 1 TABLET BY MOUTH EVERY 12 HOURS 180 tablet 2 5 Active metoprolol tartrate (LOPRESSOR) 25 mg immediate release tablet TAKE 1 TABLET BY MOUTH EVERY 12 HOURS 180 tablet 1 4 12/13/19 25 Discontinued Active Problems Problem Noted Date Diagnosed Date Chronic atrial fibrillation 10/24/2018 Coronary artery disease invo lving [place] coronary artery of [place] heart without angina pectoris 10/24/2018 Encounters Date Type Department Care Team Description 11/20/2024 9:30 AM CDT Office Visit [facility] Cardiology [address] [place] [address] Eduardo Villagomez MD Coronary artery disease involving [place] coronary artery of [place] heart without angina pectoris (Primary Dx); Chronic atrial fibrillation (HCC) from Last 3 Months Surgical History Surgery [...] on file 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 Gender Identity Male 10/31/2019 10:08 AM CDT Sexual Orientation Not on file Obstetrics History Last Filed Vital Signs Vital Sign Reading Time Taken Comments Blood Pressure 124/76 11/20/2024 8:46 AM CDT Pulse 67 11/20/2024 8:46 AM CDT Temperature 36.8 C (98.2 F) 09/22/2019 2:30 PM UNIX DEVELOPER Respiratory Rate - - Oxygen Saturation 99% 11/20/2024 8:46 AM CDT Inhaled Oxygen Concentration - - Weight 82.5 kg (181 lb 14.4 oz) 11/20/2024 8:46 AM CDT Height 177.8 cm (5' 10 ) 11/20/2024 8:46 AM CDT Body Mass Index 26.1 11/20/2024 8:46 AM CDT Plan of Treatment Health Maintenance Due Date Last Done Comments Depression Screening 1938 Fall Risk Assessment 1938 DTaP/Tdap/Td Vaccine (1 - Tdap) 1949 Hepatitis B Screening 1956 Pneumococcal vaccine 65+ (1 of 2 - PCV) 1957 Zoster Vaccine (1 of 2) 1988 Well Visit 65+ 2003 Influenza Vaccine (Season Ended) 2025 05/06/2019, 04/23/2016, 05/17/[address] [place] [address] MEDICARE [facility] Care Teams Supply Chain Development Manager Relationship Specialty Start Date End Date Patrick Gonzalez MD [address] [facility] [address] [place] [phone] PCP - General Family Medicine 08/26/18
--- OUTSIDE RECORDS SUMMARY | 2025-01-06 07:19 | XMS_ITS | Encounter Summary ---
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
--- OUTSIDE RECORDS SUMMARY | 2025-01-06 07:19 | XMS_ITS | Clinical Summary ---
Author Organization [facility] Address [address] [place] [address] Care Team Providers Care Machine Repairer Name Role Phone Unavailable Primary Care Provider Unavailabl e Source Comments [facility],non-owned Affiliates and Associated Physician Practices is amultiple site organization consisting of ambulatory clinics and hospital sitesin [place], [place], [place] and [place]. This disclosure is being madepursuant to the Care Everywhere program and may not contain all information available regarding this patient. Last updated 18.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 Gender Identity Not on file Sexual Orientation [...] VACCINE ( - 2023-2 5 season) 2024 DEPRESSION SCREENING 08/13/2024 INFLUENZA VACCINE (Season Ended) 2025 HEPATITIS B VACCINE Aged Out No longe r eligible based on patient's age to complete this topic HIB VACCINE Aged Out No longer eligi ble based on patient's age to complete this topic HPV VACCINE Aged Out No longer eligi ble based on patient's age to complete this topic MENINGOCOCCAL (Group B) VACC INE SHARED DECISION-MAKING Aged Out No longer eligibl e based on patient's age to complete this topic MENINGOCOCCAL GROUPS A/C/Y/W VACCINE Aged Out No longer eligible b ased on patient's age to complete this topic Insurance MEDICARE [facility] [address] [facility]ARE [facility] Member Subscriber Plan / Payer (Ef fective for All Dates) Name:Mian Hartman Relation to Subscriber:Self Name:Mian Hartman Payer ID:Not on file Group ID:[id number] Type:Commercial Address: [place] [id number] SELF PAY NO INSURANCE Member Subscriber Plan / Payer (Ef fective for All Dates) Name:Mian Hartman Member ID:Not on file Relation to Subscriber:Not on file Name:MIAN HARTMAN Subscriber ID:Not on file (Home) Address: [address] [place] [address] [place] [address] Payer ID:Not on file Group ID:Not on file Type:Self Pay Address: [place], [place]
--- OUTSIDE RECORDS SUMMARY | 2025-01-06 07:19 | XMS_ITS | Encounter Summary ---
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
--- OUTSIDE RECORDS SUMMARY | 2025-01-06 07:19 | XMS_ITS | Encounter Summary ---
Author Organization [facility] Address [address] [facility] [place] [address] Care Team Providers Care Ornamental Ironworking Supervisor Name Role Phone Unavailable Primary Care Provider Unavailabl e Encounter Details Date Type Department Care Team (Late st Contact Info) Description 03/10/2020 Lab Requisition [facility] DermPath Lab [address] [facility] [place] [address] Herve Umanzor MD [address] [place] [address] Social History Tobacco Use Types Packs/Day Years Used Date Smoking Tobacco: Never Assessed Sex and Gender Information Value Date Recorded Sex Assigned at Not on file 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 Gender Identity Not on file Sexual Orientation Not on file documented as of this encounter Plan of Treatment Not on file documented as of this encounter Procedures Procedure Name Priority Date/Time Associated Diagnosis Comments DERMATOPATHOLOGY Routine 03/09/2020 12:0 0 AM CDT documented in this encounter Results * DERMATOPATHOLOGY (03/09/2020 12:00 AM CDT) Case Report Dermatopathology Report Case: [id number] Authorizing Provider: Herve Umanzor MD Collected: 03/09/2020 12:00 AM Ordering Location: [facility] DermPath Lab Received: 03/10/2020 01:14 PM Pathologist: [...] (L73.8) (see microscopic description) 0 6:32 PM [facility] DERMATOPATHOLOGY LABORATORY at 1832 CDT Clinical History A-B: R/O BCC, ISK, Verde's. C: R/O BCC. 0 6:32 PM CDT DERMATOPATHOLOGY LABORATORY Gross Description Specimen A: Received is one formalin filled container labeled with the patient's name and designated right lower medial leg above ankle. The specimen consists of a shave biopsy measuring [id number]. Jar 0. Specimen B: Received is one formalin filled container labeled with the patient's name and designated left lateral lower leg. The specimen consists of a shave biopsy measuring [id number]. Jar 0. Specimen C: Received is one formalin filled container labeled with the patient's name and designated midline upper abdomen. The specimen consists of a shave biopsy measuring [id number]. Jar 0. 0 6:32 PM [facility] DERMATOPATHOLOGY LABORATORY Microscopic Description Specimen A. SKIN, [...] in the sections examined. 0 6:32 PM [facility] DERMATOPATHOLOGY LABORATORY Disclaimer An external and internal positive and negative controls are appropriate for the histochemical, immunohistochemical and immunofluorescence stain(s) in this case (if any), except where stated explicitly. The performance characteristics of the stain(s) cited in this report were developed and its performance characteristic determined by the Dermatopathology Laboratory at [facility], directed by Dr. Jermaine Yanez. These tests need not be, and therefore are not, approved by the [place] Food and Drug Administration. The tests are used for clinical purposes. Billing Codes Specimen Charges Stain Charges 70093 18806 90819 1 1 1 0 6:32 PM CDT DERMATOPATHOLOGY LABORATORY Embedded Images 0 6:32 PM CDT DERMATOPATHOLOGY LABORATORY Pathology/Cytology TISSUE SPECIMEN FROM SKIN / Unknown 03/09/2020 03/10/2020 1:14 PM CDT Miscellaneous samples (specimen) TISSUE SPECIMEN FROM SKIN / Unknown 03/09/2020 03/10/2020 1:14 PM CDT Miscellaneous samples (specimen) TISSUE SPECIMEN FROM SKIN / Unknown 03/09/2020 03/10/2020 1:14 PM CDT Herve Umanzor MD LAB - PATHOLOGY/CYTOLOGY ORD ERABLES Final Result DERMATOPATHOLOGY LABORATORY [facility] - Department of Dermatology [facility]/[address] [phone] documented in this encounter Visit Diagnoses Not on filedocumented in this encounter
--- OUTSIDE RECORDS SUMMARY | 2025-01-06 07:19 | XMS_ITS | Referral Summary ---
Author Organization [facility] [address] [place] [address] [address] [place] [address] Care Team Providers Care Content Designer Name Role Phone Patrick Gonzalez MD Primary Care Provider Encounters Date Type Department Care Team Description 11/20/2024 9:30 AM CDT Office Visit [facility] Cardiology [address] [facility] [address] [place] [address] Eduardo Villagomez MD Coronary artery disease involving [place] coronary artery of [place] heart without angina pectoris (Primary Dx); Chronic atrial fibrillation (HCC) from Last 3 Months Allergies Active Allergy [...] fibrillation 10/24/2018 Coronary artery disease invo lving [place] coronary artery of [place] heart without angina pectoris 10/24/2018 Social History [...] on file 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 Gender Identity Male 10/31/2019 10:08 AM CDT Sexual Orientation Not on file Last Filed Vital Signs Vital Sign Reading Time Taken Comments Blood Pressure 124/76 11/20/2024 8:46 AM CDT Pulse 67 11/20/2024 8:46 AM CDT Temperature 36.8 C (98.2 F) 09/22/2019 2:30 PM OVEN TECHNICIAN Respiratory Rate - - Oxygen Saturation 99% 11/20/2024 8:46 AM CDT Inhaled Oxygen Concentration - - Weight 82.5 kg (181 lb 14.4 oz) 11/20/2024 8:46 AM CDT Height 177.8 cm (5' 10 ) 11/20/2024 8:46 AM CDT Body Mass Index 26.1 11/20/2024 8:46 AM CDT Plan of Treatment Not on file Insurance MEDICARE [facility] [place] [address] MEDICARE [facility] [place] [address] MEDICARE [facility] Care Teams Content Designer Relationship Specialty Start Date End Date Patrick Gonzalez MD [address] [facility] [address] [place] [address] PCP - General Family Medicine 08/26/18
--- OUTSIDE RECORDS SUMMARY | 2025-01-06 07:19 | XMS_ITS | Continuity of Care Document ---
Author Organization [facility] Address [address] [place] [address] [address] [place] [address] Phone Care Team Providers Care Piece Goods Clerk Name Role Phone Doisy, Edward Unavailable Unavailable Advance Directives Directive Yes / No Effective Date File Name No Information Encounters Encounter Description Practice Location Reason(s) For Visit Diagnoses Date Provider Providers Copied on Encounter [facility], [address], [place], [place], [id number], [place] tel:[phone] SEC [facility] No Information Sep-2 1200 5 Doisy Edward. [address] , [address], [place], [address], [place]. tel:[phone] Referring Provider: Kal Rivero MD B, [address], [place], [address]. tel:[phone] Family History Family Member Type Diagnosis Age At Onset No Information Payers Payer name Insurance type Covered democrat ID Authoriza tion(s) Medicare [facility] [id number] [facility] Medicare Supp [place] [id number] Social History Type Description Quantity Date Captured [...]
[2025-01-06 08:10] LABS: Basophils Percent Auto 0.4 % (0.2-1.2); Eosinophils Absolute Auto 0.1 K/mm3 (0-0.3); Hematocrit 41.6 % (42.0-52.0); Immature Granulocyte Absolute 0.03 K/mm3 (0.00-0.031); Immature Granulocyte Percent A 0.4 % (0-0.5); Mean Corpuscular HGB Conc 31.3 g/dl (32-36); Mean Corpuscular Hemoglobin 28.1 pg (26-34); Mean Platelet Volume 10.8 fl (7.4-10.4); Monocytes Absolute Auto 0.8 K/mm3 (0.1-0.6); Monocytes Percent Auto 11.8 % (2.6-8.5); Neutrophils Absolute Auto 4.8 K/mm3 (1.3-6.7); Neutrophils Percent Auto 69.4 % (45.5-73.1); Platelet Count Result 309 k/mm3 (150-375); Red Blood Count 4.62 M/mm3 (4.6-6.20); Red Cell Distribution Width 15.1 % (11.5-14.5); White Blood Count 6.9 K/mm3 (4.5-10.0)
[2025-01-06 09:00] LABS: Iron 101 ug/dL (49-181)
[2025-01-06 09:06] LABS: Alanine Aminotransferase 27 U/L (6-50); Albumin Level 4.3 g/dL (3.5-5.1); Alkaline Phosphatase 67 U/L (38-126); Anion Gap 9 mmol/L (4-12); Aspartate Amino Transferase 30 U/L (17-59); Bilirubin,Total 0.8 mg/dL (0.2-1.3); Blood Urea Nitrogen 34 mg/dL (9-20); Calcium 9.1 mg/dL (8.4-10.2); Carbon Dioxide 25 mmol/L (22-30); Chloride 109 mmol/L (98-107); Estimated Glomerular Filt Rate 55; Glucose 96 mg/dL (65-110); Potassium 4.9 mmol/L (3.4-5.0); Sodium 143 mmol/L (137-145)
[2025-01-06 09:10] LABS: Percent Iron Saturation 25 % (20-50)
== END 2025-01-06 07:16 | disposition home or self-care (01) ==
LOC: ANHLAB 07:17
PROVIDERS: PCP Family Medicine; Visit Provider Student in an Organized Health Care Education/Training Program
DX: I10 Essential (primary) hypertension (principal); D50.9 Iron deficiency anemia, unspecified
CPT/HCPCS: 36415; 80053; 83540; 83550; 85025

== ENCOUNTER 2025-06-29 07:33 | Outpatient (CLI) | payer MEDICARE, SELFPAY ==
[2025-06-29 07:59] LABS: Hematocrit 40.5 % (42.0-52.0); Hemoglobin 13.2 g/dL (14.0-18.0); Immature Granulocyte Percent A 0.1 % (0-0.5); Lymphocytes Absolute Auto 1.06 K/mm3 (0.9-3.2); Mean Corpuscular HGB Conc 32.6 g/dl (32-36); Mean Corpuscular Hemoglobin 30.0 pg (26-34); Mean Corpuscular Volume 92.0 fl (80-100); Nucleated Red Blood Cells Absolute Auto 0.000 K/mm3 (0.0-0.012); Nucleated Red Blood Cells Perc 0.0 % (0.0-0.2); Platelet Count Result 300 k/mm3 (150-375); Red Blood Count 4.40 M/mm3 (4.6-6.20); White Blood Count 6.9 K/mm3 (4.5-10.0)
[2025-06-29 08:23] LABS: Iron 113 ug/dL (49-181)
[2025-06-29 08:28] LABS: Alanine Aminotransferase 21 U/L (6-50); Albumin Level 4.2 g/dL (3.5-5.1); Alkaline Phosphatase 71 U/L (38-126); Anion Gap 10 mmol/L (4-12); Aspartate Amino Transferase 29 U/L (17-59); Bilirubin,Total 1.0 mg/dL (0.2-1.3); Blood Urea Nitrogen 31 mg/dL (9-20); Calcium 9.2 mg/dL (8.4-10.2); Carbon Dioxide 24 mmol/L (22-30); Chloride 107 mmol/L (98-107); Cholesterol 125 mg/dL (0-200); Estimated Glomerular Filt Rate 48; Glucose 105 mg/dL (65-110); HDL Direct 34 mg/dL; Potassium 4.5 mmol/L (3.4-5.0); Sodium 141 mmol/L (137-145); Total Protein 7.2 g/dL (6.3-8.2); Triglycerides 149 mg/dL (<150)
[2025-06-29 08:38] LABS: Add Urine Microscopic? YES; Appearance Urine Clear (Clear); Glucose Urine UA Negative (Negative); Leukocyte Esterase Ur Negative LEU/UL (Negative); Nitrate Urine Negative (Negative); Non Pathogenic Casts 0-2; Percent Iron Saturation 31 % (20-50); Specific Grav Ur 1.013 (1.001-1.035)
[2025-06-29 09:06] LABS: Prostate Specific Antigen 6.4 ng/mL (< OR = 4.0); Thyroid Stimulating Hormone 2.260 uIU/mL (0.465-4.680)
[2025-06-29 09:08] LABS: Ferritin 28.50 ng/mL (11.1-264)
== END 2025-06-29 07:34 | disposition home or self-care (01) ==
PROVIDERS: PCP Family Medicine; Visit Provider Physician Assistant
DX: D50.9 Iron deficiency anemia, unspecified (principal); I13.10 Hypertensive heart and chronic kidney disease without heart failure, with stage 1 through stage 4 chronic kidney disease, or unspecified chronic kidney disease; R97.20 Elevated prostate specific antigen [PSA]; I25.10 Atherosclerotic heart disease of native coronary artery without angina pectoris; Z95.5 Presence of coronary angioplasty implant and graft; I48.91 Unspecified atrial fibrillation; E78.2 Mixed hyperlipidemia; N18.30 Chronic kidney disease, stage 3 unspecified; I12.9 Hypertensive chronic kidney disease with stage 1 through stage 4 chronic kidney disease, or unspecified chronic kidney disease; N18.31 Chronic kidney disease, stage 3a; N40.1 Benign prostatic hyperplasia with lower urinary tract symptoms; J44.9 Chronic obstructive pulmonary disease, unspecified; Z00.00 Encounter for general adult medical examination without abnormal findings
CPT/HCPCS: 36415; 80053; 80061; 81001; 82728; 83540; 83550; 84153; 84443; 85025

== ENCOUNTER 2025-08-10 10:27 | Outpatient (CLI) | payer MEDICARE, SELFPAY ==
--- NOTE | ~2025-08-10 | XR_ITS ---
XR ribs BI 3V w CXR 2V INDICATION: Right-sided chest pain, fall COMPARISON: NONE PA CHEST: No acute pulmonary process is evident. Cardiac size and pulmonary vascularity are unremarkable There is no pleural effusion or pneumothorax. No consolidation is identified. BILATERAL RIBS: Three views of the right and left ribs demonstrate no acute rib fracture. IMPRESSION: 1. No acute pulmonary process. 2. No rib fracture is identified. Reviewed, dictated and finalized at location S. COMPRESSOR ENGINEER
--- OUTSIDE RECORDS SUMMARY | 2025-08-10 10:56 | XMS_ITS | Encounter Summary ---
Author Organization [facility] Address [address] [place] [address] Care Team Providers Care Survey Field Technician Name Role Phone Unavailable Primary Care Provider Unavailabl e Encounter Details Date Type Department Care Team (Late st Contact Info) Description 05/11/2021 Lab Requisition [facility] DermPath Lab [address] [place] [address] Herve Umanzor MD [address] [place] [address] Social History Tobacco Use Types Packs/Day Years Used Date Smoking Tobacco: Never Assessed Sex and Gender Information Value Date Recorded Sex Assigned at Not on file 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 Gender Identity Not on file Sexual Orientation Not on file documented as of this encounter Plan of Treatment Not on file documented as of this encounter Procedures Procedure Name Priority Date/Time Associated Diagnosis Comments DERMATOPATHOLOGY Routine 05/10/2021 12:0 0 AM CDT documented in this encounter Results * DERMATOPATHOLOGY (05/10/2021 12:00 AM CDT) Case Report Dermatopathology Report Case: [id number] Authorizing Provider: Herve Umanzor MD Collected: 05/10/2021 12:00 AM Ordering Location: [facility] DermPath Lab Received: 05/11/2021 01:50 [...] specimen consists of a shave removal measuring [id number]. The margin is inked green. Jar 0. [...] dermoepidermal junction. In addition, there are rare MART-1/Apejo-X-lgoq tive cells in the superficial dermis that [...] characteristic determined by the Dermatopathology Laboratory at [facility], directed by Dr. Jermaine Yanez. These tests need not be, and therefore are not, approved by the [place] Food and Drug Administration. The tests are used for clinical purposes. Billing Codes Specimen Charges Stain Charges 09169 1 42437 1 1 3:56 PM CDT DERMATOPATHOLOGY LABORATORY Embedded Images 3:56 PM CDT DERMATOPATHOLOGY LABORATORY Pathology/Cytolog y TISSUE SPECIMEN FROM SKIN / Unknown 05/10/2021 05/11/2021 1:50 PM CDT us Herve Umanzor MD LAB - PATHOLOGY/CYTOLOGY ORD ERABLES Final Result DERMATOPATHOLOGY LABORATORY [facility] - Department of Dermatology [facility] Specialized Medicine [address] [place] [address], [address] [phone] documented in this encounter Visit Diagnoses Not on filedocumented in this encounter
--- OUTSIDE RECORDS SUMMARY | 2025-08-10 10:56 | XMS_ITS | Encounter Summary ---
Author Organization [facility] Address [address] [facility] [place] [address] Care Team Providers Care Iron Installer Name Role Phone Unavailable Primary Care Provider Unavailabl e Encounter Details Date Type Department Care Team (Late st Contact Info) Description 03/31/2020 Lab Requisition [facility] DermPath Lab [address] [place] [address] Herve Umanzor MD [address] [address] Social History Tobacco Use Types Packs/Day Years Used Date Smoking Tobacco: Never Assessed Sex and Gender Information Value Date Recorded Sex Assigned at Not on file 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 Gender Identity Not on file Sexual Orientation Not on file documented as of this encounter Plan of Treatment Not on file documented as of this encounter Procedures Procedure Name Priority Date/Time Associated Diagnosis Comments DERMATOPATHOLOGY Routine 03/30/2020 12:0 0 AM CDT documented in this encounter Results * DERMATOPATHOLOGY (03/30/2020 12:00 AM CDT) Case Report Dermatopathology Report Case: [id number] Authorizing Provider: Herve Umanzor MD Collected: 03/30/2020 12:00 AM Ordering Location: [facility] DermPath Lab Received: 03/31/2020 12:38 PM Pathologist: [...] A-B: BCC - bx proven. Previous Bx: [id number]. 0 3:28 PM CDT DERMATOPATHOLOGY LABORATORY Gross Description Specimen A: Received is one formalin filled container labeled with the patient's name and designated right medial ankle. The specimen consists of a curettage and desiccation biopsy measuring [id number]. Jar 0. Specimen B: Received is one formalin filled container labeled with the patient's name and designated left lateral ankle. The specimen consists of a curettage and desiccation biopsy measuring [id number]. Jar 0. 0 3:28 PM CDT DERMATOPATHOLOGY [...] characteristic determined by the Dermatopathology Laboratory at [facility], directed by Dr. Jermaine Yanez. These tests need not be, and therefore are not, approved by the [place] Food and Drug Administration. The tests are used for clinical purposes. Billing Codes Specimen Charges Stain Charges 07732 31731 1 1 0 3:28 PM CDT DERMATOPATHOLOGY LABORATORY Embedded Images 0 3:28 PM CDT DERMATOPATHOLOGY LABORATORY Pathology/Cytology TISSUE SPECIMEN FROM SKIN / Unknown 03/30/2020 03/31/2020 12:38 PM CDT Miscellaneous samples (specimen) TISSUE SPECIMEN FROM SKIN / Unknown 03/30/2020 03/31/2020 12:38 PM CDT us Herve Umanzor MD LAB - PATHOLOGY/CYTOLOGY ORD ERABLES Final Result DERMATOPATHOLOGY LABORATORY [facility] - Department of Dermatology [facility]/[address] [phone] documented in this encounter Visit Diagnoses Not on filedocumented in this encounter
--- OUTSIDE RECORDS SUMMARY | 2025-08-10 10:56 | XMS_ITS | Clinical Summary ---
Author Organization [facility] [address] Address [address] [place] [address] Care Team Providers Care Smash Hand Name Role Phone Patrick Gonzalez MD Primary [...] capsule 1 capsule (4 mg total) Active fluticasone/ume clidin/vilanter (TRELEGY ELLIPTA INHAL) Inhale Activ e rivaroxaban (Xarelto) 20 mg tablet TAKE 1 TABLET(20 MG) BY MOUTH DAILY 90 tablet 3 11/24/2024 Active metoprolol tartrate (LOPRESSOR) 25 mg immediate release tablet TAKE 1 TABLET BY MOUTH EVERY 12 HOURS 180 tablet 2 12/12/[address] (PROTONIX) 40 mg EC tablet TAKE 1 TABLET BY MOUTH EVERY 12 HOURS 180 tablet 1 03/19/2025 Active Active Problems Problem Noted Date Diagnosed Date Chronic atrial fibrillation 10/24/2018 Coronary artery disease invo lving [place] coronary artery of [place] heart without angina pectoris 10/24/2018 Encounters Date Type Department Care Team Description 06/16/2025 1:00 PM WELLNESS GUIDE Office Visit [facility] Cardiology [address] [place] [address] Eduardo Villagomez MD Chronic atrial fibrillation (HCC) (Primary Dx); Coronary artery disease involving [place] coronary artery of [place] heart without angina pectoris from Last 3 Months Surgical History Surgery [...] on file Legal Sex Male 1:31 PM WELLNESS GUIDE Gender Identity Male 10/31/2019 10:08 AM CDT Sexual Orientation Not on file Last Filed Vital Signs Vital Sign Reading Time Taken Comments Blood Pressure 130/78 06/16/2025 12:56 PM WELLNESS GUIDE Pulse 80 06/16/2025 12:56 PM WELLNESS GUIDE Temperature 36.8 C (98.2 F) 09/22/2019 2:30 PM WELLNESS GUIDE Respiratory Rate - - Oxygen Saturation 99% 06/16/2025 12: 56 PM WELLNESS GUIDE Inhaled Oxygen Concentration - - Weight 82.9 kg (182 lb 12.8 oz) 025 12:56 PM WELLNESS GUIDE Height 177.8 cm (5' 10) 06/16/2025 12: 56 PM WELLNESS GUIDE Body Mass Index 26.23 06/16/2025 12:56 PM WELLNESS GUIDE Plan of Treatment Health Maintenance Due Date Last Done Comments Depression Screening 1938 Fall Risk Assessment 1938 DTaP/Tdap/Td Vaccine (1 - Tdap) 1949 Hepatitis B Screening 1956 Pneumococcal vaccine 65+ (1 of 2 - PCV) 1957 Zoster Vaccine (1 of 2) 1988 Well Visit 65+ 2003 Influenza Vaccine (#1) 2025 9, 05/30/2017, 04/23/2016, Additional [place] [address] MEDICARE [facility] Member Subscriber Plan / Payer (Ef fective 2018-Present) Name:Mian Hartman Relation to Subscriber:Self Name:Mian Hartman Payer ID:[id number] Group ID:[id number] [id number] Type:COMMERCIAL Address: [employer] [address] [place] [address] [facility] [place] [address] MEDICARE Member Subscriber Plan / Payer (Ef fective 2003-Present) Name:Mian Hartman Member ID:[id number] Relation to Subscriber:Self Name:Mian Hartman Subscriber ID:[id number] Payer ID:[id number] Group ID:Not on file Type:MEDICARE TRADITIONAL Address: [address] [place] [phone] [facility] [place] [address] MEDICARE Member Subscriber Plan / Payer (Ef fective 2003-Present) Name:Mian Hartman Member ID:[id number] Relation to Subscriber:Self Name:Mian Hartman Subscriber ID:[id number] Payer ID:[id number] Group ID:Not on file Type:MEDICARE TRADITIONAL Address: [address] [place] [phone] [facility] Care Teams Smash Hand Relationship Specialty Start Date End Date Patrick Gonzalez MD [address] [facility] [address] [place] [address] PCP - General Family Medicine 08/26/18
--- OUTSIDE RECORDS SUMMARY | 2025-08-10 10:56 | XMS_ITS | Clinical Summary ---
Author Organization [facility] Address [address] [place] [address] Care Team Providers Care Lay Out Former Name Role Phone Unavailable Primary Care Provider Unavailabl e Source Comments [facility],non-owned Affiliates and Associated Physician Practices is amultiple site organization consisting of ambulatory clinics and hospital sitesin [place], [place], [place] and [place]. This disclosure is being madepursuant to the Care Everywhere program and may not contain all information available regarding this patient. 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[employer] Gender Identity Not on file Sexual Orientation Not on file Plan of Treatment Health Maintenance Due Date Last Done Comments MEDICARE AWV 12 MONTHS 1938 DTAP/TDAP/TD VACCINES (1 - Tdap) 1957 PNEUMOCOCCAL VACCINE 50+ (1 of 1 - PCV) 1988 ZOSTER VACCINE (1 of 2) 1988 Respiratory Syncytial Virus (RSV) Vaccine Pt: or over 60 yrs (1 - 1-dose 75+ series) 2013 DEPRESSION SCREENING 08/13/2024 COVID-19 VACCINE (1 - 2024-2 6 season) 2025 INFLUENZA VACCINE (#1) 2025 HEPATITIS B VACCINE Aged Out No [...] age to complete this topic Insurance MEDICARE [facility] [place] [address] MEDICARE [facility] Member Subscriber Plan / Payer (Ef fective for All Dates) Name:Mian Hartman Relation to Subscriber:Self Name:Mian Hartman Payer ID:Not on file Group ID:[id number] Type:Commercial Address: [place] [phone] SELF PAY NO INSURANCE Member Subscriber Plan / Payer (Ef fective for All Dates) Name:Mian Hartman Member ID:Not on file Relation to Subscriber:Not on file Name:MIAN HARTMAN Subscriber ID:Not on file (Home) Address: [address] [place] [address] [place] [address] Payer ID:Not on file Group ID:Not on file Type:Self Pay Address: [place], [place]
--- OUTSIDE RECORDS SUMMARY | 2025-08-10 10:56 | XMS_ITS | Encounter Summary ---
Author Organization [facility] Address [address] [place] [address] Care Team Providers Care Senior Operations Manager Name Role Phone Unavailable Primary Care Provider Unavailabl e Encounter Details Date Type Department Care Team (Late st Contact Info) Description 03/10/2020 Lab Requisition [facility] [address] [place] [address] Herve Umanzor MD [address] [place] [address] Social History Tobacco Use Types Packs/Day Years Used Date Smoking Tobacco: Never Assessed Sex and Gender Information Value Date Recorded Sex Assigned at Not on file 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 Gender Identity Not on file Sexual Orientation Not on file documented as of this encounter Plan of Treatment Not on file documented as of this encounter Procedures Procedure Name Priority Date/Time Associated Diagnosis Comments DERMATOPATHOLOGY Routine 03/09/2020 12:0 0 AM CDT documented in this encounter Results * DERMATOPATHOLOGY (03/09/2020 12:00 AM CDT) Case Report Dermatopathology Report Case: [id number] Authorizing Provider: Hevre Umanzor MD Collected: 03/09/2020 12:00 AM Ordering Location: [facility] Received: 03/10/2020 01:14 PM [...] (L73.8) (see microscopic description) 0 6:32 PM [facility] at 1832 CDT Clinical History A-B: R/O BCC, ISK, Verde's. C: R/O BCC. 0 6:32 PM CDT DERMATOPATHOLOGY LABORATORY Gross Description Specimen A: Received is one formalin filled container labeled with the patient's name and designated right lower medial leg above ankle. The specimen consists of a shave biopsy measuring [id number]. Jar 0. Specimen B: Received is one formalin filled container labeled with the patient's name and designated left lateral lower leg. The specimen consists of a shave biopsy measuring [id number]. Jar 0. Specimen C: Received is one formalin filled container labeled with the patient's name and designated midline upper abdomen. The specimen consists of a shave biopsy measuring [id number]. Jar 0. 0 6:32 PM [facility] Microscopic Description Specimen A. SKIN, [...] in the sections examined. 0 6:32 PM [facility] Disclaimer An external and internal positive and negative controls are appropriate for the histochemical, immunohistochemical and immunofluorescence stain(s) in this case (if any), except where stated explicitly. The performance characteristics of the stain(s) cited in this report were developed and its performance characteristic determined by the Dermatopathology Laboratory at [facility], directed by Dr. Jermaine Yanez. These tests need not be, and therefore are not, approved by the [place] Food and Drug Administration. The tests are used for clinical purposes. Billing Codes Specimen Charges Stain Charges 30426 [id number] 1 1 1 0 6:32 PM CDT [...] PATHOLOGY/CYTOLOGY ORD ERABLES Final Result DERMATOPATHOLOGY LABORATORY [facility] - Department of Dermatology [facility]/[address] [phone] documented in this encounter Visit Diagnoses Not on filedocumented in this encounter
--- OUTSIDE RECORDS SUMMARY | 2025-08-10 10:56 | XMS_ITS | Encounter Summary ---
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
--- OUTSIDE RECORDS SUMMARY | 2025-08-10 10:56 | XMS_ITS | Encounter Summary ---
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
== END 2025-08-10 10:28 | disposition home or self-care (01) ==
PROVIDERS: PCP Family Medicine; Visit Provider Physician Assistant Medical
DX: R09.1 Pleurisy (principal); R07.89 Other chest pain
CPT/HCPCS: 71046; 71110